=== PATIENT | female | born 1935 | race Caucasian/White ===

== ENCOUNTER 2020-08-29 15:18 | Inpatient (IN) ==
[2020-08-29] MEDS ORDERED: SODIUM CHLORIDE 0.9% 500 ML IV ONE (16:09)
--- NOTE | 2020-08-29 16:31 | XRay Report ---
XR chest 1V portable HISTORY: SEPSIS COMPARISON: None. FINDINGS: Progressive displacement of the right humeral head/neck fracture. This now demonstrates up to 3 mm of medial displacement. No dislocation. The heart is mildly enlarged. No pneumothorax. No ple ural effusions. Mild diffuse interstitial thickening with patchy airspace opacities in the mid to low er lung zones. IMPRESSION: 1. Mild diffuse interstitial thickening with patchy hazy airspace opacity within the mid to lower jacoby g zones. This could represent developing pulmonary edema or a pneumonia. 2. The heart is mildly enlarged. 3. Progressive displacement of the right humeral neck fracture. ACT 112: Negative or not required by law. Electronically signed by: John Iqbal M.D. 08/29/2020 4:30 PM
[2020-08-29 17:09] LABS: Basophils # (auto) 0.02 K/uL (0-0.2); Basophils % (auto) 0.2 %; Eosinophils # (auto) 0.21 K/uL (0-0.5); Eosinophils % (auto) 2.2 %; Hematocrit (blood only) 32.4 % (37-47); Hemoglobin 10.1 g/dL (12.0-16.0); Immature Granulocytes # (auto) 0.02 K/uL (0.00-0.02); Immature Granulocytes % (auto) 0.2 %; Lymphocytes # (auto) 3.01 K/uL (1.2-3.4); Mean Corpuscular Hemoglobin 27.4 pg (25-34); Mean Corpuscular Hgb Conc 31.2 g/dL (32-36); Mean Platelet Volume 9.9 fL (7.4-10.4); Monocytes # (auto) 0.86 K/uL (0.11-0.59); Monocytes % (auto) 9.1 %; Neutrophils # (auto) 5.29 K/uL (1.4-6.5); Neutrophils % (auto) 56.3 %; Platelet Count 332 K/uL (130-400); RDW Coefficient of Variation 18.8 % (11.5-14.5); Red Blood Count 3.68 M/uL (4.2-5.4); White Blood Count 9.41 K/uL (4.8-10.8)
[2020-08-29 17:29] LABS: Alanine Aminotransferase 45 U/L (12-78); Albumin Level 2.6 gm/dl (3.4-5.0); Aspartate Aminotransferase 72 U/L (15-37); BUN Creatinine Ratio 27.4 (10-20); Bilirubin Direct 0.3 mg/dl (0-0.2); Blood Urea Nitrogen 31 mg/dl (7-18); Calcium 9.7 mg/dl (8.5-10.1); Carbon Dioxide 27 mmol/L (21-32); Chloride 105 mmol/L (98-107); Creatinine Clr Calc Pharmacy 41.2 ml/min; Est GFR (African American) 51.7; Est GFR (Non-African American) 44.6; Glucose 81 mg/dl (70-99); Lipase 79 U/L (73-393); Potassium 4.3 mmol/L (3.5-5.1); Sodium 138 mmol/L (136-145)
[2020-08-29 17:30] LABS: Albumin Globulin Ratio 0.8 (0.9-2); Alkaline Phosphatase 191 U/L (45-117); Bilirubin,Total 0.8 mg/dl (0.2-1); Creatine Kinase 48 U/L (26-192); Globulin 3.4 gm/dl (2.5-4.0); Phosphorus 2.9 mg/dl (2.5-4.9); Troponin I < 0.015 ng/ml (0-0.045)
[2020-08-29 17:31] LABS: INR 1.2 (0.9-1.1); Partial Thromboplastin Ratio 1.3; Partial Thromboplastin Time 34.3 Seconds (21.0-31.0)
--- NOTE | 2020-08-29 17:36 | Emergency Department Note ---
Impression & Plan Generalized weakness, Closed fracture of right proximal humerus, Recurrent falls, Confusion ED Provider Note NAME: HUONG EVERETT AGE: 85 SEX: F ARRIVES VIA: Ambulance INFORMANT: Patient, Niece ED PROVIDER(S): Richy Kinsey MD CHIEF COMPLAINT: Confusion, weakness PLAN: Disposition: Admit MEDICAL DECISION MAKING: The patient is a pleasant 85-year-old woman with a past medical history of TIA, A. fib on Eliquis, hypertension, hyperlipidemia, recent ED visit on 08/04 for mechanical fall where she suffered a right proximal humerus fracture where she preferred to not have surgery discharged to rehab subsequently now residing at intermediate facility who presents to the emergency department from her assisted living facility accompanied by her niece for worsening generalized weakness, increased confusion with repeat fall couple of days ago where she declined ED evaluation. She denies any head strike when she fell 2 days ago but the fall was unwitnessed. No report of fevers but there is concern there may be a UTI as she did have this recently. On arrival the patient is fatigued appearing but no acute distress, afebrile with stable vital signs. She appears clinically dry. Abdomen is benign. She does have mild lumbar tenderness without midline tenderness or step-offs. Pelvis is stable. Hips full range of motion bilaterally. She does have resolving ecchymosis on the right side of her head in setting of her fall several weeks ago. There is no acute traumatic findings of the head. She has no focal neurologic deficits. EKG without overt acute ischemia. CXR demonstrates interstitial thickening with patchy hazy airspace opacity within the mid to lower lung zones. WBC and platelets wnl. H/H similar to prior. Chemistry without acidosis. BUN/Cr > 30 c/w patient's clinically dry appearance. Electrolytes unremarkable. LFTs without significant abnormality. Troponin negative/undetectable. BNP wnl. Procalcitonin is not elevated. CT head negative for acute process. CT abd pelvis with subacute L1 compression fracture without retropulsion and otherwise no acute abdominal findings. UA without convincing evidence of infection. Covid-19, influenza, and RSV PCR negative. Upon re-evaluation the patient reported feeling improved with IVF hydration. We discussed her imaging at they did not feel that she has had a cough/symptoms to suggest PNA and so we agreed to defer treatment at this time. However, the patient's niece did feel as though she had not improved enough to return to her assisted living facility given she reported that he patient periodically would be "seeing things". Unfortunately, she did not think she would be able to participate sufficiently to go to [facility]. Thus the patient and her niece, agreed with plan for admission, PT/OT and likely SNF placement. Case was discussed with Dr. Dorman, [facility] hospitalist, who will evaluate the patient for admission. Triage Nursing notes reviewed and agree them. Prior medical records reviewed Vital Signs: reviewed and remarkable for no significant abnormalities Differential diagnosis: Infection, dehydration, metabolic abnormality, hypo/hyperglycemia, electrolyte disturbance, anemia, hypoxia, cardiac sources, intracerebral event, toxicologic, neurologic, as well as other pathologies. ER treatment provided: See below. Diagnostics interpreted by me: ECG: NSR, 61 bpm, no ectopy, no overt ST elevation or depression. Cardiac Monitoring: An order for continuous cardiac monitoring was placed and demonstrated NSR, 61 bpm, no ectopy. Laboratory studies: See below Imaging studies: XR chest 1V portable HISTORY: SEPSIS COMPARISON: None. FINDINGS: Progressive displacement of the right humeral head/neck fracture. This now demonstrates up to 3 mm of medial displacement. No dislocation. The heart is mildly enlarged. No pneumothorax. No pleural effusions. Mild diffuse interstitial thickening with patchy airspace opacities in the mid to lower lung zones. IMPRESSION: 1. Mild diffuse interstitial thickening with patchy hazy airspace opacity within the mid to lower lung zones. This could represent developing pulmonary edema or a pneumonia. 2. The heart is mildly enlarged. 3. Progressive displacement of the right humeral neck fracture. ACT 112: Negative or not required by law. -- HEAD CT NONCONTRAST CT DOSE: 994.86 mGycm HISTORY: confusion, fall TECHNIQUE: Multiaxial CT images of the head were performed without the use of intravenous contrast. Automated exposure control was utilized for this study. A dose lowering technique was utilized adhering to the principles of ALARA. Comparison: 08/04/2020 Findings: The paranasal sinuses and mastoid air cells are clear. The calvarium and skull base are intact. The ventricles and sulci are within normal limits. There is no mass, hematoma, midline shift, or acute infarct. Impression: No acute intracranial abnormality. ACT 112: Negative or not required by law. -- ABDOMEN AND PELVIS CT WITHOUT CONTRAST CT DOSE: 1218.46 mGycm HISTORY: lumbar pain fall, weakness/?UTI TECHNIQUE: Multiaxial CT images of the abdomen and pelvis were performed without contrast. A dose lowering technique was utilized adhering to the principles of ALARA. COMPARISON STUDY: None. FINDINGS: The lobular septal thickening and trace bilateral pleural effusions. This likely represents mild pulmonary edema. No pneumoperitoneum. No pneumatosis. There is mild anterior wedge-shaped compression fracture at L1. This appears to be acute to subacute. No associated retropulsion. Small hiatus hernia. Tiny fat and fluid filled umbilical ventral hernia. Cholecystectomy. The unenhanced liver, spleen, adrenal glands, and pancreas are unremarkable. No hydronephrosis. A 3.5 cm hypodense lesion within the left kidney. This is technically indeterminate on this noncontrast study but statistically represents a cyst. Normal bladder. Hysterectomy. No pelvic free fluid. No bowel wall thickening or obstruction. No retroperitoneal hematoma. Calcified plaque within the normal caliber abdominal aorta. IMPRESSION: 1. Mild anterior wedge-shaped compression fracture at L1. This appears to be acute to subacute. No associated retropulsion. 2. Mild interstitial pulmonary edema and trace bilateral pleural effusions. 3. Additional findings as described above. ACT 112: Negative or not required by law. Electronically signed by: John Iqbal M.D. 08/29/2020 5:56 PM Consultation(s): Case was discussed with Dr. Dorman, [facility] hospitalist, who will evaluate the patient for admission. HPI: The patient is a pleasant 85-year-old woman with a past medical history of TIA, A. fib on Eliquis, hypertension, hyperlipidemia, recent ED visit on 08/04 for mechanical fall where she suffered a right proximal humerus fracture where she preferred to not have surgery discharged to rehab subsequently now residing at intermediate facility who presents to the emergency department from her assisted living facility accompanied by her niece for worsening generalized weakness, increased confusion with repeat fall couple of days ago where she declined ED evaluation. She denies any head strike when she fell 2 days ago but the fall was unwitnessed. No report of fevers but there is concern there may be a UTI as she did have this recently. ROS: See above HPI for pertinent positives & negatives. A total of 10 systems reviewed and were otherwise negative. PAST MEDICAL HISTORY:See Below PAST SURGICAL HISTORY:See Below FAMILY HISTORY:See Below SOCIAL HISTORY:See Below HOME MEDICATIONS:See Below ALLERGIES:See Below VITALS:See Below PHYSICAL EXAMINATION: GENERAL: Awake, alert, fatigued-appearing, in no distress HENT: Normocephalic, resolving right sided ecchymosis. Oropharynx with dry mucous membranes and otherwise unremarkable. EYES: Normal conjunctiva. Sclera non-icteric. NECK: Supple. No nuchal rigidity. FROM. No JVD. RESPIRATORY: Clear to auscultation. CARDIAC: Regular rate, normal rhythm. Extremities warm and well perfused. Pulses equal. ABDOMEN: Soft, non-distended. No tenderness to palpation. No rebound or guarding. No masses. RECTAL: Deferred. MUSCULOSKELETAL: Chest examination reveals no tenderness. The back is symmetrical on inspection without obvious abnormality. There is no CVA tenderness to palpation. Mild lumbar tenderness without midline tenderness or step-offs. EXTREMITIES: Right arm in sling with upper arm deformity and resolving ecchymosis. Distal PMS intact. Calves are equal size bilaterally and non-tender. No edema. No discoloration. NEURO: Normal sensorium. No focal sensory or motor deficits noted. SKIN: No rash or jaundice noted. Richy Kinsey MD Past Med/Surg History Medical History (Updated 09/01/20 @ 06:26 by Richy Kinsey MD) Anemia Atrial fibrillation on eliquis daily and follows with Dr. Trenton Escalante esophagus Basal cell carcinoma of skin of left breast removed in office Chronic kidney disease, stage 3 Depression GERD (gastroesophageal reflux disease) Gout Hiatal hernia Hyperlipidemia Hypertension Kidney stones On anticoagulant therapy eliquis daily Sleep apnea cpap Stroke 10/2017--no deficits, follows with Dr. Lozano in [place] Surgical History History of bilateral cataract extraction History of cardiac cath x5--last was 2016 History of cardioversion 08/2018 @ [facility] History of cholecystectomy History of colonoscopy with polypectomy History of dilatation and curettage x4 History of esophagogastroduodenoscopy (EGD) History of heart artery stent 2004? 1 stent at [facility] History of left breast biopsy benign History of open reduction and internal fixation (ORIF) procedure left ankle--hardware in place History of right breast biopsy benign History of surgery benign tumor removal of left leg History of tonsillectomy History of tooth extraction some upper/lower teeth History of total hysterectomy with bilateral salpingo-oophorectomy (BSO) Family History Father Family history of diabetes mellitus Other No family history of adverse response to anesthesia Social History Smoking Status: Never smoker Second Hand Exposure: Yes (father smoked); Hx Alcohol Use: No Hx Substance Use: No Preferred Language: Palestinian Communication Ability: Effective Workshop Manager Required: No Beliefs That Will Affect Care: None Current Living Situation: Personal Care Facility Feels Safe at Home: Yes Assistive Devices: None Allergies Allergies Allergy/AdvReac Type Severity Reaction Status Date / Time albuterol Allergy Severe severe Verified 08/29/20 17:18 tachycardia "heart rate was 252" levofloxacin [From Levaquin] Allergy Intermediate Tachycardia Verified 08/29/20 17:18 tetracycline Allergy Intermediate Hives Verified 08/29/20 17:18 Blvhzwg-Xyw-Dik Reductase Allergy Mild "leg Verified 08/29/20 17:18 Inhibitor cramps" with Lipitor sulfamethoxazole AdvReac Mild nausea/vomi Verified 08/29/20 17:18 [From Bactrim] ting trimethoprim [From Bactrim] AdvReac Mild nausea/vomi Verified 08/29/20 17:18 ting Home Meds Home Medications Medication Instructions Recorded Confirmed Eliquis 2.5 mg PO BID 04/05/19 08/29/20 amiodarone 200 mg PO BID 04/05/19 08/29/20 aspirin 81 mg PO HS 04/05/19 08/29/20 esomeprazole magnesium 40 mg PO QAM 04/05/19 08/29/20 ezetimibe 10 mg PO HS 04/05/19 08/29/20 folic acid 1 mg PO QAM 04/05/19 08/29/20 hydroxyzine HCl 10 mg PO Q6 PRN 04/05/19 08/29/20 metoprolol succinate 25 mg PO QAM 04/05/19 08/29/20 nitroglycerin 1 patch TRANSDERMAL QAM 04/05/19 08/29/20 olmesartan 40 mg PO QAM 04/05/19 08/29/20 rosuvastatin [Crestor] 5 mg PO HS 04/05/19 08/29/20 sertraline 75 mg PO QAM 04/05/19 08/29/20 nitroglycerin [Nitrostat] 0.4 mg SUBLINGUAL UD PRN 07/12/19 08/29/20 amlodipine 5 mg PO QAM 08/04/20 08/29/20 Previous Rx's Medication Instructions Recorded tramadol 50 mg tablet 50 mg PO Q8H PRN #30 tab 08/08/20 Results & Data (ED) Vital Signs Vital Signs - 24 hr 08/29/20 15:25 08/29/20 16:00 08/29/20 16:32 Temperature 36.5 C Temperature Source Oral Pulse Rate 59 L 63 62 Pulse Rate [Right Finger] 59 L Pulse Rate from SpO2 Sensor 62 Pulse Rhythm [Right Finger] Pulse Strength [Right Finger] Respiratory Rate 20 19 20 Respiratory Effort / Characteristics Non-Labored Spontaneous Respiratory Depth Normal Respiratory Pattern Regular Blood Pressure 161/61 H 125/66 Blood Pressure [Left Arm] 161/61 H Blood Pressure Mean 94 85 Blood Pressure Mean [Left Arm] 94 Blood Pressure Position [Left Arm] Pulse Oximetry 59 L 96 95 Oxygen Delivery Method Room Air Room Air Sepsis Recent Fever Within 48 Hours No Sepsis New/Unexplained Change in Mental Status No Sepsis Action Taken by Nursing No Action Required 08/29/20 16:33 08/29/20 16:45 08/29/20 17:00 Temperature Temperature Source Pulse Rate 62 60 Pulse Rate [Right Finger] 61 Pulse Rate from SpO2 Sensor 62 60 Pulse Rhythm [Right Finger] Regular Pulse Strength [Right Finger] Normal Respiratory Rate 18 17 16 Respiratory Effort / Characteristics Non-Labored Spontaneous Respiratory Depth Normal Respiratory Pattern Regular Blood Pressure Blood Pressure [Left Arm] 156/52 H Blood Pressure Mean Blood Pressure Mean [Left Arm] 86 Blood Pressure Position [Left Arm] Lying Pulse Oximetry 96 96 95 Oxygen Delivery Method Room Air Sepsis Recent Fever Within 48 Hours Sepsis New/Unexplained Change in Mental Status Sepsis Action Taken by Nursing 08/29/20 17:01 08/29/20 17:02 08/29/20 17:32 Temperature Temperature Source Pulse Rate 60 61 62 Pulse Rate [Right Finger] Pulse Rate from SpO2 Sensor 60 61 60 Pulse Rhythm [Right Finger] Pulse Strength [Right Finger] Respiratory Rate 14 20 11 L Respiratory Effort / Characteristics Respiratory Depth Respiratory Pattern Blood Pressure 156/52 H Blood Pressure [Left Arm] Blood Pressure Mean 86 Blood Pressure Mean [Left Arm] Blood Pressure Position [Left Arm] Pulse Oximetry 95 95 94 Oxygen Delivery Method Sepsis Recent Fever Within 48 Hours Sepsis New/Unexplained Change in Mental Status Sepsis Action Taken by Nursing Laboratory Data Result diagrams: 08/31/20 07:23 08/31/20 07:23 Lab Results 08/29/20 08/29/20 08/29/20 Range/Units 16:47 16:47 16:47 WBC 9.41 (4.8-10.8) K/uL RBC 3.68 L (4.2-5.4) M/uL Hgb 10.1 L (12.0-16.0) g/dL Hct 32.4 L (37-47) % MCV 88.0 (80-100) fL MCH 27.4 (25-34) pg MCHC 31.2 L (32-36) g/dL RDW Std Deviation 60.0 H (36.4-46.3) fL RDW Coeff of Mary Kate 18.8 H (11.5-14.5) % Plt Count 332 (130-400) K/uL MPV 9.9 (7.4-10.4) fL Immature Gran % (Auto) 0.2 % Neut % (Auto) 56.3 % Lymph % (Auto) 32.0 % [place] % (Auto) 9.1 % Eos % (Auto) 2.2 % Baso % (Auto) 0.2 % Neut # (Auto) 5.29 (1.4-6.5) K/uL Lymph # (Auto) 3.01 (1.2-3.4) K/uL [place] # (Auto) 0.86 H (0.11-0.59) K/uL Eos # (Auto) 0.21 (0-0.5) K/uL Baso # (Auto) 0.02 (0-0.2) K/uL Immature Gran # (Auto) 0.02 (0.00-0.02) K/uL PT 12.0 (9.0-12.0) Seconds INR 1.2 H (0.9-1.1) APTT 34.3 H (21.0-31.0) Seconds PTT Ratio 1.3 Sodium 138 (136-145) mmol/L Potassium 4.3 (3.5-5.1) mmol/L Chloride 105 (98-107) mmol/L Carbon Dioxide 27 (21-32) mmol/L Anion Gap 6.0 (3-11) BUN 31 H (7-18) mg/dl Creatinine 1.13 (0.6-1.2) mg/dl Est Cr Clr Drug Dosing 41.2 ml/min Est GFR ( Amer) 51.7 Est GFR (Non-Af Amer) 44.6 BUN/Creatinine Ratio 27.4 H (10-20) Glucose 81 (70-99) mg/dl Lactate (0.4-2.0) mmol/L Calcium 9.7 (8.5-10.1) mg/dl Phosphorus 2.9 (2.5-4.9) mg/dl Magnesium 2.0 (1.8-2.4) mg/dl Total Bilirubin 0.8 (0.2-1) mg/dl Direct Bilirubin 0.3 H (0-0.2) mg/dl AST 72 H (15-37) U/L ALT 45 (12-78) U/L Alkaline Phosphatase 191 H (45-117) U/L Total Creatine Kinase 48 (26-192) U/L Troponin I < 0.015 (0-0.045) ng/ml NT-Pro-B Natriuret Pep (0-1800) pg/ml Total Protein 6.0 L (6.4-8.2) gm/dl Albumin 2.6 L (3.4-5.0) gm/dl Globulin 3.4 (2.5-4.0) gm/dl Albumin/Globulin Ratio 0.8 L (0.9-2) Lipase 79 (73-393) U/L Procalcitonin (0-0.5) ng/ml TSH (0.300-4.500) uIu/ml Urine Color Urine Appearance (Clear) Urine pH (4.5-7.5) Ur Specific Allison (1.000-1.030) Urine Protein (Negative) Urine Glucose (UA) (Negative) Urine Ketones (Negative) Urine Blood (Negative) Urine Nitrite (Negative) Urine Bilirubin (Negative) Urine Urobilinogen (Negative) Ur Leukocyte Esterase (Negative) Urine WBC (Auto) (0-5) /hpf Urine RBC (Auto) (0-4) /hpf U Hyaline Cast (Auto) (0-5) /lpf U Epithel Cells (Auto) (0-5) /lpf Urine Bacteria (Auto) (Negative) 08/29/20 08/29/20 08/29/20 Range/Units 16:47 16:47 16:47 WBC (4.8-10.8) K/uL RBC (4.2-5.4) M/uL Hgb (12.0-16.0) g/dL Hct (37-47) % MCV (80-100) fL MCH (25-34) pg MCHC (32-36) g/dL RDW Std Deviation (36.4-46.3) fL RDW Coeff of Mary Kate (11.5-14.5) % Plt Count (130-400) K/uL MPV (7.4-10.4) fL Immature Gran % (Auto) % Neut % (Auto) % Lymph % (Auto) % [place] % (Auto) % Eos % (Auto) % Baso % (Auto) % Neut # (Auto) (1.4-6.5) K/uL Lymph # (Auto) (1.2-3.4) K/uL [place] # (Auto) (0.11-0.59) K/uL Eos # (Auto) (0-0.5) K/uL Baso # (Auto) (0-0.2) K/uL Immature Gran # (Auto) (0.00-0.02) K/uL PT (9.0-12.0) Seconds INR (0.9-1.1) APTT (21.0-31.0) Seconds PTT Ratio Sodium (136-145) mmol/L Potassium (3.5-5.1) mmol/L Chloride (98-107) mmol/L Carbon Dioxide (21-32) mmol/L Anion Gap (3-11) BUN (7-18) mg/dl Creatinine (0.6-1.2) mg/dl Est Cr Clr Drug Dosing ml/min Est GFR ( Amer) Est GFR (Non-Af Amer) BUN/Creatinine Ratio (10-20) Glucose (70-99) mg/dl Lactate 1.0 (0.4-2.0) mmol/L Calcium (8.5-10.1) mg/dl Phosphorus (2.5-4.9) mg/dl Magnesium (1.8-2.4) mg/dl Total Bilirubin (0.2-1) mg/dl Direct Bilirubin (0-0.2) mg/dl AST (15-37) U/L ALT (12-78) U/L Alkaline Phosphatase (45-117) U/L Total Creatine Kinase (26-192) U/L Troponin I (0-0.045) ng/ml NT-Pro-B Natriuret Pep 1583 (0-1800) pg/ml Total Protein (6.4-8.2) gm/dl Albumin (3.4-5.0) gm/dl Globulin (2.5-4.0) gm/dl Albumin/Globulin Ratio (0.9-2) Lipase (73-393) U/L Procalcitonin 0.06 (0-0.5) ng/ml TSH 3.810 (0.300-4.500) uIu/ml Urine Color Urine Appearance (Clear) Urine pH (4.5-7.5) Ur Specific Allison (1.000-1.030) Urine Protein (Negative) Urine Glucose (UA) (Negative) Urine Ketones (Negative) Urine Blood (Negative) Urine Nitrite (Negative) Urine Bilirubin (Negative) Urine Urobilinogen (Negative) Ur Leukocyte Esterase (Negative) Urine WBC (Auto) (0-5) /hpf Urine RBC (Auto) (0-4) /hpf U Hyaline Cast (Auto) (0-5) /lpf U Epithel Cells (Auto) (0-5) /lpf Urine Bacteria (Auto) (Negative) 08/29/20 Range/Units 17:45 WBC (4.8-10.8) K/uL RBC (4.2-5.4) M/uL Hgb (12.0-16.0) g/dL Hct (37-47) % MCV (80-100) fL MCH (25-34) pg MCHC (32-36) g/dL RDW Std Deviation (36.4-46.3) fL RDW Coeff of Mary Kate (11.5-14.5) % Plt Count (130-400) K/uL MPV (7.4-10.4) fL Immature Gran % (Auto) % Neut % (Auto) % Lymph % (Auto) % [place] % (Auto) % Eos % (Auto) % Baso % (Auto) % Neut # (Auto) (1.4-6.5) K/uL Lymph # (Auto) (1.2-3.4) K/uL [place] # (Auto) (0.11-0.59) K/uL Eos # (Auto) (0-0.5) K/uL Baso # (Auto) (0-0.2) K/uL Immature Gran # (Auto) (0.00-0.02) K/uL PT (9.0-12.0) Seconds INR (0.9-1.1) APTT (21.0-31.0) Seconds PTT Ratio Sodium (136-145) mmol/L Potassium (3.5-5.1) mmol/L Chloride (98-107) mmol/L Carbon Dioxide (21-32) mmol/L Anion Gap (3-11) BUN (7-18) mg/dl Creatinine (0.6-1.2) mg/dl Est Cr Clr Drug Dosing ml/min Est GFR ( Amer) Est GFR (Non-Af Amer) BUN/Creatinine Ratio (10-20) Glucose (70-99) mg/dl Lactate (0.4-2.0) mmol/L Calcium (8.5-10.1) mg/dl Phosphorus (2.5-4.9) mg/dl Magnesium (1.8-2.4) mg/dl Total Bilirubin (0.2-1) mg/dl Direct Bilirubin (0-0.2) mg/dl AST (15-37) U/L ALT (12-78) U/L Alkaline Phosphatase (45-117) U/L Total Creatine Kinase (26-192) U/L Troponin I (0-0.045) ng/ml NT-Pro-B Natriuret Pep (0-1800) pg/ml Total Protein (6.4-8.2) gm/dl Albumin (3.4-5.0) gm/dl Globulin (2.5-4.0) gm/dl Albumin/Globulin Ratio (0.9-2) Lipase (73-393) U/L Procalcitonin (0-0.5) ng/ml TSH (0.300-4.500) uIu/ml Urine Color Dark Yellow Urine Appearance Clear (Clear) Urine pH 5.0 (4.5-7.5) Ur Specific Allison 1.021 (1.000-1.030) Urine Protein Negative (Negative) Urine Glucose (UA) Negative (Negative) Urine Ketones 1+ H (Negative) Urine Blood Negative (Negative) Urine Nitrite Negative (Negative) Urine Bilirubin Negative (Negative) Urine Urobilinogen Negative (Negative) Ur Leukocyte Esterase Trace H (Negative) Urine WBC (Auto) 1-5 (0-5) /hpf Urine RBC (Auto) 0-4 (0-4) /hpf U Hyaline Cast (Auto) 1-5 (0-5) /lpf U Epithel Cells (Auto) 10-20 H (0-5) /lpf Urine Bacteria (Auto) Negative (Negative) Administered Medications Amiodarone HCl (Amiodarone 200 Mg Tab) 200 mg PO BID [facility] Stop: 09/28/20 21:57 Last Admin: 08/31/20 21:43 Dose: Not Given Documented by: [id number] Admin: 08/31/20 11:38 Dose: Not Given Documented by: [id number] Admin: 08/30/20 20:21 Dose: 200 mg Documented by: [id number] Admin: 08/30/20 08:40 Dose: 200 mg Documented by: [id number] Admin: 08/29/20 22:57 Dose: 200 mg Documented by: [id number] Apixaban (Apixaban 2.5 Mg Tab) 2.5 mg PO BID [facility] Stop: 09/28/20 21:57 Last Admin: 08/31/20 21:43 Dose: Not Given Documented by: [id number] Admin: 08/31/20 11:40 Dose: Not Given Documented by: [id number] Admin: 08/30/20 20:20 Dose: 2.5 mg Documented by: [id number] Admin: 08/30/20 08:40 Dose: 2.5 mg Documented by: [id number] Admin: 08/29/20 22:57 Dose: 2.5 mg Documented by: [id number] Aspirin (Aspirin 81 Mg Ectab) 81 mg PO HS [facility]ERMA[facility] Stop: 09/28/20 21:57 Last Admin: 08/31/20 21:43 Dose: Not Given Documented by: [id number] Admin: 08/30/20 20:21 Dose: 81 mg Documented by: [id number] Admin: 08/29/20 22:58 Dose: 81 mg Documented by: [id number] Diltiazem HCl (Diltiazem Hcl 30 Mg Tab) 30 mg PO TID [facility] Stop: 09/30/20 09:59 Last Admin: 08/31/20 21:43 Dose: Not Given Documented by: [id number] Admin: 08/31/20 15:41 Dose: Not Given Documented by: [id number] Admin: 08/31/20 11:40 Dose: Not Given Documented by: [id number] Ezetimibe (Ezetimibe 10 Mg Tablet) 10 mg PO HS [facility] Stop: 09/28/20 21:57 Last Admin: 08/31/20 21:44 Dose: Not Given Documented by: [id number] Admin: 08/30/20 20:21 Dose: 10 mg Documented by: [id number] Admin: 08/29/20 22:58 Dose: 10 mg Documented by: [id number] Folic Acid (Folic Acid 1 Mg Tab) 1 mg PO QAM [facility] Stop: 09/29/20 08:59 Last Admin: 08/31/20 11:40 Dose: Not Given Documented by: [id number] Admin: 08/30/20 08:39 Dose: 1 mg Documented by: [id number] Hydralazine HCl (Hydralazine Hcl 25 Mg Tab) 25 mg PO Q6H [facility] Stop: 09/30/20 13:14 Last Admin: 09/01/20 01:54 Dose: Not Given Documented by: [id number] Admin: 08/31/20 21:43 Dose: Not Given Documented by: [id number] Admin: 08/31/20 15:41 Dose: Not Given Documented by: [id number] Lorazepam (Ativan) 1 mg in 2 mls @ 0.5 mls/min IV UD PRN PRN Reason: Sedation Stop: 09/29/20 16:27 Last Admin: 08/31/20 00:10 Dose: 0.5 mls/min Documented by: [id number] Cefepime HCl 1,000 mg/ Syringe 11.3 mls @ 5.5 mls/min IV Q12H [facility]; Protocol Stop: 09/03/20 04:59 Last Admin: 09/01/20 05:52 Dose: 5.5 mls/min Documented by: [id number] Sodium Chloride (Nss 1000ml) 1,000 mls @ 80 mls/hr IV .[id number] [facility] Stop: 09/30/20 16:29 Last Admin: 09/01/20 05:52 Dose: 80 mls/hr Documented by: [id number] Infusion: 09/01/20 05:52 Dose: 80 mls/hr Documented by: [id number] Admin: 08/31/20 17:29 Dose: 80 mls/hr Documented by: [id number] Metoprolol Succinate (Metoprolol Succ 25mg Ext Rel Tab) 25 mg PO BID [facility] Stop: 09/30/20 09:59 Last Admin: 08/31/20 21:43 Dose: Not Given Documented by: [id number] Admin: 08/31/20 11:41 Dose: Not Given Documented by: [id number] Olmesartan (Olmesartan Medoxomil 40 Mg Tab) 40 mg PO QAM [facility] Stop: 09/29/20 04:59 Last Admin: 08/31/20 11:38 Dose: Not Given Documented by: [id number] Admin: 08/30/20 05:19 Dose: 40 mg Documented by: [id number] Pantoprazole Sodium ([facility]antoprazole 40 Mg Tab) [facility] [place]: 09/29/20 08:59 Last Admin: 08/31/20 11:40 Dose: Not Given Documented by: [id number] Admin: 08/30/20 08:39 Dose: 40 mg Documented by: [id number] Rosuvastatin Calcium (Rosuvastatin Calcium 5 Mg Tab) 5 mg PO HS [facility] Stop: 09/28/20 21:57 Last Admin: 08/31/20 21:43 Dose: Not Given Documented by: [id number] Admin: 08/30/20 20:20 Dose: 5 mg Documented by: [id number] Admin: 08/29/20 22:57 Dose: 5 mg Documented by: [id number] Sertraline HCl (Sertraline Hcl 50 Mg Tablet) [facility] [place] Stop: 09/29/20 08:59 Last Admin: 08/31/20 11:40 Dose: Not Given Documented by: [id number] Admin: 08/30/20 08:39 Dose: 75 mg Documented by: [id number] Tramadol HCl (Tramadol Hcl 50 Mg Tablet) 25 - 50 mg PO Q4H PRN PRN Reason: Pain Stop: 09/28/20 21:57 Last Admin: 08/31/20 00:49 Dose: 50 mg Documented by: [id number] Admin: 08/30/20 19:30 Dose: 50 mg Documented by: [id number] Discontinued Medications Amlodipine Besylate (Amlodipine Besylate 5 Mg Tab) [facility] [place] Stop: 09/29/20 04:34 Last Admin: 08/30/20 05:18 Dose: 5 mg Documented by: [id number] Diphenhydramine HCl (Diphenhydramine 50 Mg/Ml Vial) 25 mg IV ONCE PRN PRN 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 CLAUSTROPHOBIC Stop: 08/30/20 23:59 Last Admin: 08/30/20 23:13 Dose: 25 mg Documented by: [id number] Hydralazine HCl (Hydralazine Hcl 20 Mg/Ml Vial) 5 mg IV NOW ONE Stop: 08/31/20 21:39 Last Admin: 08/31/20 21:53 Dose: 5 mg Documented by: [id number] Sodium Chloride (Nss) 500 mls @ 999 mls/hr IV .Q31M ONE Stop: 08/29/20 16:39 Last Infusion: 08/29/20 17:42 Dose: 0 mls/hr Documented by: [id number] Admin: 08/29/20 17:01 Dose: 999 mls/hr Documented by: [id number] Vancomycin HCl 2,250 mg/ (Sodium Chloride) 545 mls @ 200 mls/hr IV 1700 [facility] Stop: 08/31/20 19:44 Last Infusion: 08/31/20 21:45 Dose: 0 mls/hr Documented by: [id number] Admin: 08/31/20 17:30 Dose: 200 mls/hr Documented by: [id number] Cefepime HCl 2,000 mg/ Syringe 20 mls @ 5 mls/min IV 1700 ONE Stop: 08/31/20 17:03 Last Admin: 08/31/20 17:30 Dose: 5 mls/min Documented by: [id number] Metoprolol Succinate (Metoprolol Succ 25mg Ext Rel Tab) [facility] [place] Stop: 09/29/20 08:59 Last Admin: 08/30/20 08:39 Dose: 25 mg Documented by: [id number] Discharge Plan Visit Data Chief Complaint: Urinary Symptoms ED Provider: Richy Kinsey Discharge Problem: Generalized weakness, Closed fracture of right proximal humerus, Recurrent falls, Confusion Patient Disposition: Admitted As Inpatient Discharge Instructions Interventions: ED Discharge Assessment Last Done: 08/29/20 21:28 Discharge Problem: Closed fracture of right proximal humerus Qualifiers: Encounter type: sequela
--- NOTE | 2020-08-29 17:51 | CT Scan Report ---
HEAD CT NONCONTRAST CT DOSE: 994.86 mGycm HISTORY: confusion, fall TECHNIQUE: Multiaxial CT images of the head were performed without the use of intravenous contrast. A utomated exposure control was utilized for this study. A dose lowering technique was utilized adheri ng to the principles of ALARA. Comparison: 08/04/2020 Findings: The paranasal sinuses and mastoid air cells are clear. The calvarium and skull base are int act. The ventricles and sulci are within normal limits. There is no mass, hematoma, midline shift, or acute infarct. Impression: No acute intracranial abnormality. ACT 112: Negative or not required by law. Electronically signed by: John Iqbal M.D. 08/29/2020 5:50 PM
--- NOTE | 2020-08-29 17:57 | CT Scan Report ---
ABDOMEN AND PELVIS CT WITHOUT CONTRAST CT DOSE: 1218.46 mGycm HISTORY: lumbar pain fall, weakness/?UTI TECHNIQUE: Multiaxial CT images of the abdomen and pelvis were performed without contrast. A dose lo wering technique was utilized adhering to the principles of ALARA. COMPARISON STUDY: None. FINDINGS: The lobular septal thickening and trace bilateral pleural effusions. This likely represents mild pulmonary edema. No pneumoperitoneum. No pneumatosis. There is mild anterior wedge-shaped compr ession fracture at L1. This appears to be acute to subacute. No associated retropulsion. Small hiatus hernia. Tiny fat and fluid filled umbilical ventral hernia. Cholecystectomy. The unenhanced liver, s pleen, adrenal glands, and pancreas are unremarkable. No hydronephrosis. A 3.5 cm hypodense lesion wi thin the left kidney. This is technically indeterminate on this noncontrast study but statistically r epresents a cyst. Normal bladder. Hysterectomy. No pelvic free fluid. No bowel wall thickening or obs truction. No retroperitoneal hematoma. Calcified plaque within the normal caliber abdominal aorta. IMPRESSION: 1. Mild anterior wedge-shaped compression fracture at L1. This appears to be acute to subacute. No as sociated retropulsion. 2. Mild interstitial pulmonary edema and trace bilateral pleural effusions. 3. Additional findings as described above. ACT 112: Negative or not required by law. Electronically signed by: John Iqbal M.D. 08/29/2020 5:56 PM
[2020-08-29 18:16] LABS: Appearance Urine Clear (Clear); Bacteria Urine Automated Negative (Negative); Bilirubin Urine Negative (Negative); Blood Urine Negative (Negative); Color Urine Dark Yellow; Glucose Urine UA Negative (Negative); Ketones Urine 1+ (Negative); Leukocyte Esterase Urine Trace (Negative); Nitrite Urine Negative (Negative); Protein Urine Negative (Negative); RBC Urine Automated 0-4 /hpf (0-4); Specific Gravity Urine 1.021 (1.000-1.030); Urobilinogen Urine Negative (Negative)
[2020-08-29 20:21] LABS: Influenza A virus by PCR Negative (Neg); Influenza B virus by PCR Negative (Neg); RSV by PCR Negative (Neg); SARS CoV2 RNA(COVID-19) InHosp NEGATIVE (Negative)
[2020-08-29 20:31] LABS: Thyroid Stimulating Hormone 3.81 uIu/ml (0.300-4.500)
--- NOTE | 2020-08-29 20:47 | History & Physical Report ---
Date of Service August 29, 2020 Assessment & Plan (1) Recurrent falls: safety concerns at patient's current assisted living facility residence given ambulatory dysfunction. Recent traumatic right shoulder fracture, conservative management recommended by Orthopedics as per patient hx CAD as per records TIA as per records A. fib on Eliquis, patient NSR hypertension, slightly elevated hyperlipidemia on statin Rx chronic anemia, hemoglobin at baseline mood disorder, at baseline past tobacco abuse GMF PT OT eval Social service RE discharge planning/placement Facilitate home BP meds, may need dose titration DVT prophylaxis with Eliquis DNR Patient niece requesting updates providers. Ms. Jaquelin Armendariz, contact #[phone]. Text document was generated using [employer] voice recognition software. It may contain grammatical or spelling errors. Kindly contact undersigned for clarification of any documentation item in question. History of Present Illness Chief Complaint: Worsening weakness, confusion, fall at assisted living facility Primary Care Provider: Vibha Quiñones MD History obtained from patient, family, and records. Patient is a reliable historian. Medical history significant for CAD as per records, TIA as per records, A. fib on Eliquis, hypertension, hyperlipidemia, chronic anemia (baseline hemoglobin of 10), MGUS as per records, mood disorder, ambulatory dysfunction, past tobacco abuse. Recent ER visit 3 weeks ago for for a mechanical fall after tripping over a vacuum machine rug cleaner hitting her head. Patient noted to have traumatic scalp hematoma, periorbital contusion and subconjunctival hemorrhage right eye. Right humeral fracture noted on x-ray. Orthopedics recommended conservative management with sling and outpatient evaluation.\\\\ Patient discharged to [facility] facility from the ER where patient stayed from August 05 to August 17, 2020. Patient returned home to assisted living facility almost 2 weeks ago. At home, patient having visual hallucinations as per niece. Episode of confusion and generalized weakness. No chest pain, no S OB, no cough symptoms. No abdominal pain, no diarrhea, no dysuria symptoms. Patient had another fall 2 days ago but refused ED evaluation as per niece. Patient brought to the ER for evaluation this afternoon due to safety concerns. Patient much more clear after IV fluid administration at the ER. Medical History as above Surgical History : Ankle surgery, appendectomy, cholecystectomy, pilonidal cyst removal, hysterectomy, throat surgery Family History : Heart disease, dementia, ovarian cancer, prediabetes Personal/Social history : Last tobacco abuse, occasional EtOH intake, retired from office work Allergies Allergy/AdvReac Type Severity Reaction Status Date / Time albuterol Allergy Severe severe Verified 08/29/20 17:18 tachycardia "heart rate was 252" levofloxacin [From Levaquin] Allergy Intermediate Tachycardia Verified 08/29/20 17:18 tetracycline Allergy Intermediate Hives Verified 08/29/20 17:18 [id number] Reductase Allergy Mild "leg Verified 08/29/20 17:18 Inhibitor cramps" with Lipitor sulfamethoxazole AdvReac Mild nausea/vomi Verified 08/29/20 17:18 [From Bactrim] ting trimethoprim [From Bactrim] AdvReac Mild nausea/vomi Verified 08/29/20 17:18 ting Home Medications Medication Instructions Recorded Confirmed Type Eliquis 2.5 mg PO BID 04/05/19 08/29/20 History amiodarone 200 mg PO BID 04/05/19 08/29/20 History aspirin 81 mg PO HS 04/05/19 08/29/20 History esomeprazole magnesium 40 mg PO QAM 04/05/19 08/29/20 History ezetimibe 10 mg PO HS 04/05/19 08/29/20 History folic acid 1 mg PO QAM 04/05/19 08/29/20 History hydroxyzine HCl 10 mg PO Q6 PRN 04/05/19 08/29/20 History metoprolol succinate 25 mg PO QAM 04/05/19 08/29/20 History nitroglycerin 1 patch TRANSDERMAL QAM 04/05/19 08/29/20 History olmesartan 40 mg PO QAM 04/05/19 08/29/20 History rosuvastatin [Crestor] 5 mg PO HS 04/05/19 08/29/20 History sertraline 75 mg PO QAM 04/05/19 08/29/20 History nitroglycerin [Nitrostat] 0.4 mg SUBLINGUAL UD PRN 07/12/19 08/29/20 History amlodipine 5 mg PO QAM 08/04/20 08/29/20 History tramadol 50 mg tablet 50 mg PO Q8H PRN #30 tab 08/08/20 08/29/20 Rx Past Med/Surg History Medical History (Updated 03/31/21 @ 06:51 by Michael Dorman MD) Anemia Atrial fibrillation on eliquis daily and follows with Dr. Chowdhury Barretteran esophagus Basal cell carcinoma of skin of left breast removed in office Chronic kidney disease, stage 3 Depression GERD (gastroesophageal reflux disease) Gout Hiatal hernia Hyperlipidemia Hypertension Kidney stones On anticoagulant therapy eliquis daily Sleep apnea cpap Stroke 10/2017--no deficits, follows with Dr. Lozano in [place] Surgical History History of bilateral cataract extraction History of cardiac cath x5--last was 2015 History of cardioversion 08/2018 @ [facility] History of cholecystectomy History of colonoscopy with polypectomy History of dilatation and curettage x4 History of esophagogastroduodenoscopy (EGD) History of heart artery stent 2004? 1 stent at [facility] History of left breast biopsy benign History of open reduction and internal fixation (ORIF) procedure left ankle--hardware in place History of right breast biopsy benign History of surgery benign tumor removal of left leg History of tonsillectomy History of tooth extraction some upper/lower teeth History of total hysterectomy with bilateral salpingo-oophorectomy (BSO) Family History Father Family history of diabetes mellitus Other No family history of adverse response to anesthesia Social History Smoking Status: Never smoker Second Hand Exposure: Yes (father smoked); Hx Alcohol Use: No Hx Substance Use: No Preferred Language: Belarusian Communication Ability: Effective 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 Beliefs That Will Affect Care: None Current Living Situation: Personal Care Facility Feels Safe at Home: Yes Assistive Devices: None Review of Systems Review of Systems: As per HPI, all 10 systems reviewed, all other ROS negative Physical Exam Physical Exam: GENERAL: Comfortable, morbidly obese, pleasant, no respiratory distress SKIN: Pallor, healing ecchymoses on the face and neck, warm HEENT: Pale palpebral conjunctivae, no ptosis, dry buccal mucosa NECK : Supple, short neck, no tenderness CHEST : Decreased breath sounds, no tenderness HEART : RRR, no obvious murmurs ABDOMEN: Some distention, nontender EXTREMITIES : Minimal LE swelling, no LE tenderness, sling over right shoulder NEUROLOGIC : Coherent, no facial asymmetry, gait and stance not assessed Results & Data Results & Data ([facility]) Vital Signs (Past 12 Hours) Vital Signs Temp Pulse Pulse Resp BP BP Pulse Ox 08/29/20 19:31 63 17 147/58 H 08/29/20 19:30 62 14 97 08/29/20 19:00 60 20 08/29/20 18:33 59 L 14 08/29/20 18:32 60 15 159/66 H 08/29/20 18:30 60 16 08/29/20 18:01 59 L 15 158/61 H 08/29/20 18:00 59 L 19 08/29/20 17:52 61 14 178/68 H 95 08/29/20 17:32 62 11 L 94 08/29/20 17:02 61 20 95 08/29/20 17:01 60 14 156/52 H 95 08/29/20 17:00 60 16 95 08/29/20 16:45 61 17 156/52 H 96 08/29/20 16:33 62 18 96 08/29/20 16:32 62 20 95 08/29/20 16:00 63 19 125/66 96 08/29/20 15:25 36.5 C 59 L 59 L 20 161/61 H 161/61 H 59 L Laboratory Results Laboratory Results WBC 9.41 K/uL (4.8-10.8) 08/29/20 16:47 RBC 3.68 M/uL (4.2-5.4) L 08/29/20 16:47 Hgb 10.1 g/dL (12.0-16.0) L 08/29/20 16:47 Hct 32.4 % (37-47) L 08/29/20 16:47 MCV 88.0 fL (80-100) 08/29/20 16:47 MCH 27.4 pg (25-34) 08/29/20 16:47 MCHC 31.2 g/dL (32-36) L 08/29/20 16:47 RDW Std Deviation 60.0 fL (36.4-46.3) H 08/29/20 16:47 RDW Coeff of Mary Kate 18.8 % (11.5-14.5) H 08/29/20 16:47 Plt Count 332 K/uL (130-400) 08/29/20 16:47 MPV 9.9 fL (7.4-10.4) 08/29/20 16:47 Immature Gran % (Auto) 0.2 % 08/29/20 16:47 Neut % (Auto) 56.3 % 08/29/20 16:47 Lymph % (Auto) 32.0 % 08/29/20 16:47 [place] % (Auto) 9.1 % 08/29/20 16:47 Eos % (Auto) 2.2 % 08/29/20 16:47 Baso % (Auto) 0.2 % 08/29/20 16:47 Neut # (Auto) 5.29 K/uL (1.4-6.5) 08/29/20 16:47 Lymph # (Auto) 3.01 K/uL (1.2-3.4) 08/29/20 16:47 [place] # (Auto) 0.86 K/uL (0.11-0.59) H 08/29/20 16:47 Eos # (Auto) 0.21 K/uL (0-0.5) 08/29/20 16:47 Baso # (Auto) 0.02 K/uL (0-0.2) 08/29/20 16:47 Immature Gran # (Auto) 0.02 K/uL (0.00-0.02) 08/29/20 16:47 PT 12.0 Seconds (9.0-12.0) 08/29/20 16:47 INR 1.2 (0.9-1.1) H 08/29/20 16:47 APTT 34.3 Seconds (21.0-31.0) H 08/29/20 16:47 PTT Ratio 1.3 08/29/20 16:47 Sodium 138 mmol/L (136-145) 08/29/20 16:47 Potassium 4.3 mmol/L (3.5-5.1) 08/29/20 16:47 Chloride 105 mmol/L (98-107) 08/29/20 16:47 Carbon Dioxide 27 mmol/L (21-32) 08/29/20 16:47 Anion Gap 6.0 (3-11) 08/29/20 16:47 BUN 31 mg/dl (7-18) H 08/29/20 16:47 Creatinine 1.13 mg/dl (0.6-1.2) 08/29/20 16:47 Est Cr Clr Drug Dosing 41.2 ml/min 08/29/20 16:47 Est GFR ( Amer) 51.7 08/29/20 16:47 Est GFR (Non-Af Amer) 44.6 08/29/20 16:47 BUN/Creatinine Ratio 27.4 (10-20) H 08/29/20 16:47 Glucose 81 mg/dl (70-99) 08/29/20 16:47 Lactate 1.0 mmol/L (0.4-2.0) 08/29/20 16:47 Calcium 9.7 mg/dl (8.5-10.1) 08/29/20 16:47 Phosphorus 2.9 mg/dl (2.5-4.9) 08/29/20 16:47 Magnesium 2.0 mg/dl (1.8-2.4) 08/29/20 16:47 Total Bilirubin 0.8 mg/dl (0.2-1) 08/29/20 16:47 Direct Bilirubin 0.3 mg/dl (0-0.2) H 08/29/20 16:47 AST 72 U/L (15-37) H 08/29/20 16:47 ALT 45 U/L (12-78) 08/29/20 16:47 Alkaline Phosphatase 191 U/L (45-117) H 08/29/20 16:47 Total Creatine Kinase 48 U/L (26-192) 08/29/20 16:47 Troponin I < 0.015 ng/ml (0-0.045) 08/29/20 16:47 NT-Pro-B Natriuret Pep 1583 pg/ml (0-1800) 08/29/20 16:47 Total Protein 6.0 gm/dl (6.4-8.2) L 08/29/20 16:47 Albumin 2.6 gm/dl (3.4-5.0) L 08/29/20 16:47 Globulin 3.4 gm/dl (2.5-4.0) 08/29/20 16:47 Albumin/Globulin Ratio 0.8 (0.9-2) L 08/29/20 16:47 Lipase 79 U/L (73-393) 08/29/20 16:47 Procalcitonin 0.06 ng/ml (0-0.5) 08/29/20 16:47 TSH 3.810 uIu/ml (0.300-4.500) 08/29/20 16:47 Urine Color Dark Yellow 08/29/20 17:45 Urine Appearance Clear (Clear) 08/29/20 17:45 Urine pH 5.0 (4.5-7.5) 08/29/20 17:45 Ur Specific [place] 1.021 (1.000-1.030) 08/29/20 17:45 Urine Protein Negative (Negative) 08/29/20 17:45 Urine Glucose (UA) Negative (Negative) 08/29/20 17:45 Urine Ketones 1+ (Negative) H 08/29/20 17:45 Urine Blood Negative (Negative) 08/29/20 17:45 Urine Nitrite Negative (Negative) 08/29/20 17:45 Urine Bilirubin Negative (Negative) 08/29/20 17:45 Urine Urobilinogen Negative (Negative) 08/29/20 17:45 Ur Leukocyte Esterase Trace (Negative) H 08/29/20 17:45 Urine WBC (Auto) 1-5 /hpf (0-5) 08/29/20 17:45 Urine RBC (Auto) 0-4 /hpf (0-4) 08/29/20 17:45 U Hyaline Cast (Auto) 1-5 /lpf (0-5) 08/29/20 17:45 U Epithel Cells (Auto) 10-20 /lpf (0-5) H 08/29/20 17:45 Urine Bacteria (Auto) Negative (Negative) 08/29/20 17:45 COVID-19 Eval Order CovFluRsv at [facility] 08/29/20 Unknown SARS-CoV-2 (PCR) NEGATIVE (Negative) 08/29/20 Unknown Influenza Type A (PCR) Negative (Neg) 08/29/20 Unknown Influenza Type B (PCR) Negative (Neg) 08/29/20 Unknown RSV (RT-PCR) Negative (Neg) 08/29/20 Unknown Impressions Abdomen/Pelvis CT 08/29/20 16:[address] WITHOUT CONTRAST CT DOSE: 1218.46 mGycm HISTORY: lumbar pain fall, weakness/?UTI TECHNIQUE: Multiaxial CT images of the abdomen and pelvis were performed without contrast. A dose lowering technique was utilized adhering to the principles of ALARA. COMPARISON STUDY: None. FINDINGS: The lobular septal thickening and trace bilateral pleural effusions. This likely represents mild pulmonary edema. No pneumoperitoneum. No pneumatosis. There is mild anterior wedge-shaped compression fracture at L1. This appears to be acute to subacute. No associated retropulsion. Small hiatus hernia. Tiny fat and fluid filled umbilical ventral hernia. Cholecystectomy. The unenhanced liver, spleen, adrenal glands, and pancreas are unremarkable. No hydronephrosis. A 3.5 cm hypodense lesion within the left kidney. This is technically indeterminate on this noncontrast study but statistically represents a cyst. Normal bladder. Hysterectomy. No pelvic free fluid. No bowel wall thickening or obstruction. No retroperitoneal hematoma. Calcified plaque within the normal caliber abdominal aorta. IMPRESSION: 1. Mild anterior wedge-shaped compression fracture at L1. This appears to be acute to subacute. No associated retropulsion. 2. Mild interstitial pulmonary edema and trace bilateral pleural effusions. 3. Additional findings as described above. ACT 112: Negative or not required by law. Electronically signed by: John Iqbal M.D. 08/29/2020 5:56 PM Chest X-Ray 08/29/20 16:04 XR chest 1V portable HISTORY: SEPSIS COMPARISON: None. FINDINGS: Progressive displacement of the right humeral head/neck fracture. This now demonstrates up to 3 mm of medial displacement. No dislocation. The heart is mildly enlarged. No pneumothorax. No pleural effusions. Mild diffuse interstitial thickening with patchy airspace opacities in the mid to lower lung zones. IMPRESSION: 1. Mild diffuse interstitial thickening with patchy hazy airspace opacity within the mid to lower lung zones. This could represent developing pulmonary edema or a pneumonia. 2. The heart is mildly enlarged. 3. Progressive displacement of the right humeral neck fracture. ACT 112: Negative or not required by law. Electronically signed by: John Iqbal M.D. 08/29/2020 4:[address] 08/29/20 16:[address] DOSE: 994.86 mGycm HISTORY: confusion, fall TECHNIQUE: Multiaxial CT images of the head were performed without the use of intravenous contrast. Automated exposure control was utilized for this study. A dose lowering technique was utilized adhering to the principles of ALARA. Comparison: 08/04/2020 Findings: The paranasal sinuses and mastoid air cells are clear. The calvarium and skull base are intact. The ventricles and sulci are within normal limits. There is no mass, hematoma, midline shift, or acute infarct. Impression: No acute intracranial abnormality. ACT 112: Negative or not required by law. Electronically signed by: John Iqbal M.D. 08/29/2020 5:50 PM Diagnostic Findings EKG as per my interpretation rate 60, NSR, normal axis, no ischemia
[2020-08-29] MEDS ORDERED: ACETAMINOPHEN 325 MG TAB PO PRN (21:58)
[2020-08-29] MEDS: APIXABAN 2.5 MG TAB PO SCH (22:57)
[2020-08-29] MEDS: AMIODARONE 200 MG TAB PO SCH (22:57)
[2020-08-29] MEDS: ROSUVASTATIN CALCIUM 5 MG TAB PO SCH (22:57)
[2020-08-29] MEDS: EZETIMIBE 10 MG TABLET PO SCH (22:58)
[2020-08-29] MEDS: ASPIRIN 81 MG ECTAB PO SCH (22:58)
[2020-08-30] MEDS ORDERED: amLODIPine BESYLATE 5 MG TAB PO SCH ×2 (04:35→09:00)
[2020-08-30] MEDS: OLMESARTAN MEDOXOMIL 40 MG TAB PO SCH (05:19)
[2020-08-30 06:50] LABS: Basophils # (auto) 0.02 K/uL (0-0.2); Basophils % (auto) 0.2 %; Eosinophils # (auto) 0.16 K/uL (0-0.5); Eosinophils % (auto) 1.6 %; Hematocrit (blood only) 34.5 % (37-47); Hemoglobin 10.8 g/dL (12.0-16.0); Immature Granulocytes # (auto) 0.03 K/uL (0.00-0.02); Immature Granulocytes % (auto) 0.3 %; Lymphocytes # (auto) 2.54 K/uL (1.2-3.4); Lymphocytes % (auto) 24.8 %; Mean Corpuscular Hemoglobin 27.7 pg (25-34); Mean Corpuscular Hgb Conc 31.3 g/dL (32-36); Mean Corpuscular Volume 88.5 fL (80-100); Mean Platelet Volume 9.8 fL (7.4-10.4); Monocytes % (auto) 10.7 %; Neutrophils # (auto) 6.41 K/uL (1.4-6.5); Neutrophils % (auto) 62.4 %; Platelet Count 353 K/uL (130-400); RDW Standard Deviation 60.7 fL (36.4-46.3); White Blood Count 10.26 K/uL (4.8-10.8)
[2020-08-30 07:19] LABS: Calcium 9.6 mg/dl (8.5-10.1); Creatinine Clr Calc Pharmacy 42.8 ml/min; Est GFR (Non-African American) 46.6; Potassium 4.5 mmol/L (3.5-5.1)
[2020-08-30] MEDS: SERTRALINE HCL 50 MG TABLET PO SCH (08:39)
[2020-08-30] MEDS: PANTOprazole 40 MG TAB PO SCH (08:39)
[2020-08-30] MEDS: FOLIC ACID 1 MG TAB PO SCH (08:39)
[2020-08-30] MEDS: APIXABAN 2.5 MG TAB PO SCH ×2 (08:40→20:20)
[2020-08-30] MEDS: AMIODARONE 200 MG TAB PO SCH ×2 (08:40→20:21)
[2020-08-30] MEDS ORDERED: METOPROLOL SUCC 25MG EXT REL TAB PO SCH (09:00)
[2020-08-30] MEDS ORDERED: OLMESARTAN MEDOXOMIL 40 MG TAB PO SCH (09:00)
--- NOTE | 2020-08-30 10:04 | Hospitalist Progress Note ---
Date of Service August 30, 2020 Assessment & Plan (1) Recurrent falls: Safety concerns at patient's current assisted living facility residence given ambulatory dysfunction. Recent traumatic right shoulder fracture, conservative management recommended by Orthopedics as per patient hx CAD as per records TIA as per records A. fib on Eliquis, patient NSR hypertension, slightly elevated hyperlipidemia on statin Rx chronic anemia, hemoglobin at baseline mood disorder, at baseline past tobacco abuse GMF PT OT eval Social service RE discharge planning/placement Facilitate home BP meds, may need dose titration DVT prophylaxis with Eliquis DNR Julito Ms. Jaquelin Xiao, #[phone]. Labs checked ROS-No Headache, No Visual Changes, No Nausea, No Vomiting, No Fever, No Chills, No Neck Pain or Stiffness, No Chest Pain, No Palpitations, No SOB, No PLAZA, No Cough, No Sputum, No Wheezing, No Abdominal Pain, No Diarrhea, No Hematemesis, No Hemoptysis, No Unexpected Weight Loss, No Flank pain, No Melena, No Hematochezia, No Frequency, No Urgency, No Burning, No Hematuria, No Rashes, No Diaphoresis. Appetite is Normal Physical Exam Gen-AAO x 3, NAD, Afebrile Head-Facial Bruising from falls, EOMI, PERRLA, Anicteric Sclera, No Posterior Pharyngeal Erythema Neck-Supple, No JVD, No Thyromegaly, No Masses, No LAD, No Bruits Lungs-Clear to Auscultation Bilaterally, No Rales, No Rhonchi, No Wheezing, No Crepitus Chest-No S4, +S1, +S2, No S3, No Murmurs, No Rubs, No Gallops, No Ectopy Abdomen-Soft, Bowel Sounds Present, Non Tender, Non Distended, No Hepatomegaly, No Splenomegaly, No Palpable Masses, No Rebound, No Rigidity, No Guarding Musculoskeletal-Full Range of Motion Bilaterally, No CVAT Extremities-No Cyanosis, No Clubbing, No Edema Nuero-Cranial Nerves II-XII grossly intact, Motor WNL, DTRs WNL, Strength WNL, Non Focal Psych-Normal Mood Admission and Anticipated Discharge Date Admission Date: August 29, 2020 Results & Data Results & Data ([facility]) Vital Signs (Past 12 Hours) Vital Signs Temp Pulse Resp BP Pulse Ox 08/30/20 07:35 36.7 C 69 20 167/67 H 92 08/30/20 04:40 201/73 H 08/29/20 22:29 36.4 C L 65 16 184/72 H 95
--- NOTE | 2020-08-30 14:32 | Electrocardiogram Report ---
Test Reason : Blood Pressure : / mmHG Vent. Rate : 061 BPM Atrial Rate : 061 BPM P-R Int : 162 ms QRS Dur : 102 ms QT Int : 452 ms P-R-T Axes : 068 059 027 degrees QTc Int : 455 ms Normal sinus rhythm Normal ECG When compared with ECG of 04-AUG-2020 10:22, No significant change was found Confirmed by Marino Green ([id number]) on 08/30/2020 2:31:52 PM Referred By: REFERRED SELF Confirmed By:Marino Green
[2020-08-30] MEDS ORDERED: LORazepam 1 MG/2 ML VIAL IV PRN (16:28)
[2020-08-30] MEDS ORDERED: diphenhydrAMINE 50 MG/ML VIAL IV PRN (16:48)
[2020-08-30] MEDS: traMADol HCL 50 MG TABLET PO PRN (19:30)
[2020-08-30] MEDS: ROSUVASTATIN CALCIUM 5 MG TAB PO SCH (20:20)
[2020-08-30] MEDS: ASPIRIN 81 MG ECTAB PO SCH (20:21)
[2020-08-30] MEDS: EZETIMIBE 10 MG TABLET PO SCH (20:21)
[2020-08-31] MEDS: traMADol HCL 50 MG TABLET PO PRN (00:49)
[2020-08-31 08:23] LABS: Hematocrit (blood only) 33.4 % (37-47); Hemoglobin 10.8 g/dL (12.0-16.0); Mean Corpuscular Hemoglobin 28.4 pg (25-34); Mean Corpuscular Hgb Conc 32.3 g/dL (32-36); Mean Corpuscular Volume 87.9 fL (80-100); Platelet Count 390 K/uL (130-400); RDW Coefficient of Variation 19.2 % (11.5-14.5); RDW Standard Deviation 60.6 fL (36.4-46.3); White Blood Count 12.87 K/uL (4.8-10.8)
--- NOTE | 2020-08-31 08:29 | Magnetic Resonance Report ---
MR brain wo con HISTORY: 85 years-old Female Altered acutely altered mental status with recent fall COMPARISON: Head CT 08/29/2020 TECHNIQUE: Planar multisequence MRI of the brain was obtained without the use of IV contrast. FINDINGS: Veterinary Medicine Doctor localizer images demonstrate no gross extracranial abnormality. No restricted diffusion to sugg est acute or subacute infarct. Motion degraded exam. No acute intracranial hemorrhage, midline shift, abnormal extra-axial collection, hydrocephalus or intracranial mass identified. No pathologic bloomi ng artifact. Age-related involutional changes. Mild to moderate white matter T2/FLAIR intensities are suggestive of chronic microvascular ischemic disease. Cerebral venous sinuses and major arterial radha w voids appear patent. Mastoid air cells and paranasal sinuses are clear. Prior bilateral lens replac ement. The skull and soft tissues are within normal limits. IMPRESSION: 1. Motion degraded exam without acute intracranial abnormality identified. 2. Age-related involutional changes with chronic microvascular ischemic disease. ACT 112: Negative or not required by law. The above report was generated using voice recognition software. It may contain grammatical, syntax o r spelling errors. Electronically signed by: Deon Pryor M.D. 08/31/2020 8:27 AM
--- NOTE | 2020-08-31 08:44 | Hospitalist Progress Note ---
Date of Service August 31, 2020 Assessment & Plan (1) Recurrent falls: safety concerns at patient's current assisted living facility residence given ambulatory dysfunction. Recent traumatic right shoulder fracture, conservative management recommended by Orthopedics as per patient hx CAD as per records TIA as per records A. fib on Eliquis, patient NSR hypertension, slightly elevated hyperlipidemia on statin Rx chronic anemia, hemoglobin at baseline mood disorder, at baseline past tobacco abuse PT/OT Social service RE discharge planning/placement Facilitate home BP meds, may need dose titration DVT prophylaxis with Eliquis DNR Ms. Jaquelin Armendariz, contact #[phone]. DC norvasc, Increase BBlocker to BID, Cardizem 30 TID and Monitor ROS-No Headache, No Visual Changes, No Nausea, No Vomiting, No Fever, No Chills, No Neck Pain or Stiffness, No Chest Pain, No Palpitations, No SOB, No PLAZA, No Cough, No Sputum, No Wheezing, No Abdominal Pain, No Diarrhea, No Hematemesis, No Hemoptysis, No Unexpected Weight Loss, No Flank pain, No Melena, No Hematochezia, No Frequency, No Urgency, No Burning, No Hematuria, No Rashes, No Diaphoresis. Appetite is Normal Physical Exam Gen-AAO x 3, NAD, Afebrile Head-Facial Bruising from falls, EOMI, PERRLA, Anicteric Sclera, No Posterior Pharyngeal Erythema Neck-Supple, No JVD, No Thyromegaly, No Masses, No LAD, No Bruits Lungs-Clear to Auscultation Bilaterally, No Rales, No Rhonchi, No Wheezing, No Crepitus Chest-No S4, +S1, +S2, No S3, No Murmurs, No Rubs, No Gallops, No Ectopy Abdomen-Soft, Bowel Sounds Present, Non Tender, Non Distended, No Hepatomegaly, No Splenomegaly, No Palpable Masses, No Rebound, No Rigidity, No Guarding Musculoskeletal-Full Range of Motion Bilaterally, No CVAT Extremities-No Cyanosis, No Clubbing, No Edema Nuero-Cranial Nerves II-XII grossly intact, Motor WNL, DTRs WNL, Strength WNL, Non Focal Psych-Normal Mood Admission and Anticipated Discharge Date Admission Date: August 29, 2020 Results & Data Results & Data ([facility]) Vital Signs (Past 12 Hours) Vital Signs Temp Pulse Resp BP Pulse Ox 08/31/20 07:47 36.8 C 68 16 188/71 H 95
[2020-08-31 08:56] LABS: BUN Creatinine Ratio 22.6 (10-20); Calcium 9.8 mg/dl (8.5-10.1); Creatinine Clr Calc Pharmacy 40.9 ml/min; Est GFR (African American) 51.1; Est GFR (Non-African American) 44.1; Potassium 4.2 mmol/L (3.5-5.1)
[2020-08-31] MEDS: OLMESARTAN MEDOXOMIL 40 MG TAB PO SCH (11:38)
[2020-08-31] MEDS: AMIODARONE 200 MG TAB PO SCH ×2 (11:38→21:43)
[2020-08-31] MEDS: SERTRALINE HCL 50 MG TABLET PO SCH (11:40)
[2020-08-31] MEDS: FOLIC ACID 1 MG TAB PO SCH (11:40)
[2020-08-31] MEDS: dilTIAZem HCL 30 MG TAB PO SCH ×3 (11:40→21:43)
[2020-08-31] MEDS: PANTOprazole 40 MG TAB PO SCH (11:40)
[2020-08-31] MEDS: APIXABAN 2.5 MG TAB PO SCH ×2 (11:40→21:43)
[2020-08-31] MEDS: METOPROLOL SUCC 25MG EXT REL TAB PO SCH ×2 (11:41→21:43)
[2020-08-31 15:17] LABS: Allen Test Pos (Pos); Base Excess ABG 1.9 mEq/L (-9-1.8); HCO3 ABG 26 mmol/L (19-24); Oxygen Saturation ABG 93.8 % (90-95); PCO2 ABG 39 mmHg (35-46); PO2 ABG 68 mmHg (80-95); pH ABG 7.45 (7.35-7.45)
[2020-08-31] MEDS: hydrALAZINE HCL 25 MG TAB PO SCH ×2 (15:41→21:43)
[2020-08-31] MEDS ORDERED: VANCOMYCIN CONSULT ACTIVE PRN (16:14)
[2020-08-31] MEDS ORDERED: VANCOMYCIN HCL 2,250 MG in SODIUM CHLORIDE 0.9% 500 ML IV SCH (17:00)
[2020-08-31] MEDS ORDERED: CEFEPIME 2,000 MG in SYRINGE 0 ML IV ONE (17:00)
[2020-08-31] MEDS: SODIUM CHLORIDE 0.9% 1000ML 1,000 ML IV SCH (17:29)
[2020-08-31] MEDS ORDERED: hydrALAZINE HCL 20 MG/ML VIAL IV ONE (21:38)
[2020-08-31] MEDS: ROSUVASTATIN CALCIUM 5 MG TAB PO SCH (21:43)
[2020-08-31] MEDS: ASPIRIN 81 MG ECTAB PO SCH (21:43)
[2020-08-31] MEDS: EZETIMIBE 10 MG TABLET PO SCH (21:44)
[2020-08-31] MEDS ORDERED: MICONAZOLE NITRATE POWDER 43 GM EXT PRN (22:51)
[2020-09-01] MEDS: hydrALAZINE HCL 25 MG TAB PO SCH ×4 (01:54→19:27)
[2020-09-01] MEDS ORDERED: CEFEPIME 1,000 MG in SYRINGE 0 ML IV SCH (05:00)
[2020-09-01] MEDS: SODIUM CHLORIDE 0.9% 1000ML 1,000 ML IV SCH ×2 (05:52→19:22)
[2020-09-01 07:43] LABS: Hematocrit (blood only) 32.2 % (37-47); Hemoglobin 10.3 g/dL (12.0-16.0); Mean Corpuscular Hemoglobin 28.1 pg (25-34); Mean Platelet Volume 9.6 fL (7.4-10.4); Platelet Count 351 K/uL (130-400); RDW Coefficient of Variation 19.6 % (11.5-14.5); RDW Standard Deviation 62.9 fL (36.4-46.3); Red Blood Count 3.66 M/uL (4.2-5.4); White Blood Count 11.87 K/uL (4.8-10.8)
[2020-09-01 08:14] LABS: BUN Creatinine Ratio 23.1 (10-20); Calcium 9.3 mg/dl (8.5-10.1); Creatinine Clr Calc Pharmacy 41.6 ml/min; Est GFR (African American) 52.2; Est GFR (Non-African American) 45.1
[2020-09-01] MEDS ORDERED: CEFEPIME 1,000 MG in SYRINGE 0 ML IV ONE (09:00)
--- NOTE | 2020-09-01 09:05 | Pharmacy Report ---
Pharmacy Abx Initial Consult - Date of Service September 01, 2020 - Pharmacy Dosing Scope Date of Consult: 08/31/20 Consultation requested by: Dr. Ojeda Pharmacy is consulted to initiate vancomycin IV dosing therapy, order appropriate labs and adjust drug dose/frequency. - Subjective The patient is a 85 year old F admitted on 08/29/20 20:56. - Objective Height: 5 ft 2 in Weight: 101.1 kg Vital Signs (Past 12hrs): Vital Signs Temp Pulse Pulse Resp BP Pulse Ox 09/01/20 08:17 36.9 C 76 14 170/62 H 95 09/01/20 01:50 66 156/55 H 08/31/20 23:05 37.1 C 67 16 151/70 H 93 Lab Results (24hrs): Laboratory Tests (24 Hours) 09/01/20 09/01/20 08/31/20 07:24 07:24 07:23 WBC 11.87 H Creatinine 1.12 1.14 Est Cr Clr Drug Dosing 41.6 40.9 Micro Results: 08/31/20 15:00 Aerobic Blood Culture - Pending Blood Anaerobic Blood Culture - Pending 08/31/20 15:00 Aerobic Blood Culture - Pending Blood Anaerobic Blood Culture - Pending - Assessment & Plan Assessment 85 year old F ordered empiric vancomycin and cefepime due to increasing WBC (12.87 K) and low-grade fever (Tmax: 37.7 C). Patient has history of recurrent falls with recent right humeral fracture in July of this year. Recent SNF stay from 08/05-08/17 of this year, then discharged back to assisted living facility. Blood cultures x 2 (08/29): no growth at 48 hours Blood cultures x 2 (08/31): pending Plan Vancomycin IV * Loading dose: 2250 mg (22 mg/kg) * Maintenance dose: 1250 mg IV (12 mg/kg) every 24 hours * Goal trough level empirically : 15 to 20 mcg/mL * Antibiotics ordered for 48 hours - will order trough level if extended beyond this Cefepime IV * Originally ordered as 1 g IV q12h -> this dose was increased to 2 g IV q12h empirically due to unknown source of infection * q12h dosing schedule is appropriate based on eCrCl of 42 mL/min Pharmacy will continue to follow and will adjust dose/frequency as necessary. Thank you.
[2020-09-01] MEDS: METOPROLOL SUCC 25MG EXT REL TAB PO SCH ×2 (09:52→20:50)
[2020-09-01] MEDS: dilTIAZem HCL 30 MG TAB PO SCH (09:52)
[2020-09-01] MEDS: OLMESARTAN MEDOXOMIL 40 MG TAB PO SCH (09:52)
[2020-09-01] MEDS: PANTOprazole 40 MG TAB PO SCH (09:53)
[2020-09-01] MEDS: SERTRALINE HCL 50 MG TABLET PO SCH (09:53)
[2020-09-01] MEDS: FOLIC ACID 1 MG TAB PO SCH (09:53)
[2020-09-01] MEDS: AMIODARONE 200 MG TAB PO SCH ×2 (09:54→20:50)
[2020-09-01] MEDS: APIXABAN 2.5 MG TAB PO SCH ×2 (09:54→20:50)
--- NOTE | 2020-09-01 10:12 | Hospitalist Progress Note ---
Date of Service September 01, 2020 Assessment & Plan (1) Generalized weakness: (2) Confusion: (3) Recurrent falls: (4) Closed fracture of right proximal humerus: (5) Colon polyp: (6) Hematochezia: (7) Barretts esophagus: (1) Recurrent falls: safety concerns at patient's current assisted living facility residence given ambulatory dysfunction. Recent traumatic right shoulder fracture-conservative management recommended by Orthopedics as per patient CAD as per records TIA as per records A. fib on Eliquis, patient NSR hypertension, slightly elevated hyperlipidemia on statin Rx chronic anemia, hemoglobin at baseline mood disorder, at baseline past tobacco abuse Leukocytosis and Fever-Abx started, Cefepime and Vanco, WBCs down today PT/OT Social service RE discharge planning/placement Facilitate home BP meds, may need dose titration DVT prophylaxis with Eliquis DNR Ms. Jaquelin Armendariz, contact #[phone]. DCd norvasc, Increased BBlocker to BID, Increse Cardizem to 60 TID and Monitor ROS-No Headache, No Visual Changes, No Nausea, No Vomiting, No Fever, No Chills, No Neck Pain or Stiffness, No Chest Pain, No Palpitations, No SOB, No PLAZA, No Cough, No Sputum, No Wheezing, No Abdominal Pain, No Diarrhea, No Hematemesis, No Hemoptysis, No Unexpected Weight Loss, No Flank pain, No Melena, No Hematochezia, No Frequency, No Urgency, No Burning, No Hematuria, No Rashes, No Diaphoresis. Appetite is Normal Physical Exam Gen-AAO x 3, NAD, Afebrile Head-Facial Bruising from falls, EOMI, PERRLA, Anicteric Sclera, No Posterior Pharyngeal Erythema Neck-Supple, No JVD, No Thyromegaly, No Masses, No LAD, No Bruits Lungs-Clear to Auscultation Bilaterally, No Rales, No Rhonchi, No Wheezing, No Crepitus Chest-No S4, +S1, +S2, No S3, No Murmurs, No Rubs, No Gallops, No Ectopy Abdomen-Soft, Bowel Sounds Present, Non Tender, Non Distended, No Hepatomegaly, No Splenomegaly, No Palpable Masses, No Rebound, No Rigidity, No Guarding Musculoskeletal-Full Range of Motion Bilaterally, No CVAT Extremities-No Cyanosis, No Clubbing, No Edema Nuero-Cranial Nerves II-XII grossly intact, Motor WNL, DTRs WNL, Strength WNL, Non Focal Psych-Normal Mood Admission and Anticipated Discharge Date Admission Date: August 29, 2020 Results & Data Results & Data ([facility]) Vital Signs (Past 12 Hours) Vital Signs Temp Pulse Pulse Resp BP Pulse Ox 09/01/20 08:17 36.9 C 76 14 170/62 H 95 09/01/20 01:50 66 156/55 H 08/31/20 23:05 37.1 C 67 16 151/70 H 93 (1) Closed fracture of right proximal humerus Encounter type: sequela
[2020-09-01] MEDS ORDERED: VANCOMYCIN HCL 1,250 MG in SODIUM CHLORIDE 0.9% 250 ML IV SCH ×2 (12:00→18:00)
[2020-09-01] MEDS: dilTIAZem HCl 60 MG TAB PO SCH ×3 (12:20→20:50)
[2020-09-01] MEDS ORDERED: Heparin IV Adult Wt-Based Standard *NO* Bolus Protocol ONE (14:11)
[2020-09-01] MEDS ORDERED: HEPARIN SODIUM/DEXTROSE 25,000 UNITS/500 ML BAG IV SCH (14:15)
[2020-09-01] MEDS ORDERED: Heparin IV Adult Wt-Based Standard *NO* Bolus Protocol IV SCH (16:00)
[2020-09-01] MEDS: CEFEPIME 2,000 MG in SYRINGE 0 ML IV SCH (20:49)
[2020-09-01] MEDS: ASPIRIN 81 MG ECTAB PO SCH (20:50)
[2020-09-01] MEDS: ROSUVASTATIN CALCIUM 5 MG TAB PO SCH (20:50)
[2020-09-01] MEDS: EZETIMIBE 10 MG TABLET PO SCH (20:51)
[2020-09-02] MEDS: hydrALAZINE HCL 25 MG TAB PO SCH ×2 (00:49→06:21)
[2020-09-02] MEDS: traMADol HCL 50 MG TABLET PO PRN ×2 (02:33→12:01)
[2020-09-02 06:13] LABS: Basophils # (auto) 0.02 K/uL (0-0.2); Basophils % (auto) 0.2 %; Eosinophils # (auto) 0.24 K/uL (0-0.5); Eosinophils % (auto) 2.5 %; Hematocrit (blood only) 28.8 % (37-47); Hemoglobin 9.2 g/dL (12.0-16.0); Immature Granulocytes # (auto) 0.01 K/uL (0.00-0.02); Immature Granulocytes % (auto) 0.1 %; Lymphocytes # (auto) 2.23 K/uL (1.2-3.4); Lymphocytes % (auto) 23.3 %; Mean Corpuscular Hgb Conc 31.9 g/dL (32-36); Mean Corpuscular Volume 87.5 fL (80-100); Mean Platelet Volume 9.6 fL (7.4-10.4); Monocytes # (auto) 1.15 K/uL (0.11-0.59); Neutrophils # (auto) 5.94 K/uL (1.4-6.5); Neutrophils % (auto) 61.9 %; Platelet Count 312 K/uL (130-400); RDW Coefficient of Variation 19.8 % (11.5-14.5); RDW Standard Deviation 62.9 fL (36.4-46.3); Red Blood Count 3.29 M/uL (4.2-5.4); White Blood Count 9.59 K/uL (4.8-10.8)
[2020-09-02] MEDS: SODIUM CHLORIDE 0.9% 1000ML 1,000 ML IV SCH (06:21)
[2020-09-02 06:51] LABS: Albumin Level 2.1 gm/dl (3.4-5.0); BUN Creatinine Ratio 24.4 (10-20); Calcium 8.4 mg/dl (8.5-10.1); Creatinine Clr Calc Pharmacy 36.1 ml/min; Potassium 3.8 mmol/L (3.5-5.1)
[2020-09-02 06:54] LABS: Albumin Globulin Ratio 0.6 (0.9-2); Bilirubin,Total 0.9 mg/dl (0.2-1); Globulin 3.3 gm/dl (2.5-4.0); Total Protein 5.4 gm/dl (6.4-8.2)
[2020-09-02] MEDS: AMIODARONE 200 MG TAB PO SCH (08:36)
--- NOTE | 2020-09-02 08:36 | Discharge Summary ---
Date of Service September 02, 2020 Admission HPI Per Admitting Provider History obtained from patient, family, and records. Patient is a reliable historian. Medical history significant for CAD as per records, TIA as per records, A. fib on Eliquis, hypertension, hyperlipidemia, chronic anemia (baseline hemoglobin of 10), MGUS as per records, mood disorder, ambulatory dysfunction, past tobacco abuse. Recent ER visit 3 weeks ago for for a mechanical fall after tripping over a vacuum gut cleaner hitting her head. Patient noted to have traumatic scalp hematoma, periorbital contusion and subconjunctival hemorrhage right eye. Right humeral fracture noted on x-ray. Orthopedics recommended conservative management with sling and outpatient evaluation.\\\\ Patient discharged to [facility] facility from the ER where patient stayed from August 05 to August 17, 2020. Patient returned home to assisted living facility almost 2 weeks ago. At home, patient having visual hallucinations as per niece. Episode of confusion and generalized weakness. No chest pain, no S OB, no cough symptoms. No abdominal pain, no diarrhea, no dysuria symptoms. Patient had another fall 2 days ago but refused ED evaluation as per niece. Patient brought to the ER for evaluation this afternoon due to safety concerns. Patient much more clear after IV fluid administration at the ER. Medical History as above Surgical History : Ankle surgery, appendectomy, cholecystectomy, pilonidal cyst removal, hysterectomy, throat surgery Family History : Heart disease, dementia, ovarian cancer, prediabetes Personal/Social history : Last tobacco abuse, occasional EtOH intake, retired from office work Admission Exam Per Admitting Provider GENERAL: Comfortable, morbidly obese, pleasant, no respiratory distress SKIN: Pallor, healing ecchymoses on the face and neck, warm HEENT: Pale palpebral conjunctivae, no ptosis, dry buccal mucosa NECK : Supple, short neck, no tenderness CHEST : Decreased breath sounds, no tenderness HEART : RRR, no obvious murmurs ABDOMEN: Some distention, nontender EXTREMITIES : Minimal LE swelling, no LE tenderness, sling over right shoulder NEUROLOGIC : Coherent, no facial asymmetry, gait and stance not assessed Principal Diagnosis (1) Generalized weakness: (2) Confusion: (3) Recurrent falls: (4) Closed fracture of right proximal humerus: (5) Colon polyp: (6) Hematochezia: (7) Barretts esophagus: Discharge Exam See Below Discharge Data Allergies Allergy/AdvReac Type Severity Reaction Status Date / Time albuterol Allergy Severe severe Verified 08/29/20 17:18 tachycardia "heart rate was 252" levofloxacin [From Levaquin] Allergy Intermediate Tachycardia Verified 08/29/20 17:18 tetracycline Allergy Intermediate Hives Verified 08/29/20 17:18 Lsbljfe-Ixc-Brp Reductase Allergy Mild "leg Verified 08/29/20 17:18 Inhibitor cramps" with Lipitor sulfamethoxazole AdvReac Mild nausea/vomi Verified 08/29/20 17:18 [From Bactrim] ting trimethoprim [From Bactrim] AdvReac Mild nausea/vomi Verified 08/29/20 17:18 ting Consultations 08/29/20 19:32 ED Decision to Admit Stat Ordered Studies 08/29/20 16:04 CT abd pelvis wo con Stat CT head/brain wo con Stat 08/30/20 16:27 MR brain wo con Routine Current Diagnoses Higginbotham's esophagus without dysplasia (08/29/20) Polyp of colon (08/29/20) Melena (08/29/20) Repeated falls (08/29/20) Disorientation, unspecified (08/29/20) Weakness (08/29/20) Unspecified fracture of upper end of right humerus, initial encounter for closed fracture (08/29/20) Allergies albuterol Allergy (Severe, Verified 08/29/20 17:18) severe tachycardia "heart rate was 252" levofloxacin [From Levaquin] Allergy (Intermediate, Verified 08/29/20 17:18) Tachycardia tetracycline Allergy (Intermediate, Verified 08/29/20 17:18) Hives Mujkseg-Zuk-Xqn Reductase Inhibitor Allergy (Mild, Verified 08/29/20 17:18) "leg cramps" with Lipitor sulfamethoxazole [From Bactrim] Adverse Reaction (Mild, Verified 08/29/20 17:18) nausea/vomiting trimethoprim [From Bactrim] Adverse Reaction (Mild, Verified 08/29/20 17:18) nausea/vomiting Height/Weight/Isolation Height 5 ft 2 in Weight 101.1 kg Chemistry 08/31/20 09/01/20 09/02/20 07:23 07:24 05:56 Sodium 138 139 138 Potassium 4.2 4.0 3.8 Chloride 104 108 H 109 H Carbon Dioxide 28 26 24 Anion Gap 6.0 5.0 5.0 BUN 26 H 26 H 32 H Creatinine 1.14 1.12 1.29 H Glucose 90 77 87 Microbiology 08/31/20 15:00 Blood Aerobic Blood Culture - Preliminary No growth in Aerobic bottle after 24 hours. 08/31/20 15:00 Blood Anaerobic Blood Culture - Preliminary No growth in Anaerobic bottle after 24 hours. 08/31/20 15:00 Blood Aerobic Blood Culture - Preliminary No growth in Aerobic bottle after 24 hours. 08/31/20 15:00 Blood Anaerobic Blood Culture - Preliminary No growth in Anaerobic bottle after 24 hours. 08/29/20 16:47 Blood Aerobic Blood Culture - Preliminary No growth in Aerobic bottle after 48 hours. 08/29/20 16:47 Blood Anaerobic Blood Culture - Preliminary No growth in Anaerobic bottle after 48 hours. 08/29/20 16:47 Blood Aerobic Blood Culture - Preliminary No growth in Aerobic bottle after 48 hours. 08/29/20 16:47 Blood Anaerobic Blood Culture - Preliminary No growth in Anaerobic bottle after 48 hours. Hospital Course (1) Generalized weakness: (2) Confusion: (3) Recurrent falls: safety concerns at patient's current assisted living facility residence given ambulatory dysfunction. Recent traumatic right shoulder fracture, conservative management recommended by Orthopedics as per patient hx CAD as per records TIA as per records A. fib on Eliquis, patient NSR hypertension, slightly elevated hyperlipidemia on statin Rx chronic anemia, hemoglobin at baseline mood disorder, at baseline past tobacco abuse PT/OT Social service RE discharge planning/placement Facilitate home BP meds, may need dose titration DVT prophylaxis with Eliquis DNR Ms. Jaquelin Armendariz, contact #[phone]. Cardizem 180 mg CD, DC to SNF today, Doxy and Cefdinir ROS-No Headache, No Visual Changes, No Nausea, No Vomiting, No Fever, No Chills, No Neck Pain or Stiffness, No Chest Pain, No Palpitations, No SOB, No PLAZA, No Cough, No Sputum, No Wheezing, No Abdominal Pain, No Diarrhea, No Hematemesis, No Hemoptysis, No Unexpected Weight Loss, No Flank pain, No Melena, No Hematochezia, No Frequency, No Urgency, No Burning, No Hematuria, No Rashes, No Diaphoresis. Appetite is Normal Physical Exam Gen-AAO x 3, NAD, Afebrile Head-Facial Bruising from falls, EOMI, PERRLA, Anicteric Sclera, No Posterior Pharyngeal Erythema Neck-Supple, No JVD, No Thyromegaly, No Masses, No LAD, No Bruits Lungs-Clear to Auscultation Bilaterally, No Rales, No Rhonchi, No Wheezing, No Crepitus Chest-No S4, +S1, +S2, No S3, No Murmurs, No Rubs, No Gallops, No Ectopy Abdomen-Soft, Bowel Sounds Present, Non Tender, Non Distended, No Hepatomegaly, No Splenomegaly, No Palpable Masses, No Rebound, No Rigidity, No Guarding Musculoskeletal-Full Range of Motion Bilaterally, No CVAT Extremities-No Cyanosis, No Clubbing, No Edema Nuero-Cranial Nerves II-XII grossly intact, Motor WNL, DTRs WNL, Strength WNL, Non Focal Psych-Normal Mood (4) Closed fracture of right proximal humerus: (5) Colon polyp: (6) Hematochezia: (7) Barretts esophagus: (1) Recurrent falls: safety concerns at patient's current assisted living facility residence given ambulatory dysfunction. Recent traumatic right shoulder fracture-conservative management recommended by Orthopedics as per patient CAD as per records TIA as per records A. fib on Eliquis, patient NSR hypertension, slightly elevated hyperlipidemia on statin Rx chronic anemia, hemoglobin at baseline mood disorder, at baseline past tobacco abuse Leukocytosis and Fever-Abx started, Cefepime and Vanco, WBCs down today PT/OT Social service RE discharge planning/placement Facilitate home BP meds, may need dose titration DVT prophylaxis with Eliquis DNR Ms. Jaquelin Armendariz, contact #[phone]. DCd norvasc, Increased BBlocker to BID, Increse Cardizem to 60 TID and Monitor ROS-No Headache, No Visual Changes, No Nausea, No Vomiting, No Fever, No Chills, No Neck Pain or Stiffness, No Chest Pain, No Palpitations, No SOB, No PLAZA, No Cough, No Sputum, No Wheezing, No Abdominal Pain, No Diarrhea, No Hematemesis, No Hemoptysis, No Unexpected Weight Loss, No Flank pain, No Melena, No Hematochezia, No Frequency, No Urgency, No Burning, No Hematuria, No Rashes, No Diaphoresis. Appetite is Normal Physical Exam Gen-AAO x 3, NAD, Afebrile Head-Facial Bruising from falls, EOMI, PERRLA, Anicteric Sclera, No Posterior Pharyngeal Erythema Neck-Supple, No JVD, No Thyromegaly, No Masses, No LAD, No Bruits Lungs-Clear to Auscultation Bilaterally, No Rales, No Rhonchi, No Wheezing, No Crepitus Chest-No S4, +S1, +S2, No S3, No Murmurs, No Rubs, No Gallops, No Ectopy Abdomen-Soft, Bowel Sounds Present, Non Tender, Non Distended, No Hepatomegaly, No Splenomegaly, No Palpable Masses, No Rebound, No Rigidity, No Guarding Musculoskeletal-Full Range of Motion Bilaterally, No CVAT Extremities-No Cyanosis, No Clubbing, No Edema Nuero-Cranial Nerves II-XII grossly intact, Motor WNL, DTRs WNL, Strength WNL, Non Focal Psych-Normal Mood Total Time Total Time Spent Total Time Spent (In Minutes): 45 mins Total Time Includes: Examination of the Patient, Discharge Planning, Medication Reconciliation and Communication With Other Providers Discharge Plan Discharge Items Patient Disposition: Transfer [facility] Reason For Visit: TRANSIENT CONFUSION, RECURRENT FALLS Discharge Diagnosis: (1) Generalized weakness: (2) Confusion: (3) Recurrent falls: (4) Closed fracture of right proximal humerus: (5) Colon polyp: (6) Hematochezia: (7) Barretts esophagus: Condition on Discharge: Good Activity: Resume your previous activity Lifting: Gradually increase as tolerated Bathing: No limitations Exercise/Sports: Gradually increase as tolerated Driving/Machine Use: None Weightbearing: Full weightbearing Weightbearing Comment: RUE in Sling Non-emergency contact: Primary Care Provider and Specialist Call non-emergency contact if: you have any medication questions Follow-up/Referrals: Vibha Quiñones MD [Primary Care Provider] - Walker Burris DO [Physician] - (2-3 weeks) Diet: Heart Healthy Addtl Attending Provider Instructions: Follow Ortho instructions Pending Studies at Discharge: No Stand-Alone Forms: My [employer] Skilled Items Patient informed of condition?: Yes DNR: Yes Discharge Level of Care: Skilled Communicable Disease: No Discharge Prognosis: Improving Lines: None Urinary Catheter: No Medications and DC Order Prescriptions: New acetaminophen 325 mg Tablet 325 mg PO Q6H PRN (Reason: fever or pain) Qty: 30 RF: 0 tramadol 50 mg Tablet 25 - 50 mg PO Q4H PRN (Reason: pain) Qty: 30 RF: 0 cefdinir 300 mg capsule 300 mg PO Q12H 5 Days Qty: 10 RF: 0 doxycycline monohydrate 100 mg capsule 100 mg PO BID 7 Days Qty: 14 RF: 0 diltiazem HCl [Cardizem CD] 180 mg capsule,extended release 24hr 180 mg PO DAILY Qty: 30 RF: 0 Continued nitroglycerin [Nitrostat] 0.4 mg Tablet, Sublingual 0.4 mg sublingual UD PRN (Reason: Chest Pain) RF: 0 amiodarone 200 mg Tablet 200 mg PO BID RF: 0 metoprolol succinate 50 mg Tablet Extended Release 24 Hr 25 mg PO QAM RF: 0 nitroglycerin 0.2 mg/hr Patch 24 Hour 1 patch TRANSDERMAL QAM RF: 0 aspirin 81 mg Tablet,Delayed Release (Dr/Ec) 81 mg PO HS RF: 0 esomeprazole magnesium 40 mg Capsule,Delayed Release(Dr/Ec) 40 mg PO QAM RF: 0 folic acid 1 mg Tablet 1 mg PO QAM RF: 0 sertraline 50 mg Tablet 75 mg PO QAM RF: 0 olmesartan 40 mg Tablet 40 mg PO QAM RF: 0 ezetimibe 10 mg Tablet 10 mg PO HS RF: 0 rosuvastatin [Crestor] 5 mg Tablet 5 mg PO HS RF: 0 Eliquis 5 mg Tablet 2.5 mg PO BID RF: 0 Discontinued tramadol 50 mg tablet 50 mg PO Q8H PRN (Reason: pain) Qty: 30 RF: 0 hydroxyzine HCl 10 mg Tablet 10 mg PO Q6 PRN (Reason: Anxiety) RF: 0 amlodipine 5 mg tablet 5 mg PO QAM RF: 0 Discharge Orders: Discharge Order (Routine); Ordered 09/02/20 Ordered By: Kevin Ojeda Admission Data Admit Date/Time: 08/29/20 20:56 Attending Provider: Kevin Ojeda Admit Provider: Michael Dorman Primary Care Provider: Vibha Quiñones Other Providers: Michael Dorman
[2020-09-02] MEDS: OLMESARTAN MEDOXOMIL 40 MG TAB PO SCH (08:37)
[2020-09-02] MEDS: CEFEPIME 2,000 MG in SYRINGE 0 ML IV SCH (08:38)
[2020-09-02] MEDS: METOPROLOL SUCC 25MG EXT REL TAB PO SCH (08:38)
[2020-09-02] MEDS: PANTOprazole 40 MG TAB PO SCH (08:39)
[2020-09-02] MEDS: dilTIAZem HCl 60 MG TAB PO SCH (08:40)
[2020-09-02] MEDS: FOLIC ACID 1 MG TAB PO SCH (08:41)
[2020-09-02] MEDS: SERTRALINE HCL 50 MG TABLET PO SCH (08:42)
[2020-09-02] MEDS: APIXABAN 2.5 MG TAB PO SCH (08:43)
== END 2020-09-02 12:27 | DRG 92 ==
LOC: ED 15:18 → SUATTDRO 20:56 → 2N 20:56 → 3N 08-31 00:43

== ENCOUNTER 2020-10-10 20:31 | Inpatient (IN) ==
[2020-10-10] MEDS ORDERED: ONDANSETRON INJ 2 MG/ML 2 ML VIAL IV STA (20:48)
--- NOTE | 2020-10-10 20:53 | Emergency Department Note ---
History of Present Illness General Chief complaint: Shortness of Breath/Dyspnea Stated complaint: HYPOXIA Time Seen by Provider: 10/10/20 20:42 Source: patient Mode of arrival: EMS Limitations: no limitations History of Present Illness Provider complaint: Low pulse ox This is an 85-year-old female who presents to the ED with a chief complaint, per the notes from home where she resides of a low pulse oximeter. The patient's pulse oximeter was reading in the mid 80s according to the nursing staff who received the patient from paramedics. EMS found the patient to have normal pulse oximetry. The patient denies any specific complaints. She states that her breathing feels fine. She has recently recovered from pneumonia and is finished her course of antibiotics. The patient has had recent vaccinations for Covid as well. The patient denies any chest pains or shortness of breath at this time. She does report generalized weakness. Home Medications Medication Instructions Recorded Confirmed Type Eliquis 2.5 mg PO BID 04/05/19 08/29/20 History amiodarone 200 mg PO BID 04/05/19 08/29/20 History aspirin 81 mg PO HS 04/05/19 08/29/20 History esomeprazole magnesium 40 mg PO QAM 04/05/19 08/29/20 History ezetimibe 10 mg PO HS 04/05/19 08/29/20 History folic acid 1 mg PO QAM 04/05/19 08/29/20 History metoprolol succinate 25 mg PO QAM 04/05/19 08/29/20 History nitroglycerin 1 patch TRANSDERMAL QAM 04/05/19 08/29/20 History olmesartan 40 mg PO QAM 04/05/19 08/29/20 History rosuvastatin [Crestor] 5 mg PO HS 04/05/19 08/29/20 History sertraline 75 mg PO QAM 04/05/19 08/29/20 History nitroglycerin [Nitrostat] 0.4 mg SUBLINGUAL UD PRN 07/12/19 08/29/20 History acetaminophen 325 mg PO Q6H PRN #30 tab 09/02/20 Rx diltiazem HCl [Cardizem CD] 180 mg PO DAILY #30 cap 09/02/20 Rx tramadol 25 - 50 mg PO Q4H PRN #30 tab 09/02/20 Rx Allergies Allergy/AdvReac Type Severity Reaction Status Date / Time albuterol Allergy Severe severe Verified 08/29/20 17:18 tachycardia "heart rate was 252" levofloxacin [From Levaquin] Allergy Intermediate Tachycardia Verified 08/29/20 17:18 tetracycline Allergy Intermediate Hives Verified 08/29/20 17:18 Sisytek-Irx-Hxc Reductase Allergy Mild "leg Verified 08/29/20 17:18 Inhibitor cramps" with Lipitor sulfamethoxazole AdvReac Mild nausea/vomi Verified 08/29/20 17:18 [From Bactrim] ting trimethoprim [From Bactrim] AdvReac Mild nausea/vomi Verified 08/29/20 17:18 ting Past Med/Surg History Medical History (Updated 10/10/20 @ 21:44 by Tam Cooper DO) Anemia Atrial fibrillation on eliquis daily and follows with Dr. Trenton Escalante esophagus Basal cell carcinoma of skin of left breast removed in office Chronic kidney disease, stage 3 Depression GERD (gastroesophageal reflux disease) Gout Hiatal hernia Hyperlipidemia Hypertension Kidney stones On anticoagulant therapy eliquis daily Sleep apnea cpap Stroke 10/2017--no deficits, follows with Dr. Lozano in [place] Surgical History History of bilateral cataract extraction History of cardiac cath x5--last was 2015 History of cardioversion 08/2018 @ [facility] History of cholecystectomy History of colonoscopy with polypectomy History of dilatation and curettage x4 History of esophagogastroduodenoscopy (EGD) History of heart artery stent 2004? 1 stent at [facility] History of left breast biopsy benign History of open reduction and internal fixation (ORIF) procedure left ankle--hardware in place History of right breast biopsy benign History of surgery benign tumor removal of left leg History of tonsillectomy History of tooth extraction some upper/lower teeth History of total hysterectomy with bilateral salpingo-oophorectomy (BSO) Family History Father Family history of diabetes mellitus Other No family history of adverse response to anesthesia Social History Smoking Status: Former smoker Second Hand Exposure: Yes (father smoked); Hx Alcohol Use: No Hx Substance Use: No Preferred Language: Comoran Communication Ability: Effective 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 Beliefs That Will Affect Care: None Current Living Situation: Personal Care Facility Feels Safe at Home: Yes Assistive Devices: Denture - Upper Review of Systems A total of 10 systems reviewed and were otherwise negative Physical Exam Vital Signs Vital Signs - 24 hr 10/10/20 20:35 10/10/20 20:54 Temperature 36.6 C Temperature Source Oral Pulse Rate 59 L Respiratory Rate 18 Respiratory Effort / Characteristics Non-Labored Respiratory Depth Normal Blood Pressure 138/60 Blood Pressure Mean 86 Blood Pressure Position Lying Pulse Oximetry 100 Oxygen Delivery Method Room Air Room Air Sepsis Recent Fever Within 48 Hours No Sepsis New/Unexplained Change in Mental Status No Sepsis Action Taken by Nursing No Action Required CONSTITUTIONAL/VITAL SIGNS: Reviewed / noted above. GENERAL: Non-toxic in appearance. INTEGUMENTARY: Warm, dry, and [place]. HEAD: Normocephalic. EYES: without scleral icterus or trauma. ENT/OROPHARYNX: clear and moist. LYMPHADENOPATHY/NECK: Is supple without lymphadenopathy or meningismus. RESPIRATORY: Lungs clear and equal. CARDIOVASCULAR: Regular rate and rhythm. GI/ABDOMEN: Soft and nontender. No organomegaly or pulsatile mass. No rebound or guarding. Normal bowel sounds. EXTREMITIES: Warm and well perfused. BACK: No CVA tenderness. NEUROLOGICAL: Intact without focal deficits. PSYCHIATRIC: normal affect. MUSCULOSKELETAL: Normally developed with good muscle tone. TRIAGE NURSING DOCUMENTATION REVIEWED. Course Administered Medications Sodium Chloride (Nss 1000ml) 1,000 mls @ 999 mls/hr IV .Q1H1M ONE Stop: 10/10/20 22:34 Last Admin: 10/10/20 21:37 Dose: 999 mls/hr Documented by: [id number] Discontinued Medications Ondansetron HCl (Ondansetron Inj 2 Mg/Ml 2 Ml Vial) 4 mg IV NOW STA Stop: 10/10/20 20:49 Last Admin: 10/10/20 20:59 Dose: 4 mg Documented by: [id number] Medical Decision Making Differential Diagnosis Differential includes acute coronary syndrome, myocardial infarction, CVA, TIA, anemia, infection, pneumonia, UTI, pyelonephritis, poor nutrition, dehydration, electrolyte disturbance,hypoglycemia. Medical Records Attestation: I reviewed the patient's medical records. Home Medications Current Medication List: was personally reviewed by me Laboratory Data Attestation: I reviewed the patient's lab results. Result diagrams: 10/10/20 20:48 10/10/20 20:48 Lab Results 10/10/20 10/10/20 Range/Units 20:48 20:48 WBC 16.03 H (4.8-10.8) K/uL RBC 3.76 L (4.2-5.4) M/uL Hgb 10.7 L (12.0-16.0) g/dL Hct 33.7 L (37-47) % MCV 89.6 (80-100) fL MCH 28.5 (25-34) pg MCHC 31.8 L (32-36) g/dL RDW Std Deviation 61.8 H (36.4-46.3) fL RDW Coeff of Mary Kate 19.0 H (11.5-14.5) % Plt Count 350 (130-400) K/uL MPV 10.6 H (7.4-10.4) fL Immature Gran % (Auto) 0.2 % Neut % (Auto) 63.7 % Lymph % (Auto) 29.0 % [place] % (Auto) 5.5 % Eos % (Auto) 1.4 % Baso % (Auto) 0.2 % Neut # (Auto) 10.20 H (1.4-6.5) K/uL Lymph # (Auto) 4.65 H (1.2-3.4) K/uL [place] # (Auto) 0.88 H (0.11-0.59) K/uL Eos # (Auto) 0.23 (0-0.5) K/uL Baso # (Auto) 0.04 (0-0.2) K/uL Immature Gran # (Auto) 0.03 H (0.00-0.02) K/uL Sodium 139 (136-145) mmol/L Potassium 5.1 (3.5-5.1) mmol/L Chloride 106 (98-107) mmol/L Carbon Dioxide 24 (21-32) mmol/L Anion Gap 10.0 (3-11) BUN 63 H (7-18) mg/dl Creatinine 3.51 H (0.6-1.2) mg/dl Est Cr Clr Drug Dosing 14.2 ml/min Est GFR ( Amer) 13.1 Est GFR (Non-Af Amer) 11.3 BUN/Creatinine Ratio 17.9 (10-20) Glucose 96 (70-99) mg/dl Calcium 9.5 (8.5-10.1) mg/dl MDM Narrative Patient presents and was sent from a local intermediate because they found her pulse ox to be in the mid 80s. Here they are in the mid 90s to 100% on room air. She is in no respiratory distress. Only complains of some weakness. The patient's white blood cell count is 16. Chemistry panel reveals a BUN of 63 and a creatinine of 3.51. This is higher than her baseline of 1.3. Chest x-ray reveals a questionable right lower lobe infiltrate although clinically the patient does not have any cough or complaint with regards to pneumonia. This could explain the white blood cell count. Urinary tract infection would be a possibility as well. Will await urinalysis. The patient was given IV fluids and IV Zofran during her ED stay. She will be seen by the hospitalist for further inpatient evaluation and care. Impression & Plan Acute renal failure, Generalized weakness, Acute dehydration Discharge Plan Visit Data Chief Complaint: Shortness of Breath/Dyspnea Stated Complaint: HYPOXIA ED Provider: Tam Cooper Discharge Problem: Acute renal failure, Generalized weakness, Acute dehydration Patient Disposition: Being Evaluated by Hospitalist Forms Stand Alone Forms: [facility] Prescriptions Prescriptions: No Action nitroglycerin [Nitrostat] 0.4 mg Tablet, Sublingual 0.4 mg sublingual UD PRN (Reason: Chest Pain) RF: 0 amiodarone 200 mg Tablet 200 mg PO BID RF: 0 metoprolol succinate 50 mg Tablet Extended Release 24 Hr 25 mg PO QAM RF: 0 nitroglycerin 0.2 mg/hr Patch 24 Hour 1 patch TRANSDERMAL QAM RF: 0 aspirin 81 mg Tablet,Delayed Release (Dr/Ec) 81 mg PO HS RF: 0 esomeprazole magnesium 40 mg Capsule,Delayed Release(Dr/Ec) 40 mg PO QAM RF: 0 folic acid 1 mg Tablet 1 mg PO QAM RF: 0 sertraline 50 mg Tablet 75 mg PO QAM RF: 0 olmesartan 40 mg Tablet 40 mg PO QAM RF: 0 ezetimibe 10 mg Tablet 10 mg PO HS RF: 0 rosuvastatin [Crestor] 5 mg Tablet 5 mg PO HS RF: 0 Eliquis 5 mg Tablet 2.5 mg PO BID RF: 0 acetaminophen 325 mg Tablet 325 mg PO Q6H PRN (Reason: fever or pain) Qty: 30 RF: 0 tramadol 50 mg Tablet 25 - 50 mg PO Q4H PRN (Reason: pain) Qty: 30 RF: 0 diltiazem HCl [Cardizem CD] 180 mg capsule,extended release 24hr 180 mg PO DAILY Qty: 30 RF: 0 Referrals Referrals: Vibha Quiñones MD [Primary Care Provider] - Discharge Problem: Acute renal failure Qualifiers: Acute renal failure type: unspecified Qualified Code(s): N17.9 - Acute kidney failure, unspecified
[2020-10-10 21:11] LABS: Basophils # (auto) 0.04 K/uL (0-0.2); Basophils % (auto) 0.2 %; Eosinophils # (auto) 0.23 K/uL (0-0.5); Eosinophils % (auto) 1.4 %; Hematocrit (blood only) 33.7 % (37-47); Hemoglobin 10.7 g/dL (12.0-16.0); Immature Granulocytes # (auto) 0.03 K/uL (0.00-0.02); Immature Granulocytes % (auto) 0.2 %; Lymphocytes # (auto) 4.65 K/uL (1.2-3.4); Mean Corpuscular Hemoglobin 28.5 pg (25-34); Mean Corpuscular Hgb Conc 31.8 g/dL (32-36); Mean Corpuscular Volume 89.6 fL (80-100); Mean Platelet Volume 10.6 fL (7.4-10.4); Monocytes # (auto) 0.88 K/uL (0.11-0.59); Monocytes % (auto) 5.5 %; Neutrophils % (auto) 63.7 %; Platelet Count 350 K/uL (130-400); RDW Standard Deviation 61.8 fL (36.4-46.3); Red Blood Count 3.76 M/uL (4.2-5.4); White Blood Count 16.03 K/uL (4.8-10.8)
[2020-10-10 21:29] LABS: BUN Creatinine Ratio 17.9 (10-20); Calcium 9.5 mg/dl (8.5-10.1); Creatinine Clr Calc Pharmacy 14.2 ml/min; Est GFR (African American) 13.1; Est GFR (Non-African American) 11.3; Potassium 5.1 mmol/L (3.5-5.1)
[2020-10-10] MEDS ORDERED: SODIUM CHLORIDE 0.9% 1000ML 1,000 ML IV ONE (21:34)
[2020-10-10] MEDS ORDERED: CEFEPIME 2,000 MG/20 ML VIAL IV STA (21:57)
[2020-10-10 23:01] LABS: Influenza A virus by PCR Negative (Neg); Influenza B virus by PCR Negative (Neg); RSV by PCR Negative (Neg); SARS CoV2 RNA(COVID-19) InHosp NEGATIVE (Negative)
[2020-10-11] MEDS ORDERED: LINEZOLID CONSULT ACTIVE PRN (02:03)
[2020-10-11] MEDS ORDERED: PIPERACILLIN/TAZOBACTAM 3.375 GM in DEXTROSE 5% 100 ML IV SCH (02:03)
[2020-10-11] MEDS ORDERED: ONDANSETRON INJ 2 MG/ML 2 ML VIAL IV PRN (02:03)
[2020-10-11] MEDS ORDERED: ACETAMINOPHEN 325 MG TAB PO PRN (02:03)
[2020-10-11] MEDS ORDERED: PIPERACILL/TAZOBAC CONSULT ACTIVE PRN (02:03)
[2020-10-11] MEDS ORDERED: LINEZOLID 600 MG/300 ML D5W IV SCH (02:03)
[2020-10-11] MEDS ORDERED: PIPERACILLIN/TAZOBACTAM 4.5 GM in DEXTROSE 5% 100 ML IV ONE (02:15)
[2020-10-11] MEDS: SODIUM CHLORIDE 0.9% 1000ML 1,000 ML IV SCH ×2 (02:39→18:21)
--- NOTE | 2020-10-11 03:43 | History and Physical Report ---
DATE OF ADMISSION: 10/10/2020 CHIEF COMPLAINT: Weakness and cough. 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 The patient was in the hospital in August with pneumonia, treated with antibiotics, discharged on cefdinir and doxycycline. In September, as per the case management report in [facility], from 10/04/2020 to 10/08/2020, she was in [facility], treated for cellulitis of bilateral lower extremities, chronic renal insufficiency and she was discharged currently to [facility]. The patient says she is requiring two people to assist with ambulation and since last 2 days she has poor appetite, not eating or drinking much and she has dry cough. Denies any fever, chills. As per the halfway, she was saturating mid 85% today but when EMS arrived, she was saturating fine. In the ER, she is saturating 100% on room air. Currently resting comfortably. She also complains of chronic abdominal pain. She is having diarrhea. Denies any blood in stools or black stools. Sometimes she sees blood in the stool from her hemorrhoids. Currently she says she is urinating okay. Denies any hematuria. Denies any burning micturition. Her lower extremity cellulitis is much improved as per the patient. Denies any headache, no blurred visions, no earache. She has chronic runny nose. She has some sore tongue. She says she swallows okay. Denies any chest pain. Currently no shortness of breath. She has dry heaves. She has chronic abdominal pain from hiatal hernia. No flank pains. Currently resting comfortably and hemodynamically stable. ALLERGIES: ALBUTEROL, LEVAQUIN, TETRACYCLINE, STATINS, BACTRIM. PAST MEDICAL HISTORY: As mentioned above. PAST SURGICAL HISTORY: Ankle arthroscopy, appendectomy, colonoscopy, EGDs, laparoscopic cholecystectomy, removal of pilonidal cyst, throat surgery, total hysterectomy. MEDICATIONS: The patient is on Tylenol 650 mg p.o. q. 6 hours p.r.n., amiodarone 200 mg p.o. a.m., Eliquis 2.5 mg p.o. b.i.d., Cardizem CD 180 mg p.o. a.m., esomeprazole 40 mg p.o. daily, ezetimibe 10 mg p.o. at bedtime, Lasix 40 mg p.o. a.m., levothyroxine 50 mcg p.o. daily, Zyvox 600 mg p.o. b.i.d., metoprolol succinate 25 mg p.o. a.m., nystatin 1 topical b.i.d., MiraLax 17 grams p.o. a.m., Crestor 5 mg p.o. at bedtime, sertraline 75 mg p.o. a.m., tramadol 50 mg p.o. q. 4 hours p.r.n. FAMILY HISTORY: Significant for mother has dementia, hypertension, recurrent uterine fibroids; father has prediabetes, heart attack; sister has heart disorder, hypertension, thyroid disorder. SOCIAL HISTORY: , currently living at [facility]. Former smoker, quit in June 1971, smoked half pack a day for 5 years. Alcohol occasional. No drug use. REVIEW OF SYSTEMS: As per HPI. Rest of review of systems negative. PHYSICAL EXAMINATION: GENERAL: The patient is morbidly obese, not in acute distress. VITAL SIGNS: Temperature 36.6, pulse 57, respiratory rate 17, blood pressure 138/60, oxygen 100% on room air. HEENT: Pupils equal, round, and reactive to light. Oral mucosa, reddish tongue. NECK: No JVD, no neck masses seen. CARDIOVASCULAR: S1, S2 heard, regular rate and rhythm, no murmur, no gallop. RESPIRATORY SYSTEM: Normal AP diameter. No accessory muscle use. No wheezing, no crackles. ABDOMEN: Soft, bowel sounds present. No distention. CENTRAL NERVOUS SYSTEM: Cranial nerves II-XII grossly intact, nonfocal. EXTREMITIES: Bilateral lower extremity edema present with mild erythematous changes seen. LABORATORY DATA: WBC 16, hemoglobin 10.7, hematocrit 33.7, platelets 350. Sodium 139, potassium 5.1, chloride 106, bicarb 24, BUN 63, creatinine 3.5, serum glucose 96. Lactate 4.5, calcium 9.4. SARS-CoV-2 PCR negative. Influenza A and B PCR negative, RSV PCR negative. IMAGING DATA: Chest x-ray, possible right lower lobe pneumonia. EKG: Sinus bradycardia,at a rate of 59, nonspecific T-wave abnormalities. No acute ST changes seen. ASSESSMENT AND PLAN: This is an 85-year-old female who presents with ongoing illness. 1. Sepsis: Source could be pneumonia, cellulitis, with elevated lactate of 4.5, white count of 16, otherwise blood pressure is okay, afebrile currently, saturating okay. Because of allergies, empirically started on Zosyn and Zyvox. Follow the cultures. IV fluids, normal saline at 100 mL per hour. Follow the repeat lactic acid. Closely monitor in tele floor. Follow the repeat labs. 2. Acute kidney injury on chronic kidney disease stage IV: Baseline creatinine around 1.2, presently with creatinine of 3.5. Last month, she had vancomycin. The patient says she is micturating fine. We will follow the urinalysis. Starting on fluids, holding Lasix. We will monitor the response. Will consult nephrology in a.m. 3. History of Higginbotham's esophagus: Continue Nexium. 4. History of chronic atrial fibrillation: Continue amiodarone, Toprol-XL, diltiazem, and Eliquis. May need to adjust Eliquis per renal dosing. 5. Hypothyroidism: Continue Synthroid. 6. Hypertension: Continue Toprol-XL. Holding diuretics. Continue Cardizem. We will monitor the blood pressure. 7. History of depression/ YOBANY: Hold the sertraline while she is on Zyvox. 8. History of hyperlipidemia: Continue Crestor. 9. History of coronary artery disease: Continue Crestor, metoprolol, and Zetia. 10. Morbid obesity: Needs counseling. 11. Recent lower extremity cellulitis: Mild erythema of lower extremities. Getting antibiotics as above. 12. History of monoclonal gammopathy. 13.. Deep venous thrombosis prophylaxis: On Eliquis. DISPOSITION: Closely monitor in the tele floor. Expect to discharge home and follow with family doctor. Level 1 full code only if there is a chance of recovery. PT and OT prior to discharge. Social service to help with discharge planning. MAT
[2020-10-11] MEDS: LINEZOLID 600 MG/300 ML BAG IV SCH ×2 (04:04→17:00)
[2020-10-11] MEDS: LEVOTHYROXINE SODIUM 50 MCG TABLET PO SCH (06:09)
[2020-10-11 06:18] LABS: Basophils # (auto) 0.03 K/uL (0-0.2); Basophils % (auto) 0.2 %; Eosinophils # (auto) 0.33 K/uL (0-0.5); Eosinophils % (auto) 2.3 %; Hematocrit (blood only) 28.4 % (37-47); Hemoglobin 9.1 g/dL (12.0-16.0); Immature Granulocytes # (auto) 0.02 K/uL (0.00-0.02); Immature Granulocytes % (auto) 0.1 %; Lymphocytes # (auto) 4.71 K/uL (1.2-3.4); Lymphocytes % (auto) 32.8 %; Mean Corpuscular Hemoglobin 28.6 pg (25-34); Mean Corpuscular Volume 89.3 fL (80-100); Mean Platelet Volume 10.3 fL (7.4-10.4); Monocytes # (auto) 0.99 K/uL (0.11-0.59); Monocytes % (auto) 6.9 %; Neutrophils % (auto) 57.7 %; Platelet Count 281 K/uL (130-400); RDW Coefficient of Variation 18.9 % (11.5-14.5); RDW Standard Deviation 61.7 fL (36.4-46.3); Red Blood Count 3.18 M/uL (4.2-5.4); White Blood Count 14.38 K/uL (4.8-10.8)
--- NOTE | 2020-10-11 06:22 | Hospitalist Progress Note ---
Date of Service October 11, 2020 Assessment & Plan Admission and Anticipated Discharge Date Admission Date: October 10, 2020 Subjective Diarrhea. Will follow stool cultures and stool for c diff. Anemia chronic. Will follow labs. Results & Data Results & Data ([facility] [place]) Vital Signs (Past 12 Hours) Vital Signs Temp Pulse Pulse Resp BP BP Pulse Ox 10/11/20 04:00 36.6 C 57 L 18 109/65 98 10/11/20 02:21 36.4 C L 62 16 133/73 99 10/11/20 01:01 58 L 16 123/44 L 98 10/11/20 00:40 59 L 15 98 10/11/20 00:10 60 18 100 10/10/20 23:20 59 L 15 100 10/10/20 23:11 59 L 18 99 10/10/20 23:10 58 L 22 96/45 L 100 10/10/20 21:50 57 L 17 100 10/10/20 21:40 54 L 14 97 10/10/20 21:30 55 L 14 99 10/10/20 21:20 55 L 17 99 10/10/20 21:10 56 L 14 99 10/10/20 21:00 57 L 13 100 10/10/20 20:50 58 L 15 100 10/10/20 20:42 58 L 17 100 10/10/20 20:41 63 16 138/60 10/10/20 20:35 36.6 C 59 L 18 138/60 100
[2020-10-11] MEDS ORDERED: PANTOprazole 40 MG TAB PO SCH (06:30)
[2020-10-11 06:54] LABS: BUN Creatinine Ratio 18.9 (10-20); Calcium 8.1 mg/dl (8.5-10.1); Creatinine Clr Calc Pharmacy 13.5 ml/min; Est GFR (African American) 13.3; Est GFR (Non-African American) 11.5; Magnesium 2.2 mg/dl (1.8-2.4); Potassium 4.5 mmol/L (3.5-5.1)
[2020-10-11] MEDS ORDERED: SODIUM CHLORIDE 0.9% 1000ML 500 ML IV ONE ×2 (07:47→14:10)
[2020-10-11] MEDS: ALBUMIN 25% 12.5 GM/50 ML VIAL IV SCH ×2 (08:13→08:43)
--- NOTE | 2020-10-11 08:45 | XRay Report ---
XR chest 1V portable CLINICAL HISTORY: weakness COMPARISON STUDY: Chest radiograph August 29, 2020. FINDINGS: A displaced proximal right humeral fracture with callus formation is again noted. No pneumo thorax or pleural effusion is present. There may be mild right basilar opacity. Cardiomediastinal phill houette is stable. There is no evidence for pulmonary edema. IMPRESSION: Right basilar opacity which may reflect reflect an infectious process or atelectasis. ACT 112: Negative or not required by law. Electronically signed by: Nikita Doss M.D. 10/11/2020 8:43 AM
[2020-10-11] MEDS ORDERED: dilTIAZem HCL 180 MG CAPCR PO SCH (09:00)
[2020-10-11] MEDS ORDERED: APIXABAN 2.5 MG TAB PO SCH (09:00)
[2020-10-11] MEDS ORDERED: AMIODARONE 200 MG TAB PO SCH (09:00)
[2020-10-11] MEDS ORDERED: METOPROLOL SUCC 25MG EXT REL TAB PO SCH (09:00)
[2020-10-11] MEDS ORDERED: SODIUM CHLORIDE 0.9% 500 ML IV ONE (09:28)
--- NOTE | 2020-10-11 09:30 | Critical Care Consultation ---
Date of Consultation October 11, 2020 Assessment & Plan (1) Sepsis: Chest x-ray 10/10/2020 personally reviewed: Portable film, increased cardiac silhouette, hazy alveolar infiltrate appreciated on the right lower side near the hilum, bilateral costophrenic angles are clean. EKG 10/10/2020:Junctional rhythm, heart rate of 64, T wave flattening on the lateral leads as well as the limb leads. No ST changes. No significant change compared to EKG done 10/10/2020 at 8:30 PM. --Shock likely septic Right lower cellulitis could be one of the possibilities Continue with antibiotics Follow-up septic work-up Follow-up procalcitonin, ESR, CRP --Retrosternal chest pain EKG does not show any ST changes Follow-up troponin Follow-up 2D echo -- HONEY on CKD Follow-up urine lites Monitor BUN/creatinine Avoid nephrotoxic medications Strict ins and outs --History of A. fib On amiodarone, metoprolol as well as diltiazem Hold all medications right now --Hypothyroidism Continue with levothyroxine --KIT Continue with CPAP --DNI --Prophylaxis VTE: Apixaban GI: Protonix Lines: Peripheral Diet: N.p.o. Plan: Patient got 1.5 L, she got 1 more liter while coming to the ICU from the floor. Repeat lactic acid. Patient's blood pressure currently is systolic in the 115. She responded to fluid appropriately. Patient has been on antibiotics for cellulitis. Also complaining of diarrhea for the last 3 days I will get C. difficile toxin Follow-up random cortisol level. Follow-up UA and urine lites. EKG shows junctional rhythm. She had junctional rhythm even on presentation yesterday. I will stop amiodarone, metoprolol as well as diltiazem 5 mg of glucagon as well as 3 g of calcium gluconate to reverse the action of metoprolol and diltiazem respectively Troponin for the chest pain. Cardiology consulted I will get 2D echo as well. Follow-up CT chest abdomen pelvis I have personally spent 63 minutes of critical care time in the direct management of this patient. This is a life/limb threatening event. This includes time spent evaluating patient, direct bedside care, chart review, placing orders, interpretation of diagnostic studies, discussion with consultants, patient, and family members, as well as other required patient management activities. This time is exclusive of all separately billable procedures, and teaching time and separate from and in addition to any other critical care service time. Please note the above document was generated using voice recognition software. It may contain grammatical, syntax or spelling errors. (2) Hypotension: (3) Acute renal failure: (4) Generalized weakness: (5) Chest pain: History of Present Illness Attending Physician: Brock Parnell MD History of Present Illness 85-year-old female past medical history of dyslipidemia, chronic A. fib on apixaban, KIT on CPAP, coronary artery disease, morbid obesity, CKD, monoclonal gammopathy, depression presented to the hospital because of saturation in the 85 and generalized lethargy from the skilled nursing. She was complaining of diarrhea more than 3 times per day watery. She has been on antibiotics for the right lower leg cellulitis. She was transferred to ICU because of hypotensive episode on the floor At the time of examination patient's blood pressure was systolic 150, heart rate was in the 60s, on the EKG showed junctional rhythm. Patient was awake alert oriented x3. She was lethargic. Denies any fever or chills. Denies any dysuria. Denies any shortness of breath. No headache, no blurry vision. No belly pain. Allergies Allergy/AdvReac Type Severity Reaction Status Date / Time albuterol Allergy Severe severe Verified 10/10/20 21:53 tachycardia "heart rate was 252" levofloxacin [From Levaquin] Allergy Intermediate Tachycardia Verified 10/10/20 21:53 tetracycline Allergy Intermediate Hives Verified 10/10/20 21:53 Zmmotgc-Oqd-Xeh Reductase Allergy Mild "leg Verified 10/10/20 21:53 Inhibitor cramps" with Lipitor sulfamethoxazole AdvReac Mild nausea/vomi Verified 10/10/20 21:53 [From Bactrim] ting trimethoprim [From Bactrim] AdvReac Mild nausea/vomi Verified 10/10/20 21:53 ting Home Medications Medication Instructions Recorded Confirmed Type amiodarone 200 mg PO QAM 04/05/19 10/10/20 History esomeprazole magnesium 40 mg PO DAILYBB 04/05/19 10/10/20 History ezetimibe 10 mg PO HS 04/05/19 10/10/20 History metoprolol succinate 25 mg PO QAM 04/05/19 10/10/20 History rosuvastatin [Crestor] 5 mg PO HS 04/05/19 10/10/20 History sertraline 75 mg PO QAM 04/05/19 10/10/20 History acetaminophen 650 mg PO Q6H PRN 10/10/20 10/10/20 History apixaban [Eliquis] 2.5 mg PO BID 10/10/20 10/10/20 History diltiazem HCl [Cardizem CD] 180 mg PO QAM 10/10/20 10/10/20 History furosemide [Lasix] 40 mg PO QAM 10/10/20 10/10/20 History levothyroxine 50 mcg PO DAILYBB 10/10/20 10/10/20 History linezolid 600 mg PO BID 10/10/20 10/10/20 History nystatin 1 applic TOPICAL BID 10/10/20 10/10/20 History polyethylene glycol 3350 [Miralax] 17 g PO QAM 10/10/20 10/10/20 History tramadol 50 mg PO Q4H PRN 10/10/20 10/10/20 History Patient History Medical History Anemia Atrial fibrillation on eliquis daily and follows with Dr. Malathi Escalante esophagus Basal cell carcinoma of skin of left breast removed in office Chronic kidney disease, stage 3 Depression GERD (gastroesophageal reflux disease) Gout Hiatal hernia Hyperlipidemia Hypertension Kidney stones On anticoagulant therapy eliquis daily Sleep apnea cpap Stroke 10/2017--no deficits, follows with Dr. Lozano in [place] Surgical History History of bilateral cataract extraction History of cardiac cath x5--last was 2016 History of cardioversion 08/2018 @ [facility] History of cholecystectomy History of colonoscopy with polypectomy History of dilatation and curettage x4 History of esophagogastroduodenoscopy (EGD) History of heart artery stent 2004? 1 stent at [facility] History of left breast biopsy benign History of open reduction and internal fixation (ORIF) procedure left ankle--hardware in place History of right breast biopsy benign History of surgery benign tumor removal of left leg History of tonsillectomy History of tooth extraction some upper/lower teeth History of total hysterectomy with bilateral salpingo-oophorectomy (BSO) Family History Father Family history of diabetes mellitus Other No family history of adverse response to anesthesia Social History Smoking Status: Never smoker Second Hand Exposure: No; Do You Dip or Chew Tobacco: No; Tobacco Cessation Education Requested by Patient: No Hx Alcohol Use: No Hx Substance Use: No Preferred Language: Faroese Communication Ability: Effective Poultry Hatchery Supervisor Required: No Beliefs That Will Affect Care: None Current Living Situation: Personal Care Facility Other Information That Helps Us Care for You: No Feels Safe at Home: Yes Safety Concerns: Feels Safe At This Time Assistive Devices: Wheelchair Review of Systems Review of Systems: All systems reviewed & are unremarkable except as noted in HPI & below Physical Exam Physical Exam: Constitutional: No acute distress HEENT: EOMI, PERRLA Respiratory system: Good air entry bilaterally, no wheeze, no rhonchi, mild crackles bilateral lower lobe CVS: S1-S2 positive, no murmurs or gallops, bradycardia, distant heart sounds Abdomen: Soft, positive bowel sounds x4, obese, tenderness on the left upper and left lower quadrant, no rebound Extremities: +2 pulses bilaterally radialis/ dorsalis pedis, no cyanosis, +3 p itting edema bilateral lower extremity, on the right Mc-medial esqueda, positive rubor, no calor, no dolor Neuro: Awake alert oriented x3 Psych: Normal mood and affect G/U: No Chinchilla Skin: no rashes, warm and dry Lymphatic: no cervical or axillary lymphadenopathy Results & Data Results & Data ([facility]) Vital Signs (Past 12 Hours) Vital Signs Temp Pulse Pulse Resp BP BP BP 10/11/20 08:58 86/52 L 10/11/20 07:28 36.6 C 56 L 18 88/41 L 10/11/20 04:00 36.6 C 57 L 18 109/65 10/11/20 02:21 36.4 C L 62 16 133/73 10/11/20 01:01 58 L 16 123/44 L 10/11/20 00:40 59 L 15 10/11/20 00:10 60 18 10/10/20 23:20 59 L 15 10/10/20 23:11 59 L 18 10/10/20 23:10 58 L 22 96/45 L 10/10/20 21:50 57 L 17 10/10/20 21:40 54 L 14 Pulse Ox 10/11/20 08:58 10/11/20 07:28 99 10/11/20 04:00 98 10/11/20 02:21 99 10/11/20 01:01 98 10/11/20 00:40 98 10/11/20 00:10 100 10/10/20 23:20 100 10/10/20 23:11 99 10/10/20 23:10 100 10/10/20 21:50 100 10/10/20 21:40 97 10/11/20 10:13 Coding Level of Care Code Critical Care 1st 30-74 mins Diagnoses Sepsis A41.9 Hypotension I95.9 Acute renal failure N17.9 Acute renal failure type: unspecified Generalized weakness R53.1 Chest pain R07.9 Time Spent (min) 63 (1) Acute renal failure Acute renal failure type: unspecified Qualified Code(s): N17.9 - Acute kidney failure, unspecified
--- NOTE | 2020-10-11 10:08 | Hospitalist Progress Note ---
Date of Service October 11, 2020 Assessment & Plan (1) Generalized weakness: (2) Sepsis: (3) Hypotension: (4) Elevated lactic acid level: This is an 85-year-old female who presents with ongoing illness. 1. Sepsis: Source could be pneumonia, cellulitis, with elevated lactate of 4.5 , WBC 16K - blood pressure was acceptable on admission however pt hypotensive now - received IV 500 NS bolus and albumin and persistently in 70-80s/50s - discussed code status with the pt and family (POA Jaquelin Armendariz), ok to pressor support if needed -contacted Dr. bueno, right of way buyer, pt will receive additional IV NS bolus and will be transferred to ICU for further management -afebrile, currently, saturating 90s% on RA. Because of allergies, empirically started on Zosyn and Zyvox. Follow the cultures. IV fluids, normal saline at 100 mL per hour since admission. Repeat lactic acid this AM 4.0 Diarrhea - pt reports having loose stools, concern for poss. C. diff given recent Abx treatments - will obtain stool studies - CT abdomen /pelvis ordered by admitting provider, no done yet Anemia - component of chronic disease in setting of CKD - per PAULETTE Hammer, there was concern of GI bleed at [place], Hgb was 8, Eliquis was held - current Hgb 9-10, will cont. to closely monitor 2. HONEY on CKD stage IV: Baseline creatinine around 1.2, presently with creatinine of 3.5. Cr above 3 last wek per Jaquelin -Last month, she had vancomycin. The patient says she is micturating fine. We will follow the urinalysis. Starting on fluids, holding Lasix. We will monitor the response. Per Jaquelin pt [facility] nephrology in a.m. 3. History of Higginbotham's esophagus: Continue Nexium. 4. History of chronic atrial fibrillation: Continue amiodarone, Toprol-XL, diltiazem, and Eliquis. BP meds not given this AM - further management per ICU May need to adjust Eliquis per renal dosing. Per Jaquelin at [place] concern for GI bleed, Hgb at 8 and eliquis was hold 5. Hypothyroidism: Continue Synthroid. 6. Hypertension: Continue Toprol-XL. Holding diuretics. Continue Cardizem. We will monitor the blood pressure. Due to hypotension - BP meds on hold, further care per ICU 7. History of depression/ YOBANY: Hold the sertraline while she is on Zyvox. 8. History of hyperlipidemia: Continue Crestor. 9. History of coronary artery disease: Continue Crestor, metoprolol, and Zetia. 10. Morbid obesity: Needs counseling. 11. Recent lower extremity cellulitis: Mild erythema of lower extremities. Getting antibiotics as above. 12. History of monoclonal gammopathy. 13.. Deep venous thrombosis prophylaxis: On Eliquis. Discussed CODE STATUS in detail with the patient, patient does not want to be intubated, she is okay with central line and pressor support in ICU. She is not sure about chest compressions and shocks. Talked to Jaquelin, the POA, she says that they did medical directive in March, and at that time patient did not wish for any aggressive measures. However she says that they are okay if patient needs pressor support or any other support, however she also understands that patient would not want to be intubated. Asked about dialysis, per Jaquelin patient did not wish for dialysis, and when asked at the bedside, with nurse present, patient says that she is not interested in dialysis. Admission and Anticipated Discharge Date Admission Date: October 10, 2020 Subjective Patient seen and evaluated in room 240, for sepsis Patient hypotensive in the 80s over 50s, sitting up in bed, does not appear in acute distress however she says that she feels "lousy" She is pale, but appears alert and oriented and answers most questions approp rosibelly Currently denies any dizziness or lightheadedness [facility] and at [facility] time leg cellulitis was treated, now she says that her legs are much better She tells me she was not able to eat for several days, but she does not know why Ordered 500 normal saline bolus, and albumin, and manual check of blood pressure, patient was not hypotensive on admission, however lactic acid was elevated at 4 even after IV fluids Called PAULETTE, Jaquelin Armendariz, who is her niece. She says [facility] were also concerned about possible GI bleed, as she had some dark stools, and th nelsy held Eliquis at that time, hemoglobin reportedly was about 8. She also says that she may or may not have had UTI while she was there. Jaquelin also mentions history of Higginbotham's esophagus, and says that her aunt has had troubles with eating Discussed CODE STATUS in detail with the patient, patient does not want to be intubated, she is okay with central line and pressor support in ICU. She is not sure about chest compressions and shocks. Talk to Jaquelin, the POA, she says that they did medical directive in March, and at that time patient did not wish for any aggressive measures. However she says that they are okay if patient needs pressor support or any other support, however she also understands that patient would not want to be intubated. Ask about dialysis, per Jaquelin patient did not wish for dialysis, and when asked at the bedside, with nurse present, patient says that she is not interested in dialysis. Patient's blood pressure repeated after IV bolus and was in 78 over 50s. Discus sed with Dr. Bueno in ICU, recommends another 1 L bolus and transfer to ICU for further management. Update: After patient lying flat, for another BP check, patient feels more uncomfortable, and has some chest discomfort, will obtain EKG. Also CT abdomen pelvis ordered by admitting physician, not done yet. Review of Systems Review of Systems: All systems reviewed & are unremarkable except as noted in HPI & below Constitutional: no fever and no chills Respiratory: no cough and no dyspnea Gastrointestinal: no abdominal pain Physical Exam Physical Exam: GENERAL: elderly obese F, not in acute distress. HEENT: NC/AT, Pupils equal, round, and reactive to light. Oral mucosa, reddish tongue. NECK: No JVD, no neck masses seen. CARDIOVASCULAR: S1, S2 heard, regular rate and rhythm, no murmur, no gallop. RESPIRATORY: Normal AP diameter. No accessory muscle use. No wheezing, no crackles. ABDOMEN: Soft, obese, bowel sounds present. No distention. NEURO: alert and oriented and answering questions appropriately. Speech fluent, no facial asymmetry, moves extremities. EXTREMITIES: +1 Bilateral lower extremity edema present with mild erythematous changes seen. Results & Data Results & Data ([facility]) Vital Signs (Past 12 Hours) Vital Signs Temp Pulse Pulse Resp BP BP BP 10/11/20 08:58 86/52 L 10/11/20 07:28 36.6 C 56 L 18 88/41 L 10/11/20 04:00 36.6 C 57 L 18 109/65 10/11/20 02:21 36.4 C L 62 16 133/73 10/11/20 01:01 58 L 16 123/44 L 10/11/20 00:40 59 L 15 10/11/20 00:10 60 18 10/10/20 23:20 59 L 15 10/10/20 23:11 59 L 18 10/10/20 23:10 58 L 22 96/45 L 10/10/20 21:50 57 L 17 Pulse Ox 10/11/20 08:58 10/11/20 07:28 99 10/11/20 04:00 98 10/11/20 02:21 99 10/11/20 01:01 98 10/11/20 00:40 98 10/11/20 00:10 100 10/10/20 23:20 100 10/10/20 23:11 99 10/10/20 23:10 100 10/10/20 21:50 100 Laboratory Results 10/11/20 10/11/20 10/11/20 Range/Units 06:03 05:49 05:49 WBC (4.8-10.8) K/uL RBC (4.2-5.4) M/uL Hgb (12.0-16.0) g/dL Hct (37-47) % MCV (80-100) fL MCH (25-34) pg MCHC (32-36) g/dL RDW Std Deviation (36.4-46.3) fL RDW Coeff of Mary Kate (11.5-14.5) % Plt Count (130-400) K/uL MPV (7.4-10.4) fL Immature Gran % (Auto) % Neut % (Auto) % Lymph % (Auto) % [place] % (Auto) % Eos % (Auto) % Baso % (Auto) % Neut # (Auto) (1.4-6.5) K/uL Lymph # (Auto) (1.2-3.4) K/uL [place] # (Auto) (0.11-0.59) K/uL Eos # (Auto) (0-0.5) K/uL Baso # (Auto) (0-0.2) K/uL Immature Gran # (Auto) (0.00-0.02) K/uL Sodium 142 (136-145) mmol/L Potassium 4.5 (3.5-5.1) mmol/L Chloride 109 H (98-107) mmol/L Carbon Dioxide 25 (21-32) mmol/L Anion Gap 8.0 (3-11) BUN 66 H (7-18) mg/dl Creatinine 3.47 H (0.6-1.2) mg/dl Est Cr Clr Drug Dosing 13.5 ml/min Est GFR ( Amer) 13.3 Est GFR (Non-Af Amer) 11.5 BUN/Creatinine Ratio 18.9 (10-20) Glucose 88 (70-99) mg/dl Lactate 4.0 H* (0.4-2.0) mmol/L Calcium 8.1 L (8.5-10.1) mg/dl Magnesium 2.2 (1.8-2.4) mg/dl Random Cortisol Pending Nasal Screen MRSA (PCR) (Negative) COVID-19 Eval Order SARS-CoV-2 (PCR) (Negative) Influenza Type A (PCR) (Neg) Influenza Type B (PCR) (Neg) RSV (RT-PCR) (Neg) 10/11/20 10/11/20 10/11/20 Range/Units 05:49 02:38 01:06 WBC 14.38 H (4.8-10.8) K/uL RBC 3.18 L (4.2-5.4) M/uL Hgb 9.1 L (12.0-16.0) g/dL Hct 28.4 L (37-47) % MCV 89.3 (80-100) fL MCH 28.6 (25-34) pg MCHC 32.0 (32-36) g/dL RDW Std Deviation 61.7 H (36.4-46.3) fL RDW Coeff of Mary Kate 18.9 H (11.5-14.5) % Plt Count 281 (130-400) K/uL MPV 10.3 (7.4-10.4) fL Immature Gran % (Auto) 0.1 % Neut % (Auto) 57.7 % Lymph % (Auto) 32.8 % [place] % (Auto) 6.9 % Eos % (Auto) 2.3 % Baso % (Auto) 0.2 % Neut # (Auto) 8.30 H (1.4-6.5) K/uL Lymph # (Auto) 4.71 H (1.2-3.4) K/uL [place] # (Auto) 0.99 H (0.11-0.59) K/uL Eos # (Auto) 0.33 (0-0.5) K/uL Baso # (Auto) 0.03 (0-0.2) K/uL Immature Gran # (Auto) 0.02 (0.00-0.02) K/uL Sodium (136-145) mmol/L Potassium (3.5-5.1) mmol/L Chloride (98-107) mmol/L Carbon Dioxide (21-32) mmol/L Anion Gap (3-11) BUN (7-18) mg/dl Creatinine (0.6-1.2) mg/dl Est Cr Clr Drug Dosing ml/min Est GFR ( Amer) Est GFR (Non-Af Amer) BUN/Creatinine Ratio (10-20) Glucose (70-99) mg/dl Lactate 3.4 H* (0.4-2.0) mmol/L Calcium (8.5-10.1) mg/dl Magnesium (1.8-2.4) mg/dl Random Cortisol Nasal Screen MRSA (PCR) Negative (Negative) COVID-19 Eval Order SARS-CoV-2 (PCR) (Negative) Influenza Type A (PCR) (Neg) Influenza Type B (PCR) (Neg) RSV (RT-PCR) (Neg) 10/10/20 10/10/20 10/10/20 Range/Units 22:32 22:14 22:14 WBC (4.8-10.8) K/uL RBC (4.2-5.4) M/uL Hgb (12.0-16.0) g/dL Hct (37-47) % MCV (80-100) fL MCH (25-34) pg MCHC (32-36) g/dL RDW Std Deviation (36.4-46.3) fL RDW Coeff of Mary Kate (11.5-14.5) % Plt Count (130-400) K/uL MPV (7.4-10.4) fL Immature Gran % (Auto) % Neut % (Auto) % Lymph % (Auto) % [place] % (Auto) % Eos % (Auto) % Baso % (Auto) % Neut # (Auto) (1.4-6.5) K/uL Lymph # (Auto) (1.2-3.4) K/uL [place] # (Auto) (0.11-0.59) K/uL Eos # (Auto) (0-0.5) K/uL Baso # (Auto) (0-0.2) K/uL Immature Gran # (Auto) (0.00-0.02) K/uL Sodium (136-145) mmol/L Potassium (3.5-5.1) mmol/L Chloride (98-107) mmol/L Carbon Dioxide (21-32) mmol/L Anion Gap (3-11) BUN (7-18) mg/dl Creatinine (0.6-1.2) mg/dl Est Cr Clr Drug Dosing ml/min Est GFR ( Amer) Est GFR (Non-Af Amer) BUN/Creatinine Ratio (10-20) Glucose (70-99) mg/dl Lactate 4.5 H* (0.4-2.0) mmol/L Calcium (8.5-10.1) mg/dl Magnesium (1.8-2.4) mg/dl Random Cortisol Nasal Screen MRSA (PCR) (Negative) COVID-19 Eval Order CovFluRsv at [facility] SARS-CoV-2 (PCR) NEGATIVE (Negative) Influenza Type A (PCR) Negative (Neg) Influenza Type B (PCR) Negative (Neg) RSV (RT-PCR) Negative (Neg) 10/10/20 10/10/20 Range/Units 20:48 20:48 WBC 16.03 H (4.8-10.8) K/uL RBC 3.76 L (4.2-5.4) M/uL Hgb 10.7 L (12.0-16.0) g/dL Hct 33.7 L (37-47) % MCV 89.6 (80-100) fL MCH 28.5 (25-34) pg MCHC 31.8 L (32-36) g/dL RDW Std Deviation 61.8 H (36.4-46.3) fL RDW Coeff of Mary Kate 19.0 H (11.5-14.5) % Plt Count 350 (130-400) K/uL MPV 10.6 H (7.4-10.4) fL Immature Gran % (Auto) 0.2 % Neut % (Auto) 63.7 % Lymph % (Auto) 29.0 % [place] % (Auto) 5.5 % Eos % (Auto) 1.4 % Baso % (Auto) 0.2 % Neut # (Auto) 10.20 H (1.4-6.5) K/uL Lymph # (Auto) 4.65 H (1.2-3.4) K/uL [place] # (Auto) 0.88 H (0.11-0.59) K/uL Eos # (Auto) 0.23 (0-0.5) K/uL Baso # (Auto) 0.04 (0-0.2) K/uL Immature Gran # (Auto) 0.03 H (0.00-0.02) K/uL Sodium 139 (136-145) mmol/L Potassium 5.1 (3.5-5.1) mmol/L Chloride 106 (98-107) mmol/L Carbon Dioxide 24 (21-32) mmol/L Anion Gap 10.0 (3-11) BUN 63 H (7-18) mg/dl Creatinine 3.51 H (0.6-1.2) mg/dl Est Cr Clr Drug Dosing 14.2 ml/min Est GFR ( Amer) 13.1 Est GFR (Non-Af Amer) 11.3 BUN/Creatinine Ratio 17.9 (10-20) Glucose 96 (70-99) mg/dl Lactate (0.4-2.0) mmol/L Calcium 9.5 (8.5-10.1) mg/dl Magnesium (1.8-2.4) mg/dl Random Cortisol Nasal Screen MRSA (PCR) (Negative) COVID-19 Eval Order SARS-CoV-2 (PCR) (Negative) Influenza Type A (PCR) (Neg) Influenza Type B (PCR) (Neg) RSV (RT-PCR) (Neg) Medications Administered Current Inpatient Medications Acetaminophen (Acetaminophen 325 Mg Tab) 650 mg PO Q4H PRN PRN Reason: Pain or Fever Stop: 11/10/20 02:02 Last Admin: 10/11/20 02:54 Dose: 650 mg Documented by: Amiodarone HCl (Amiodarone 200 Mg Tab) 200 mg PO QAM [facility] Stop: 11/10/20 08:59 Apixaban (Apixaban 2.5 Mg Tab) 2.5 mg PO BID [facility] Stop: 11/10/20 08:59 Diltiazem HCl (Diltiazem Hcl 180 Mg Capcr) 180 mg PO QAM [facility] Stop: 11/10/20 08:59 Ezetimibe (Ezetimibe 10 Mg Tablet) 10 mg PO HS [facility] Stop: 11/10/20 20:59 Sodium Chloride (Nss 1000ml) 1,000 mls @ 100 mls/hr IV .Q10H [facility] Stop: 11/10/20 02:02 Last Admin: 10/11/20 02:39 Dose: 100 mls/hr Documented by: Linezolid (Zyvox) 600 mg in 300 mls @ 200 mls/hr IV Q12H [facility] Stop: 10/18/20 03:59 Last Infusion: 10/11/20 05:39 Dose: Infused Documented by: Piperacillin Sod/Tazobactam (Sod 4.5 gm/ Dextrose) 120 mls @ 30 mls/hr IV Q12H [facility]; Protocol Stop: 10/18/20 09:59 Albumin Human (Albumin 25%) 12.5 gm in 50 mls @ 50 mls/hr IV Q1H [facility] Stop: 10/11/20 09:59 Last Infusion: 10/11/20 09:02 Dose: Infused Documented by: Sodium Chloride (Nss) 500 mls @ 999 mls/hr IV .Q31M [facility] Stop: 10/11/20 09:58 Levothyroxine Sodium (Levothyroxine Sodium 50 Mcg Tablet) 50 mcg PO DAILYBB [facility] Stop: 11/10/20 06:29 Last Admin: 10/11/20 06:09 Dose: 50 mcg Documented by: Metoprolol Succinate (Metoprolol Succ 25mg Ext Rel Tab) 25 mg PO QAM [facility] Stop: 11/10/20 08:59 Miscellaneous Information (Linezolid Consult Active) 1 ea N/A UD PRN PRN Reason: Consult Stop: 11/10/20 02:02 Miscellaneous Information (Piperacill/Tazobac Consult Active) 1 ea N/A UD PRN PRN Reason: Consult Stop: 11/10/20 02:02 Nystatin (Nystatin Powder 15gm Btl) 1 appln EXT BID [facility] Stop: 11/10/20 08:59 Ondansetron HCl (Ondansetron Inj 2 Mg/Ml 2 Ml Vial) 4 mg IV Q6H PRN PRN Reason: Nausea Stop: 11/10/20 02:02 Pantoprazole Sodium (Pantoprazole 40 Mg Tab) 40 mg PO DAILYBB [facility] Stop: 11/10/20 06:29 Last Admin: 10/11/20 06:09 Dose: 40 mg Documented by: Rosuvastatin Calcium (Rosuvastatin Calcium 5 Mg Tab) 5 mg PO HS [facility] Stop: 11/10/20 20:59
[2020-10-11 10:24] LABS: Basophils # (auto) 0.03 K/uL (0-0.2); Basophils % (auto) 0.2 %; Eosinophils # (auto) 0.33 K/uL (0-0.5); Eosinophils % (auto) 2.5 %; Hematocrit (blood only) 25.8 % (37-47); Hemoglobin 8.2 g/dL (12.0-16.0); Immature Granulocytes # (auto) 0.02 K/uL (0.00-0.02); Immature Granulocytes % (auto) 0.2 %; Lymphocytes # (auto) 4.53 K/uL (1.2-3.4); Lymphocytes % (auto) 34.1 %; Mean Corpuscular Hemoglobin 28.9 pg (25-34); Mean Corpuscular Hgb Conc 31.8 g/dL (32-36); Mean Corpuscular Volume 90.8 fL (80-100); Monocytes # (auto) 0.84 K/uL (0.11-0.59); Monocytes % (auto) 6.3 %; Neutrophils # (auto) 7.55 K/uL (1.4-6.5); Neutrophils % (auto) 56.7 %; Platelet Count 269 K/uL (130-400); RDW Coefficient of Variation 19.1 % (11.5-14.5); RDW Standard Deviation 63.7 fL (36.4-46.3); Red Blood Count 2.84 M/uL (4.2-5.4)
[2020-10-11] MEDS ORDERED: CALCIUM GLUCONATE 10% 3,000 MG in SODIUM CHLORIDE 0.9% 50 ML IV ONE (10:30)
[2020-10-11] MEDS: NYSTATIN POWDER 15GM BTL EXT SCH ×2 (10:30→20:42)
[2020-10-11] MEDS ORDERED: GLUCAGON 5 MG in SYRINGE 0 ML IV ONE (10:35)
[2020-10-11 10:42] LABS: Alanine Aminotransferase 43 U/L (12-78); Albumin Globulin Ratio 0.9 (0.9-2); Albumin Level 2.3 gm/dl (3.4-5.0); Alkaline Phosphatase 144 U/L (45-117); Aspartate Aminotransferase 108 U/L (15-37); BUN Creatinine Ratio 17.8 (10-20); Bilirubin,Total 0.6 mg/dl (0.2-1); Blood Urea Nitrogen 64 mg/dl (7-18); Calcium 8.3 mg/dl (8.5-10.1); Carbon Dioxide 25 mmol/L (21-32); Chloride 109 mmol/L (98-107); Est GFR (African American) 12.7; Globulin 2.7 gm/dl (2.5-4.0); Glucose 75 mg/dl (70-99); Potassium 4.4 mmol/L (3.5-5.1); Sodium 142 mmol/L (136-145)
[2020-10-11 10:43] LABS: Troponin I < 0.015 ng/ml (0-0.045)
[2020-10-11 11:12] LABS: C Reactive Protein 1.91 mg/dl (0-0.29)
--- NOTE | 2020-10-11 11:28 | CT Scan Report ---
CT chest diagnostic wo con CLINICAL HISTORY: Chest Pain, hypotension COMPARISON STUDY: Chest x-ray dated 10/10/2020 CT DOSE: 1837.20 mGycm TECHNIQUE: CT of the thorax was performed from the thoracic inlet to the lung bases. Images are revi ewed in the axial, sagittal, and coronal planes. IV contrast was not administered for this examinatio n. A dose lowering technique was utilized adhering to the principles of ALARA. FINDINGS: Thyroid: Imaged portions of the thyroid gland are normal in appearance. Thoracic aorta: The thoracic aorta is normal in course and caliber, noting standard 3 vessel arch wilbert derek. Heart: The heart is normal in size. There are coronary artery calcifications. There is no pericardial effusion. Lungs and pleural spaces: There are small bilateral pleural effusions right greater than left. There are dependent atelectatic changes. There is no lobar consolidation. There is minor septal edema. Mediastinum: Mediastinal lymph nodes are the upper limits of normal in size. Radha: There is no evidence of pathologic hilar adenopathy given the limitations of a noncontrast stud y. Axilla: There is no evidence of pathologic axillary lymphadenopathy. Upper abdomen: There is ascites. Gallbladder is surgically absent. There is artifact from the patien t's overlying arms. Skeletal structures: There is a healing displaced comminuted proximal right humeral fracture. There i s an old L1 superior endplate compression deformity. IMPRESSION: 1. Motion compromised study 2. Small bilateral pleural effusions right greater than left 3. Ascites 4. Mild septal edema 5. No evidence of lobar consolidation ACT 112: Negative or not required by law. Electronically signed by: Shane Hsieh M.D. 10/11/2020 11:27 AM
--- NOTE | 2020-10-11 11:33 | Consultation Report ---
DATE OF CONSULTATION: 10/11/2020 NEPHROLOGY CONSULTATION NOTE REASON FOR CONSULT: Acute renal failure. HISTORY OF PRESENT ILLNESS: The patient is an 85-year-old female with multiple medical problems, but fairly good kidney function with a baseline creatinine of 1.1 as of last month. She has had complicated course of events in the last few weeks to months. She was admitted in this hospital in August with pneumonia and was treated with antibiotics and discharged to home. Earlier this month, she was in [facility] getting treatment for cellulitis of bilateral lower extremities, renal insufficiency. After that admission, she was discharged to [facility]. She presented to the hospital yesterday because of poor appetite, weakness, cough, some diarrhea. It is hard to get accurate meaningful history from the patient given complicated course of events in the last few weeks. She was found to have acute renal failure with a creatinine in the 3 range, significantly higher than a month ago when she had 1.12 creatinine. Blood pressure was low and has been low all night and as a result, she just got transferred to intensive care unit. Currently, she is getting IV fluid. She does not have a Chinchilla catheter, but she is making urine based on the bladder scan and the voiding and incontinence. Her lactic acid is high. Her white count is high. All the cultures have been sent, but are pending and she is on broad spectrum antibiotics. She is not requiring any oxygen at this time and has not required any vasopressors as of now. PAST MEDICAL HISTORY: Hypertension, chronic atrial fibrillation, on amiodarone as well as other medication, coronary artery disease, morbid obesity, Higginbotham esophagus, chronic kidney disease stage III with most recent creatinine of 1.12 as of a month ago, history of monoclonal gammopathy, depression, generalized anxiety disorder. PAST SURGICAL HISTORY: Ankle arthroscopy, appendicectomy, colonoscopy, EGDs, laparoscopic cholecystectomy, removal of pilonidal cyst, throat surgery, total hysterectomy. MEDICATIONS AT HOME: Include Tylenol, amiodarone, Eliquis, Cardizem, esomeprazole, ezetimibe, Lasix 40 mg daily, levothyroxine, Zyvox recently started, metoprolol, nystatin, MiraLax, Crestor, Zoloft, tramadol. FAMILY HISTORY: Negative for renal disease or dialysis. SOCIAL HISTORY: She is a , currently living at the [facility]. Former smoker, quit in 1971. No alcohol, no drugs. Needs a lot of support at this time for ambulation and everything. REVIEW OF SYSTEMS: As per HPI, very hard to obtain accurate review of system from the patient. She is complaining of some chest pain at this point. PHYSICAL EXAMINATION: GENERAL: Elderly white female who is morbidly obese. She is complaining of chest pain at this time. VITAL SIGNS: Most recent blood pressure was 86/52, pulse rate 56, temperature 36.6, 99% on room air. HEENT: Mucous membrane is moist. NECK: Supple. No jugular venous distention. CHEST: Bilaterally decreased breath sounds, but very poor inspiratory effort limiting the quality of the exam. CARDIOVASCULAR: S1 and S2 regular. Soft systolic murmur heard. ABDOMEN: Soft, nontender, obese. EXTREMITIES: Show 2+ pitting edema with some skin changes. NEUROLOGIC: She is able to speak and answer basic questions. Normal speech. Moving all 4 extremities. LABORATORY TESTS: As of 5 weeks ago, she had a creatinine of 1.12, yesterday at the time of admission was 3.51, this morning is 3.47, BUN is 66. Sodium 142, potassium 4.5. Lactic acid is still elevated at 4.0, calcium 8.1, magnesium 2.2. WBC count was 16,000 yesterday, this morning is 14,000, hemoglobin is 9.1. Urinalysis showed ketone positive, 10-20 epithelial cells. CHEST X-RAY: Showed a right basilar opacity, which may reflect an infectious process or atelectasis. ASSESSMENT AND PLAN: An 85-year-old female who is admitted at this time with multitude of problems including possible sepsis with hypotension and associated acute renal failure on background chronic kidney disease III. Acute renal failure: As 5 weeks ago, she had a creatinine almost normal at 1.12. At this point, her creatinine is about 3.5, which is a significant rise. In this interim 5 weeks, she has had multiple events including admission for cellulitis as well as pneumonia. The most likely etiology of acute renal failure is acute tubular necrosis like picture in the setting of sepsis with hypotension. She is making urine and her electrolytes are acceptable. Also, the creatinine this morning is about the same as last night, which is a good prognostic sign. Her blood pressure also seems to be trending in the right direction. She is currently getting normal saline, but she does have significant bilateral lower extremity edema and she is at high risk of developing pulmonary edema, so I would be very cautious with aggressive IV hydration. Please have a low threshold of stopping IV fluid and using vasopressors to maintain her blood pressure. As long as we maintain good vital signs, I expect her renal function to be better in the coming days. Hopefully, we will not have to do dialysis. No further workup is needed. If her creatinine continues to rise, we can consider doing a renal ultrasound or a CT abdomen, but I do not think that is needed at this point as the chance of this being obstructive uropathy is extremely low. Continue dose titration for her glomerular filtration rate. As far as possible, avoid nephrotoxic agents including contrast agent, nephrotoxic antibiotic, non-steroidal anti-inflammatory drugs and also hold the diuretics for the time being.
[2020-10-11 11:38] LABS: T4 Free Thyroxine 1.44 ng/dl (0.8-1.6)
--- NOTE | 2020-10-11 11:45 | CT Scan Report ---
CT OF THE ABDOMEN AND PELVIS WITHOUT CONTRAST CLINICAL HISTORY: colitis? diarrhea COMPARISON STUDY: CT of the abdomen and pelvis August 29, 2020. TECHNIQUE: Axial images of the abdomen and pelvis were obtained without IV contrast. Images were revi ewed in the axial, sagittal, and coronal planes. Automated exposure control was utilized for the vonnie dy. A dose lowering technique was utilized adhering to the principles of ALARA. FINDINGS: Please note that the chest CT will be reported separately. Bilateral pleural effusions are better depicted on that exam. Interlobular septal thickening indicates pulmonary edema. Evaluation of the abdomen and pelvis is suboptimal on this unenhanced examination. Small to moderate abdominal and pelvic ascites is noted. Anasarca is present. Gallbladder is surgically absent. This exam is comprom ised by artifact. Unenhanced images of the spleen, adrenal glands and right kidney are unremarkable. A water attenuation left renal lesion favors a cyst although suboptimally assessed on this unenhanced exam. There is no evidence for a bowel obstruction. No lymphadenopathy is present. There is no hydro nephrosis. No retroperitoneal hematoma is identified. There is apparent mild wall thickening of the a scending colon. IMPRESSION: 1. Evidence for volume overload with small to moderate ascites, anasarca, bilateral pleural effusions and interstitial pulmonary edema. 2. No bowel obstruction. Apparent mild wall thickening of the ascending colon. This is likely due to underdistention. Nonspecific colitis could appear similar. ACT 112: Negative or not required by law. Electronically signed by: Nikita Doss M.D. 10/11/2020 11:44 AM
--- NOTE | 2020-10-11 11:52 | Ultrasound Report ---
EXAMINATION: RENAL ULTRASOUND CLINICAL HISTORY: Acute renal insufficiency COMPARISON STUDY: CT scan dated 10/11/2020 FINDINGS: The right kidney measures 11.8 cm. The left kidney measures 11.4 cm. There is no evidence of hydronephrosis. There is a 39 mm left renal cyst The bladder was nonvisualized. The patient has indwelling Chinchilla catheter. There is mild to moderate ascites. IMPRESSION : 1. Mild to moderate ascites 2. 39 mm left renal cyst 3. No evidence of hydronephrosis ACT 112: Negative or not required by law. Electronically signed by: Shane Hsieh M.D. 10/11/2020 11:51 AM
[2020-10-11] MEDS: PIPERACILLIN/TAZOBACTAM 4.5 GM in DEXTROSE 5% 100 ML IV SCH ×2 (12:01→20:43)
[2020-10-11] MEDS: PANTOprazole 40 MG in SYRINGE 0 ML IV SCH (12:01)
[2020-10-11 12:14] LABS: Appearance Urine Cloudy (Clear); Bacteria Urine Automated Negative (Negative); Blood Urine Negative (Negative); Color Urine Dark Yellow; Epithelial Cell Urine Auto >30 /lpf (0-5); Glucose Urine UA Negative (Negative); Ketones Urine Trace (Negative); Leukocyte Esterase Urine 1+ (Negative); Nitrite Urine Negative (Negative); Protein Urine Negative (Negative); Specific Gravity Urine 1.025 (1.000-1.030); Urobilinogen Urine Negative (Negative); WBC Urine Automated >30 /hpf (0-5)
[2020-10-11 12:19] LABS: Bilirubin Urine 1+ (Negative)
[2020-10-11 12:28] LABS: RBC Urine Automated 0-4 /hpf (0-4)
[2020-10-11 12:44] LABS: Chloride Random Urine < 10 mmol/L; Potassium Random Urine 44.8 mmol/L; Sodium Random Urine 7 mmol/L; Uric Acid Urine Random 32.3 mg/dl
--- NOTE | 2020-10-11 12:49 | Cardiology Consultation ---
Date of Consultation October 11, 2020 Assessment & Plan (1) Chest pain: -EKG performed this am on 934 on arrival to the ICU revealed SR at 65, with first degree AV block with [address] depression. Compared to [address] depression is new. -Troponin is negative x 1. -Stat CT of the chest and abdomen reveals bilateral small pleural effusions, greater than left, ascites -Lactate level was 3.5 -Agree with antibiotics for possible underlying sepsis. -Agree with holding diltiazem and metoprolol for now given low blood pressure, will likely need to reintroduce amiodarone when tolerating orals to avoid recurrent atrial fibrillation. -No ST elevation noted on EKG, no indication for emergent cardiac catheterization at present. -Continue with supportive care. -Proceed with echocardiogram. -Given acute renal insufficiency, will discontinue Eliquis, pending further assessment. -Start SQ heparin for DVT prophylaxis, pending further evaluation to determine the risk/benefits of systemic anticoagulation with unfractioned heparin at present. (2) Sepsis: -As noted above. (3) Acute renal failure: -Patient with baseline creatinine of 1.7-1.8 in 2019, with recent July, measurements of 1.4-2.3. -Creatinine this morning 3.61. -Perhaps related to progressive hypotension. -Nephrology input noted and appreciated. History of Present Illness Attending Physician: Brock Parnell MD History of Present Illness Sandi Lynn is an 85-year-old female seen in cardiology consultation per the request of Dr. Parnell for the evaluation of chest pain. Patient recently admitted to [facility] from 08/29/2020 until 09/02/2020 with chief complaint of generalized weakness, confusion, and noted to have recurrent falls. A right humerus fracture has been noted which has been managed nonoperatively by orthopedics. Discharge medication changes included a course of cefdinir, doxycycline, and prior to hospital treatment with amlodipine 5 mg daily was apparently discontinued and diltiazem CD 180 mg daily started. She was to remain on amiodarone and metoprolol succinate 25 mg daily. She was to remain on Eliquis 2.5 mg twice daily. She was subsequently admitted to [facility] from 10/04/2020 until 10/08/2020 and treated for cellulitis of the lower extremities, with ultimate transfer to [facility]. She has required a significant amount of assistance there and low oxygen saturations were noted as well as diarrhea prompting readmission overnight last night. Her initial blood pressure on presentation to the emergency department last evening at 2034 was 138/60, she ultimately developed low blood pressure in the gunner mate hours of this morning, with measurement of 70/52 and 930 prompting transfer to the intensive care unit. I saw her shortly after her arrival to the intensive care unit for complaints of chest discomfort. She was lethargic, and did not describe any other significant complaint. Past Cardiac History: 1.Chronic coronary heart disease, status post remote LAD PCI/stent 2.Most recent cardiac catheterization, [place], 04/18/14, widely patent previously placed stent, 30% proximal LAD stenosis, circumflex coronary artery with 30% ostial stenosis, 30% distal circumflex stenosis. The right coronary artery was a small non dominant vessel with 40% stenosis. 3.Lexiscan nuclear stress test 09/05/2017, normal perfusion, normal LVEF 4.Symptomatic paroxysmal atrial fibrillation, status post transesophageal e chocardiogram guided direct current cardioversion 09/09/2018 5.Hypertension 6.Dyslipidemia Allergies Allergy/AdvReac Type Severity Reaction Status Date / Time albuterol Allergy Severe severe Verified 10/10/20 21:53 tachycardia "heart rate was 252" levofloxacin [From Levaquin] Allergy Intermediate Tachycardia Verified 10/10/20 21:53 tetracycline Allergy Intermediate Hives Verified 10/10/20 21:53 [id number] Reductase Allergy Mild "leg Verified 10/10/20 21:53 Inhibitor cramps" with Lipitor sulfamethoxazole AdvReac Mild nausea/vomi Verified 10/10/20 21:53 [From Bactrim] ting trimethoprim [From Bactrim] AdvReac Mild nausea/vomi Verified 10/10/20 21:53 ting Home Medications Medication Instructions Recorded Confirmed Type amiodarone 200 mg PO QAM 04/05/19 10/10/20 History esomeprazole magnesium 40 mg PO DAILYBB 04/05/19 10/10/20 History ezetimibe 10 mg PO HS 04/05/19 10/10/20 History metoprolol succinate 25 mg PO QAM 04/05/19 10/10/20 History rosuvastatin [Crestor] 5 mg PO HS 04/05/19 10/10/20 History sertraline 75 mg PO QAM 04/05/19 10/10/20 History acetaminophen 650 mg PO Q6H PRN 10/10/20 10/10/20 History apixaban [Eliquis] 2.5 mg PO BID 10/10/20 10/10/20 History diltiazem HCl [Cardizem CD] 180 mg PO QAM 10/10/20 10/10/20 History furosemide [Lasix] 40 mg PO QAM 10/10/20 10/10/20 History levothyroxine 50 mcg PO DAILYBB 10/10/20 10/10/20 History linezolid 600 mg PO BID 10/10/20 10/10/20 History nystatin 1 applic TOPICAL BID 10/10/20 10/10/20 History polyethylene glycol 3350 [Miralax] 17 g PO QAM 10/10/20 10/10/20 History tramadol 50 mg PO Q4H PRN 10/10/20 10/10/20 History Patient History Medical History (Updated 10/11/20 @ 13:01 by Lance Servin DO) Anemia Atrial fibrillation on eliquis daily and follows with Dr. Servin Barretteran esophagus Basal cell carcinoma of skin of left breast removed in office Chronic kidney disease, stage 3 Depression GERD (gastroesophageal reflux disease) Gout Hiatal hernia Hyperlipidemia Hypertension Kidney stones On anticoagulant therapy eliquis daily Sleep apnea cpap Stroke 10/2017--no deficits, follows with Dr. Lozano in [place] Surgical History History of bilateral cataract extraction History of cardiac cath x5--last was 2015 History of cardioversion 08/2018 @ [facility] History of cholecystectomy History of colonoscopy with polypectomy History of dilatation and curettage x4 History of esophagogastroduodenoscopy (EGD) History of heart artery stent 2004? 1 stent at [facility] History of left breast biopsy benign History of open reduction and internal fixation (ORIF) procedure left ankle--hardware in place History of right breast biopsy benign History of surgery benign tumor removal of left leg History of tonsillectomy History of tooth extraction some upper/lower teeth History of total hysterectomy with bilateral salpingo-oophorectomy (BSO) Family History Father Family history of diabetes mellitus Other No family history of adverse response to anesthesia Social History Smoking Status: Never smoker Second Hand Exposure: No; Do You Dip or Chew Tobacco: No; Tobacco Cessation Education Requested by Patient: No Hx Alcohol Use: No Hx Substance Use: No Preferred Language: Welsh Communication Ability: Effective Chemical Etch Operator Required: No Beliefs That Will Affect Care: None Current Living Situation: Personal Care Facility Other Information That Helps Us Care for You: No Feels Safe at Home: Yes Safety Concerns: Feels Safe At This Time Assistive Devices: Wheelchair Review of Systems Review of Systems: All systems reviewed & are unremarkable except as noted in HPI & below Physical Exam Physical Exam: Temp Pulse Resp BP Pulse Ox 36.6 C 55 L 18 78/52 L 99 10/11/20 07:28 10/11/20 08:00 10/11/20 07:28 10/11/20 09:30 10/11/20 07:28 Constitutional: Lethargic Respiratory: normal respiratory effort, lungs clear to auscultation Cardiovascular: RRR, no murmur, no edema Gastrointestinal (Abdomen): normal bowel sounds, soft, nontender, no hepatosplenomegaly Neurologic: . Lethargic but moves all 4 extremities Results & Data ([facility]) Vital Signs (Past 12 Hours) Vital Signs Temp Pulse Pulse Resp BP BP BP 10/11/20 09:30 78/52 L 10/11/20 08:58 86/52 L 10/11/20 08:00 55 L 10/11/20 07:28 36.6 C 56 L 18 88/41 L 10/11/20 04:00 36.6 C 57 L 18 109/65 10/11/20 02:21 36.4 C L 62 16 133/73 10/11/20 01:01 58 L 16 123/44 L Pulse Ox 10/11/20 09:30 10/11/20 08:58 10/11/20 08:00 10/11/20 07:28 99 10/11/20 04:00 98 10/11/20 02:21 99 10/11/20 01:01 98 Laboratory Results Cardiac Enzymes 10/11/20 Range/Units 10:13 AST 108 H (15-37) U/L Troponin I < 0.015 (0-0.045) ng/ml CBC 10/10/20 10/11/20 10/11/20 Range/Units 20:48 05:49 10:13 WBC 16.03 H 14.38 H 13.30 H (4.8-10.8) K/uL RBC 3.76 L 3.18 L 2.84 L (4.2-5.4) M/uL Hgb 10.7 L 9.1 L 8.2 L (12.0-16.0) g/dL Hct 33.7 L 28.4 L 25.8 L (37-47) % Plt Count 350 281 269 (130-400) K/uL Neut # (Auto) 10.20 H 8.30 H 7.55 H (1.4-6.5) K/uL Lymph # (Auto) 4.65 H 4.71 H 4.53 H (1.2-3.4) K/uL Rusk # (Auto) 0.88 H 0.99 H 0.84 H (0.11-0.59) K/uL Eos # (Auto) 0.23 0.33 0.33 (0-0.5) K/uL Baso # (Auto) 0.04 0.03 0.03 (0-0.2) K/uL Comprehensive Metabolic Panel 10/10/20 10/11/20 10/11/20 Range/Units 20:48 05:49 10:13 Sodium 139 142 142 (136-145) mmol/L Potassium 5.1 4.5 4.4 (3.5-5.1) mmol/L Chloride 106 109 H 109 H (98-107) mmol/L Carbon Dioxide 24 25 25 (21-32) mmol/L BUN 63 H 66 H 64 H (7-18) mg/dl Creatinine 3.51 H 3.47 H 3.61 H (0.6-1.2) mg/dl Glucose 96 88 75 (70-99) mg/dl Calcium 9.5 8.1 L 8.3 L (8.5-10.1) mg/dl AST 108 H (15-37) U/L ALT 43 (12-78) U/L Alkaline Phosphatase 144 H (45-117) U/L Total Protein 5.0 L (6.4-8.2) gm/dl Albumin 2.3 L (3.4-5.0) gm/dl Intake and Output 10/10/20 10/11/20 10/11/20 22:59 06:59 14:59 Intake Total 1000 / 1520 520 / 1520 75 / 75 Balance 1000 / 1520 520 / 1520 75 / 75 Intake: IV 1000 / 1420 420 / 1420 75 / 75 Albumin 25% 12.5 gm In 50 ml @ 75 / 75 50 mls/hr IV Q1H JERMAINE Rx#: [id number] Linezolid 600 mg In 300 ml @ 300 / 300 200 mls/hr IV Q12H JERMAINE Rx#: [id number] Piperacillin/Tazobactam 4.5 gm 120 / 120 In Dextrose 5% 100 ml @ 200 mls /hr IV NOW ONE Rx#:[id number] Sodium Chloride 0.9% 1000ML 1, 1000 / 1000 000 ml @ 999 mls/hr IV .Q1H1M ONE Rx#:[id number] Oral 100 / 100 Other: # Unmeasured Voids 1 Weight 106.3 kg 95.2 kg Weight Measurement Method Built in [facility] Built in [facility] (1) Acute renal failure Acute renal failure type: unspecified Qualified Code(s): N17.9 - Acute kidney failure, unspecified
--- NOTE | 2020-10-11 15:16 | Palliative Care Consultation ---
Date of Consultation October 11, 2020 Assessment & Plan (1) Palliative care encounter: At that time of my visit, Sandi was not able to discuss goals of care, though earlier, as above, she had indicated that she would be agreeable to antibiotics and pressors. I met with her family including her twin sister and niece and POA, Jaquelin Armendariz. They have seen significant functional decline over the last several months. Sandi had been living independently at home with some occasional confusion prior to her decline. She has spoken with her family about her goals for care and they are all in agreement that she would want a comfort directed approach. Their hope would be for her to return to [facility] with hospice care. We discussed Sandi's discussion with Dr. Olmos earlier and the fact that her condition is somewhat unstable at this time. Sandi's sister was able to visit with her and family is in agreement to continue antibiotics until tomorrow and reassess. They would want pressor support overnight if indicated. We will reassess in am. Palliative care will follow. (2) Sepsis: (3) Acute renal failure: Acute renal failure type: unspecified Qualified Code(s): N17.9 - Acute kidney failure, unspecified (4) Closed fracture of right proximal humerus: Encounter type: sequela History of Present Illness Reason for Consultation: goals of care Requesting Physician: Dr. Parnell Attending Physician: Brock Parnell MD History of Present Illness 85 yo lady with history of afib, CAD, KIT and CKD IV. She has had three recent hospitalizations and [facility] being treated for bilateral lower extremity cellulitis. She had been transferred to [facility] where she was noted to have poor po intake and weakness. Her family notes that she has had consistent functional decline with several falls over the last two years including one where she fractured her humerus. On admission here, she had complaints of chest pain with no significant EKG changes or elevated troponin. She has small bilateral pleural effusions and ascites on CT. She has elevated lactic acid and leukocytosis with presumed sepsis as she has hypotension and HONEY. She is currently on antibiotic therapy and her mental status waxes and wanes. Earlier she had indicated that she would be agreeable to central line placement and pressor support if needed. Her niece, Jaquelin Armendariz, is her POA. She tells me that Sandi has an advanced directive which indicates no CPR or intubation, no dialysis, no transfusions. She has talked multiple times about not wanting extraordinary measures to prolong her life. Allergies Allergy/AdvReac Type Severity Reaction Status Date / Time albuterol Allergy Severe severe Verified 10/10/20 21:53 tachycardia "heart rate was 252" levofloxacin [From Levaquin] Allergy Intermediate Tachycardia Verified 10/10/20 21:53 tetracycline Allergy Intermediate Hives Verified 10/10/20 21:53 [id number]-[id number] Reductase Allergy Mild "leg Verified 10/10/20 21:53 Inhibitor cramps" with Lipitor sulfamethoxazole AdvReac Mild nausea/vomi Verified 10/10/20 21:53 [From Bactrim] ting trimethoprim [From Bactrim] AdvReac Mild nausea/vomi Verified 10/10/20 21:53 ting Home Medications Medication Instructions Recorded Confirmed Type amiodarone 200 mg PO QAM 04/05/19 10/10/20 History esomeprazole magnesium 40 mg PO DAILYBB 04/05/19 10/10/20 History ezetimibe 10 mg PO HS 04/05/19 10/10/20 History metoprolol succinate 25 mg PO QAM 04/05/19 10/10/20 History rosuvastatin [Crestor] 5 mg PO HS 04/05/19 10/10/20 History sertraline 75 mg PO QAM 04/05/19 10/10/20 History acetaminophen 650 mg PO Q6H PRN 10/10/20 10/10/20 History apixaban [Eliquis] 2.5 mg PO BID 10/10/20 10/10/20 History diltiazem HCl [Cardizem CD] 180 mg PO QAM 10/10/20 10/10/20 History furosemide [Lasix] 40 mg PO QAM 10/10/20 10/10/20 History levothyroxine 50 mcg PO DAILYBB 10/10/20 10/10/20 History linezolid 600 mg PO BID 10/10/20 10/10/20 History nystatin 1 applic TOPICAL BID 10/10/20 10/10/20 History polyethylene glycol 3350 [Miralax] 17 g PO QAM 10/10/20 10/10/20 History tramadol 50 mg PO Q4H PRN 10/10/20 10/10/20 History Patient History Medical History Anemia Atrial fibrillation on eliquis daily and follows with Dr. Malathi Escalante esophagus Basal cell carcinoma of skin of left breast removed in office Chronic kidney disease, stage 3 Depression GERD (gastroesophageal reflux disease) Gout Hiatal hernia Hyperlipidemia Hypertension Kidney stones On anticoagulant therapy eliquis daily Sleep apnea cpap Stroke 10/2017--no deficits, follows with Dr. Lozano in [place] Surgical History History of bilateral cataract extraction History of cardiac cath x5--last was 2015 [facility] of [facility] History of cholecystectomy History of colonoscopy with polypectomy History of dilatation and curettage x4 History of esophagogastroduodenoscopy (EGD) History of heart artery stent 2004? [facility] History of left breast biopsy benign History of open reduction and internal fixation (ORIF) procedure left ankle--hardware in place History of right breast biopsy benign History of surgery benign tumor removal of left leg History of tonsillectomy History of tooth extraction some upper/lower teeth History of total hysterectomy with bilateral salpingo-oophorectomy (BSO) Family History Father Family history of diabetes mellitus Other No family history of adverse response to anesthesia Social History Smoking Status: Never smoker Second Hand Exposure: No; Do You Dip or Chew Tobacco: No; Tobacco Cessation Education Requested by Patient: No Hx Alcohol Use: No Hx Substance Use: No Preferred Language: Georgian Communication Ability: Effective Youth Care Specialist Required: No Beliefs That Will Affect Care: None Current Living Situation: Personal Care Facility Other Information That Helps Us Care for You: No Feels Safe at Home: Yes Safety Concerns: Feels Safe At This Time Assistive Devices: Wheelchair Review of Systems Review of Systems: Unobtainable due to reduced consciousness Physical Exam Constitutional: + lethargic ENMT: Mouth: + dry oral mucous membranes Respiratory: brief apnea Cardiovascular: Rate/Rhythm: + irregularly irregular Gastrointestinal (Abdomen): Inspection/Auscultation: + significant pannus Musculoskeletal: Extremities: + muscle atrophy (lower extremities) Skin: no cellulitis noted lower extremities Results & Data ([facility]) Vital Signs (Past 12 Hours) Vital Signs Temp Pulse Pulse Resp BP BP BP 10/11/20 14:01 57 L 15 95/42 L 10/11/20 13:45 57 L 13 107/48 L 10/11/20 13:42 59 L 16 105/55 L 10/11/20 13:00 59 L 14 10/11/20 12:00 60 15 93/51 L 10/11/20 11:30 64 17 114/53 L 10/11/20 11:19 62 17 113/57 L 10/11/20 10:30 65 13 120/50 L 10/11/20 10:15 66 21 115/46 L 10/11/20 10:00 65 19 120/51 L 10/11/20 09:56 63 21 112/55 L 10/11/20 09:30 78/52 L 10/11/20 08:58 86/52 L 10/11/20 08:00 55 L 10/11/20 07:28 97.9 F 56 L 18 88/41 L 10/11/20 04:00 97.9 F 57 L 18 109/65 Pulse Ox 10/11/20 14:01 10/11/20 13:45 10/11/20 13:42 10/11/20 13:00 95 10/11/20 12:00 10/11/20 11:30 10/11/20 11:19 10/11/20 10:30 10/11/20 10:15 10/11/20 10:00 10/11/20 09:56 10/11/20 09:30 10/11/20 08:58 10/11/20 08:00 10/11/20 07:28 99 10/11/20 04:00 98 PG Care Time/CCT Total # of Minutes Spent Total Time Spent with Patient: Total time spent is greater than 50% in coordination of care (as documented) at patient's floor/unit and/or counseling patient: total time spent 75 minutes with more than 50% of time spent on family meeting, goals of care, prognosis. Coding Level of Care Code 82781 Inpt Consult Level 4 Diagnoses Palliative care encounter Z51.5 Sepsis A41.9 Acute renal failure N17.9 Acute renal failure type: unspecified Closed fracture of right proximal humerus S42.201A Encounter type: sequela Time Spent (min) 75
--- NOTE | 2020-10-11 16:25 | Communication Note ---
Date of Service: October 11, 2020 Bedside echocardiogram performed earlier today reveals normal biventricular systolic function, with no LV wall motion abnormalities LVEF 60 to 65%. Mild tricuspid regurgitation is present with severe pulmonary hypertension, estimated pulmonary artery systolic pressure in the range of 70 to 80 mmHg. On a previous echocardiogram performed in [place] in 2018, the estimated pulmonary artery systolic pressure was 39 at that time. Although pulmonary embolism is a consideration given new onset pulmonary hypertension, Patient has not had difficulties with oxygenation, and seemingly has been on uninterrupted anticoagulation up until today with Eliquis. I discussed the echo results with Dr. Olmos by phone. For now, clinical suspicion of pulmonary embolism remains low, and pulmonary artery systolic pressure elevation be reflective of total body volume overload, diastolic dysfunction. Unable to perform CT angiogram given acute renal insufficiency. Anemia noted. For the time being, we will hold off on resuming systemic anticoagulation, as we wait for Eliquis to wear off in the setting of acute renal insufficiency.
[2020-10-11] MEDS: D5W AND 1/2NSS 1,000 ML IV SCH (18:10)
[2020-10-11] MEDS: EZETIMIBE 10 MG TABLET PO SCH (20:42)
[2020-10-11] MEDS: ROSUVASTATIN CALCIUM 5 MG TAB PO SCH (20:42)
[2020-10-11] MEDS: HEPARIN SOD 5,000 UNIT/0.5 ML VIAL SQ SCH (20:43)
--- NOTE | 2020-10-11 22:18 | Electrocardiogram Report ---
Test Reason : Blood Pressure : / mmHG Vent. Rate : 059 BPM Atrial Rate : 059 BPM P-R Int : 178 ms QRS Dur : 102 ms QT Int : 436 ms P-R-T Axes : 043 054 088 degrees QTc Int : 431 ms Sinus bradycardia Nonspecific T wave abnormality Abnormal ECG When compared with ECG of 29-AUG-2020 16:30, T wave amplitude has decreased in Anterior leads Confirmed by Romario Low ([id number]) on 10/11/2020 10:18:32 PM Referred By: REFERRED SELF Confirmed By:Romario Low
[2020-10-12] MEDS: LINEZOLID 600 MG/300 ML BAG IV SCH ×2 (04:20→16:52)
[2020-10-12 05:15] LABS: Basophils # (auto) 0.03 K/uL (0-0.2); Basophils % (auto) 0.3 %; Eosinophils # (auto) 0.31 K/uL (0-0.5); Eosinophils % (auto) 2.6 %; Hematocrit (blood only) 24.9 % (37-47); Hemoglobin 8.1 g/dL (12.0-16.0); Immature Granulocytes # (auto) 0.02 K/uL (0.00-0.02); Immature Granulocytes % (auto) 0.2 %; Lymphocytes # (auto) 3.63 K/uL (1.2-3.4); Lymphocytes % (auto) 30.4 %; Mean Corpuscular Hemoglobin 28.8 pg (25-34); Mean Corpuscular Hgb Conc 32.5 g/dL (32-36); Mean Corpuscular Volume 88.6 fL (80-100); Mean Platelet Volume 9.8 fL (7.4-10.4); Monocytes # (auto) 0.57 K/uL (0.11-0.59); Monocytes % (auto) 4.8 %; Neutrophils # (auto) 7.38 K/uL (1.4-6.5); Neutrophils % (auto) 61.7 %; Platelet Count 236 K/uL (130-400); RDW Standard Deviation 61.2 fL (36.4-46.3); Red Blood Count 2.81 M/uL (4.2-5.4); White Blood Count 11.94 K/uL (4.8-10.8)
[2020-10-12 05:48] LABS: BUN Creatinine Ratio 17.2 (10-20); Bilirubin,Total 0.6 mg/dl (0.2-1); Calcium 8.2 mg/dl (8.5-10.1); Creatinine Clr Calc Pharmacy 12.2 ml/min; Est GFR (African American) 11.7 ml/min; Est GFR (Non-African American) 10.1 ml/min; Magnesium 2.1 mg/dl (1.8-2.4); Potassium 4.2 mmol/L (3.5-5.1)
[2020-10-12] MEDS: LEVOTHYROXINE SODIUM 50 MCG TABLET PO SCH (05:50)
[2020-10-12 05:53] LABS: Albumin Globulin Ratio 0.8 (0.9-2); Globulin 2.5 gm/dl (2.5-4.0); Phosphorus 4.2 mg/dl (2.5-4.9); Total Protein 4.5 gm/dl (6.4-8.2); Troponin I 0.044 ng/ml (0-0.045)
--- NOTE | 2020-10-12 06:09 | Electrocardiogram Report ---
Test Reason : Blood Pressure : / mmHG Vent. Rate : 064 BPM Atrial Rate : 064 BPM P-R Int : 200 ms QRS Dur : 104 ms QT Int : 496 ms P-R-T Axes : 000 069 257 degrees QTc Int : 522 ms Normal sinus rhythm Low voltage QRS Prolonged QT Abnormal ECG When compared with ECG of 10-OCT-2020 20:38, T wave inversion now evident in Anterolateral leads QT has lengthened Confirmed by Romario Low ([id number]) on 10/12/2020 6:09:22 AM Referred By: REFERRED SELF Confirmed By:Romario Low
[2020-10-12] MEDS: HEPARIN SOD 5,000 UNIT/0.5 ML VIAL SQ SCH (08:01)
[2020-10-12] MEDS: NYSTATIN POWDER 15GM BTL EXT SCH ×2 (08:02→21:05)
--- NOTE | 2020-10-12 09:08 | Palliative Care Progress Note ---
Date of Service October 12, 2020 Assessment & Plan (1) Palliative care encounter: I talked with Sandi about how she would like us to approach her care. We discussed the meeting that I had with her family yesterday and her conversation with Dr. Olmos yesterday. She confirms that she would not want CPR or intubation. She is agreeable to continuing antibiotics and using pressor support if needed, though her BP has improved with antibiotics and fluid bolus. Her family has been concerned about her functional decline and quality of life. Sandi agrees that longer term goal would be return to [facility] where she could have hospice care and have time with her family, however, she does want to continue current level of treatment at this time as long as there are signs of improvement. I spoke with her niece and POA, Jaquelin Armendariz, on the phone and updated her. Sandi is more interactive today but remains fragile with poor prognosis. Per discussion with Sandi, she would like to continue current care and we will monitor for another 48 hours. Jaquelin supports this decision. She has asked if her mother, Sandi's twin sister, and her niece who is very close to Sandi, be able to visit today. I discussed this with Dr. Olmos and both will be allowed separately for short visits today. assignment desk assistant was notified. Plan will be to arrange hospice for her return to [facility] and reassess tomorrow, but continue current care until then. (2) Chest pain: (3) Sepsis: (4) Acute renal failure: (5) Closed fracture of right proximal humerus: Admission and Anticipated Discharge Date Admission Date: October 10, 2020 Subjective More alert today. BP and WBC improved. Off O2. Remains very weak with some lethargy. She does recall her conversation with Dr. Olmos yesterday about antibiotics and pressors and confirms that she agreed to those. Review of Systems Review of Systems: [place] Symptom Assessment Scale Pain 0/3 Dyspnea 0/3 Nausea 0/3 Anxiety 0/3 Fatigue 3/3 Anorexia 2/3 Drowsiness 2/3 Palliative Performance Score 20% Physical Exam Constitutional: + obese and + lethargic; no acute distress ENMT: Mouth: + dry oral mucous membranes Respiratory: normal respiratory effort; no labored breathing Cardiovascular: Rate/Rhythm: regular rhythm and + bradycardic Gastrointestinal (Abdomen): Inspection/Auscultation: + significant pannus Neurologic: moves all extremities; not confused Results & Data ([facility]) Vital Signs (Past 12 Hours) Vital Signs Temp Pulse Resp BP Pulse Ox 10/12/20 08:01 53 L 20 139/46 L 95 10/12/20 08:00 97.7 F 53 L 14 94 10/12/20 07:27 53 L 14 143/31 H 89 L 10/12/20 07:00 52 L 16 73/61 L 10/12/20 04:07 97.5 F L 55 L 16 166/42 H 95 10/12/20 03:25 55 L 17 92 10/12/20 03:01 57 L 15 110/41 L 76 L 10/12/20 02:01 53 L 13 122/44 L 97 10/12/20 01:01 52 L 17 136/31 L 97 10/12/20 00:01 98.1 F 53 L 15 113/47 L 100 10/11/20 23:29 54 L 15 100 10/11/20 23:00 55 L 13 99/82 L 98 10/11/20 22:01 56 L 14 146/53 H 92 10/11/20 21:01 56 L 13 162/44 H 96 PG Care Time/CCT Total # of Minutes Spent Total Time Spent with Patient: Total time spent is greater than 50% in coordination of care (as documented) at patient's floor/unit and/or counseling patient: total time spent 50 minutes with more than 50% of time spent on goals of care, family update and education, coordination of care Coding Level of Care Code 10429 Subseq Hosp Care Lvl 3 Diagnoses Palliative care encounter Z51.5 Chest pain R07.9 Sepsis A41.9 Acute renal failure N17.9 Acute renal failure type: unspecified Closed fracture of right proximal humerus S42.201A Encounter type: sequela Time Spent (min) 50 (1) Acute renal failure Acute renal failure type: unspecified Qualified Code(s): N17.9 - Acute kidney failure, unspecified (2) Closed fracture of right proximal humerus Encounter type: sequela
--- NOTE | 2020-10-12 11:47 | Progress Notes ---
DATE: 10/12/2020 NEPHROLOGY PROGRESS NOTE SUBJECTIVE: The patient appears very weak and not interactive. She is not following command to me and sleeping. OBJECTIVE: VITAL SIGNS: Her vital signs appear to be better though with the most recent blood pressure of 137/48, pulse rate 55, temperature 36.8. She is on 3 liters oxygen at this time with good oxygen saturation. HEENT: Mucous membrane is dry, but she has mouth open. CHEST: Bilaterally decreased breath sounds, but very poor inspiratory effort limiting the quality of the exam. CARDIOVASCULAR: S1, S2 regular. ABDOMEN: Soft, nontender. EXTREMITIES: Show trace to 1+ edema. GENITOURINARY: She does have a Chinchilla catheter, but her urine output has been fairly low and is clearly oliguric at this time, 90 mL of urine since 7:00 in the morning. LABORATORY TEST: From this morning shows creatinine is still rising with this morning it is 3.85, BUN is 66. Lactic acid last night was still high at 3.1. Hemoglobin 8.1, WBC count 11,000. ASSESSMENT AND PLAN: An 85-year-old female who is admitted at this time with multitude of problems including possible sepsis with hypotension and associated acute renal failure on background chronic kidney disease III. Acute renal failure: This is secondary to acute tubular necrosis in the setting of sepsis and hypotension. Urine output since this morning appears to be better than yesterday, which is always an encouraging sign. However, creatinine has not started to come down and it may take a while for the creatinine to start improving. In any case, the rise is not very prominent. She does not need dialysis at this point. We will continue to assess her everyday. She is not eating or drinking anything, so the gentle hydration we are doing is appropriate. Continue to hold the diuretics for now.
[2020-10-12] MEDS: PANTOprazole 40 MG in SYRINGE 0 ML IV SCH (11:50)
--- NOTE | 2020-10-12 11:51 | Hospitalist Progress Note ---
Date of Service October 12, 2020 Assessment & Plan (1) Generalized weakness: (2) Sepsis: (3) Hypotension: (4) Elevated lactic acid level: This is an 85-year-old female who presents with ongoing illness. 1. Sepsis: Source could be pneumonia, cellulitis, with elevated lactate of 4.5 , WBC 16K - blood pressure was acceptable on admission however pt hypotensive soon after - received IV 500 NS bolus and albumin and persistently in 70-80s/50s - discussed code status with the pt and family (PAULETTE Armendariz), ok to pressor support if needed -contacted Dr. bueno, turkey farmer, pt will receive additional IV NS bolus and will be transferred to ICU for further management - BP improved in ICU after IVF, also nitro patch was found and removed -afebrile, currently, saturating 90s% on RA. Because of allergies, empirically started on Zosyn and Zyvox. CT chest obtained, not c/w pneumonia. DC zosyn, cont. linezolid for cellulitis Follow the cultures. IV fluids Repeat lactic acid ~3 2. Chest pain - pt developed chest pain yesterday (10/11) EKG, troponin obtained - cardiology consulted - Echo obtained - Anterior ST depression noted on presentation to the ICU yesterday has improved. Troponin levels detectable, but not significantly elevated. And she has no symptoms suggestive angina. Echocardiogram performed 10/11/2020 reveals normal biventricular systolic function without regional wall motion abnormalities. New severe pulmonary hypertension noted on echo. Given the fact that she is on anticoagulation without hypoxia or tachycardia, it is felt that the likelihood of underlying pulmonary embolism is clinically low. Pulmonary hypertension may be reflective of her ascites, pleural effusions with thoughts that although she is perhaps intravascularly volume depleted, she does have total body overload. 3. Afib Continue amiodarone, hold Toprol-XL, diltiazem due to low BP She is on Eliquis on a chronic basis for Afib. This was discontinued due to her acute renal insufficiency. She is not a candidate for Lovenox given the renal insufficiency. Will start heparin bridge, no bolus. Monitor hemoglobin. 4. Diarrhea - pt reports having loose stools, concern for poss. C. diff given recent Abx treatments - will obtain stool studies - CT abdomen /pelvis obtained 5. Anemia - component of chronic disease in setting of CKD - per Jaquelin, POA, there was concern of GI bleed at [place], Hgb was 8, Eliquis was held - current Hgb 8-9, will cont. to closely monitor 6. HONEY on CKD stage IV: Baseline creatinine around 1.2, presently with creatinine of 3.5. Cr above 3 last wek per Jaquelin (POA) -Last month, she had vancomycin. The patient reported micturating ok, however her urine output is small. We will follow the urinalysis. Cont. IVF, holding Lasix. We will monitor the response. Per Jaquelin pt may have had UTI while at [facility] Consult nephrology - HONEY likely secondary to ATN, continue to closely monitor 7. History of Higginbotham's esophagus: Continue Nexium. 8. Hypothyroidism: Continue Synthroid. 9. Hypertension: Patient hypotensive yesterday, albuterol sepsis/shock, holding diuretics, metoprolol and diltiazem 10. History of depression/ YOBANY: Hold the sertraline while she is on Zyvox. 11. History of hyperlipidemia: Continue Crestor. 12. History of coronary artery disease: Continue Crestor, metoprolol, and Zetia. 13. Morbid obesity: BMI over 40 , would recommend counseling if pt recovers from current illness. 14. Recent lower extremity cellulitis: Mild erythema of lower extremities. Getting antibiotics as above. 16. History of monoclonal gammopathy. 17. DVT prophylaxis: Eliquis switched to heparin Palliative medicine was consulted given patient's declining medical status over the past month at least. After further discussion with family, family decided for discharge with hospice tomorrow. Admission and Anticipated Discharge Date Admission Date: October 10, 2020 Subjective Patient seen in follow-up of sepsis Currently she is lying in bed, examined in ICU, where she was transferred yesterday due to hypotension Blood pressure now improved after IV fluids She appears very weak, but she is awake and able to answer some questions She denies having any complaints such as chest pain shortness of breath, abdominal pain Urine output has been minimal Cardiology, nephrology, intensive care medicine consulted Palliative medicine also consulted, and after further discussion with family, plan for discharge with hospice Review of Systems Review of Systems: All systems reviewed & are unremarkable except as noted in HPI & below Constitutional: + weakness (Generalized); no fever and no chills Respiratory: no cough and no dyspnea Cardiovascular: + edema; no chest pain and no palpitations Gastrointestinal: no abdominal pain, no nausea and no vomiting Genitourinary: + decreased urination Physical Exam Physical Exam: GENERAL: elderly obese F, not in acute distress. HEENT: NC/AT, Pupils equal, round, and reactive to light. Oral mucosa, reddish tongue. NECK: No JVD, no neck masses seen. CARDIOVASCULAR: S1, S2 heard, regular rate and rhythm, no murmur, no gallop. RESPIRATORY: Normal AP diameter. No accessory muscle use. No wheezing, no crackles. ABDOMEN: Soft, obese, bowel sounds present. No distention. NEURO: alert and oriented and answering questions appropriately. Speech fluent, no facial asymmetry, moves extremities. EXTREMITIES: +2-3 pitting B/l lower extremity edema present with mild erythematous changes seen. Results & Data Results & Data ([facility]) Vital Signs (Past 12 Hours) Vital Signs Temp Pulse Resp BP Pulse Ox 10/12/20 11:14 36.8 C 10/12/20 11:01 55 L 17 137/38 L 92 10/12/20 11:00 56 L 15 97 10/12/20 10:01 55 L 16 153/40 H 96 10/12/20 10:00 55 L 14 153/40 H 95 10/12/20 09:00 54 L 17 142/39 H 96 10/12/20 08:02 53 L 16 91 10/12/20 08:01 53 L 20 139/46 L 95 10/12/20 08:00 36.5 C 53 L 14 94 10/12/20 07:27 53 L 14 143/31 H 89 L 10/12/20 07:00 52 L 16 73/61 L 10/12/20 04:07 36.4 C L 55 L 16 166/42 H 95 10/12/20 03:25 55 L 17 92 10/12/20 03:01 57 L 15 110/41 L 76 L 10/12/20 02:01 53 L 13 122/44 L 97 10/12/20 01:01 52 L 17 136/31 L 97 10/12/20 00:01 36.7 C 53 L 15 113/47 L 100 Laboratory Results 10/12/20 10/12/20 10/12/20 Range/Units 11:46 04:55 04:55 WBC 11.94 H (4.8-10.8) K/uL RBC 2.81 L (4.2-5.4) M/uL Hgb 8.1 L (12.0-16.0) g/dL Hct 24.9 L (37-47) % MCV 88.6 (80-100) fL MCH 28.8 (25-34) pg MCHC 32.5 (32-36) g/dL RDW Std Deviation 61.2 H (36.4-46.3) fL RDW Coeff of Mary Kate 19.0 H (11.5-14.5) % Plt Count 236 (130-400) K/uL MPV 9.8 (7.4-10.4) fL Immature Gran % (Auto) 0.2 % Neut % (Auto) 61.7 % Lymph % (Auto) 30.4 % [place] % (Auto) 4.8 % Eos % (Auto) 2.6 % Baso % (Auto) 0.3 % Neut # (Auto) 7.38 H (1.4-6.5) K/uL Lymph # (Auto) 3.63 H (1.2-3.4) K/uL [place] # (Auto) 0.57 (0.11-0.59) K/uL Eos # (Auto) 0.31 (0-0.5) K/uL Baso # (Auto) 0.03 (0-0.2) K/uL Immature Gran # (Auto) 0.02 (0.00-0.02) K/uL Sodium 141 (136-145) mmol/L Potassium 4.2 (3.5-5.1) mmol/L Chloride 108 H (98-107) mmol/L Carbon Dioxide 24 (21-32) mmol/L Anion Gap 9.0 (3-11) BUN 66 H (7-18) mg/dl Creatinine 3.85 H (0.6-1.2) mg/dl Est Cr Clr Drug Dosing 12.2 ml/min Est GFR ( Amer) 11.7 ml/min Est GFR (Non-Af Amer) 10.1 ml/min BUN/Creatinine Ratio 17.2 (10-20) Glucose 93 (70-99) mg/dl POC Glucose 81 (70-99) mg/dl Lactate (0.4-2.0) mmol/L Calcium 8.2 L (8.5-10.1) mg/dl Phosphorus 4.2 (2.5-4.9) mg/dl Magnesium 2.1 (1.8-2.4) mg/dl Total Bilirubin 0.6 (0.2-1) mg/dl AST 111 H (15-37) U/L ALT 43 (12-78) U/L Alkaline Phosphatase 128 H (45-117) U/L Troponin I 0.044 (0-0.045) ng/ml Total Protein 4.5 L (6.4-8.2) gm/dl Albumin 2.0 L (3.4-5.0) gm/dl Globulin 2.5 (2.5-4.0) gm/dl Albumin/Globulin Ratio 0.8 L (0.9-2) Urine Color Urine Appearance (Clear) Urine pH (4.5-7.5) Ur Specific [place] (1.000-1.030) Urine Protein (Negative) Urine Glucose (UA) (Negative) Urine Ketones (Negative) Urine Blood (Negative) Urine Nitrite (Negative) Urine Bilirubin (Negative) Urine Urobilinogen (Negative) Ur Leukocyte Esterase (Negative) Urine WBC (Auto) (0-5) /hpf Urine RBC (Auto) (0-4) /hpf U Hyaline Cast (Auto) (0-5) /lpf U Epithel Cells (Auto) (0-5) /lpf Urine Bacteria (Auto) (Negative) Ur Renal Epithelial Cell Urine Yeast (None Prsent) Urine Osmolality (500-800) mOsm/kg Ur Random Creatinine mg/dl Ur Random Sodium mmol/L Ur Random Potassium mmol/L Ur Random Chloride mmol/L Ur Random Uric Acid mg/dl 10/12/20 10/11/20 10/11/20 Range/Units 00:13 20:14 16:58 WBC (4.8-10.8) K/uL RBC (4.2-5.4) M/uL Hgb (12.0-16.0) g/dL Hct (37-47) % MCV (80-100) fL MCH (25-34) pg MCHC (32-36) g/dL RDW Std Deviation (36.4-46.3) fL RDW Coeff of Mary Kate (11.5-14.5) % Plt Count (130-400) K/uL MPV (7.4-10.4) fL Immature Gran % (Auto) % Neut % (Auto) % Lymph % (Auto) % [place] % (Auto) % Eos % (Auto) % Baso % (Auto) % Neut # (Auto) (1.4-6.5) K/uL Lymph # (Auto) (1.2-3.4) K/uL [place] # (Auto) (0.11-0.59) K/uL Eos # (Auto) (0-0.5) K/uL Baso # (Auto) (0-0.2) K/uL Immature Gran # (Auto) (0.00-0.02) K/uL Sodium (136-145) mmol/L Potassium (3.5-5.1) mmol/L Chloride (98-107) mmol/L Carbon Dioxide (21-32) mmol/L Anion Gap (3-11) BUN (7-18) mg/dl Creatinine (0.6-1.2) mg/dl Est Cr Clr Drug Dosing ml/min Est GFR ( Amer) ml/min Est GFR (Non-Af Amer) ml/min BUN/Creatinine Ratio (10-20) Glucose (70-99) mg/dl POC Glucose 77 80 (70-99) mg/dl Lactate 3.1 H* (0.4-2.0) mmol/L Calcium (8.5-10.1) mg/dl Phosphorus (2.5-4.9) mg/dl Magnesium (1.8-2.4) mg/dl Total Bilirubin (0.2-1) mg/dl AST (15-37) U/L ALT (12-78) U/L Alkaline Phosphatase (45-117) U/L Troponin I (0-0.045) ng/ml Total Protein (6.4-8.2) gm/dl Albumin (3.4-5.0) gm/dl Globulin (2.5-4.0) gm/dl Albumin/Globulin Ratio (0.9-2) Urine Color Urine Appearance (Clear) Urine pH (4.5-7.5) Ur Specific [place] (1.000-1.030) Urine Protein (Negative) Urine Glucose (UA) (Negative) Urine Ketones (Negative) Urine Blood (Negative) Urine Nitrite (Negative) Urine Bilirubin (Negative) Urine Urobilinogen (Negative) Ur Leukocyte Esterase (Negative) Urine WBC (Auto) (0-5) /hpf Urine RBC (Auto) (0-4) /hpf U Hyaline Cast (Auto) (0-5) /lpf U Epithel Cells (Auto) (0-5) /lpf Urine Bacteria (Auto) (Negative) Ur Renal Epithelial Cell Urine Yeast (None Prsent) Urine Osmolality (500-800) mOsm/kg Ur Random Creatinine mg/dl Ur Random Sodium mmol/L Ur Random Potassium mmol/L Ur Random Chloride mmol/L Ur Random Uric Acid mg/dl 10/11/20 10/11/20 10/11/20 Range/Units 16:34 11:15 11:15 WBC (4.8-10.8) K/uL RBC (4.2-5.4) M/uL Hgb (12.0-16.0) g/dL Hct (37-47) % MCV (80-100) fL MCH (25-34) pg MCHC (32-36) g/dL RDW Std Deviation (36.4-46.3) fL RDW Coeff of Mary Kate (11.5-14.5) % Plt Count (130-400) K/uL MPV (7.4-10.4) fL Immature Gran % (Auto) % Neut % (Auto) % Lymph % (Auto) % [place] % (Auto) % Eos % (Auto) % Baso % (Auto) % Neut # (Auto) (1.4-6.5) K/uL Lymph # (Auto) (1.2-3.4) K/uL [place] # (Auto) (0.11-0.59) K/uL Eos # (Auto) (0-0.5) K/uL Baso # (Auto) (0-0.2) K/uL Immature Gran # (Auto) (0.00-0.02) K/uL Sodium (136-145) mmol/L Potassium (3.5-5.1) mmol/L Chloride (98-107) mmol/L Carbon Dioxide (21-32) mmol/L Anion Gap (3-11) BUN (7-18) mg/dl Creatinine (0.6-1.2) mg/dl Est Cr Clr Drug Dosing ml/min Est GFR ( Amer) ml/min Est GFR (Non-Af Amer) ml/min BUN/Creatinine Ratio (10-20) Glucose (70-99) mg/dl POC Glucose (70-99) mg/dl Lactate (0.4-2.0) mmol/L Calcium (8.5-10.1) mg/dl Phosphorus (2.5-4.9) mg/dl Magnesium (1.8-2.4) mg/dl Total Bilirubin (0.2-1) mg/dl AST (15-37) U/L ALT (12-78) U/L Alkaline Phosphatase (45-117) U/L Troponin I 0.036 (0-0.045) ng/ml Total Protein (6.4-8.2) gm/dl Albumin (3.4-5.0) gm/dl Globulin (2.5-4.0) gm/dl Albumin/Globulin Ratio (0.9-2) Urine Color Urine Appearance (Clear) Urine pH (4.5-7.5) Ur Specific [place] (1.000-1.030) Urine Protein (Negative) Urine Glucose (UA) (Negative) Urine Ketones (Negative) Urine Blood (Negative) Urine Nitrite (Negative) Urine Bilirubin (Negative) Urine Urobilinogen (Negative) Ur Leukocyte Esterase (Negative) Urine WBC (Auto) (0-5) /hpf Urine RBC (Auto) (0-4) /hpf U Hyaline Cast (Auto) (0-5) /lpf U Epithel Cells (Auto) (0-5) /lpf Urine Bacteria (Auto) (Negative) Ur Renal Epithelial Cell Urine Yeast (None Prsent) Urine Osmolality 330 L (500-800) mOsm/kg Ur Random Creatinine 221.0 mg/dl Ur Random Sodium 7 mmol/L Ur Random Potassium 44.8 mmol/L Ur Random Chloride < 10 mmol/L Ur Random Uric Acid 32.3 mg/dl 10/11/20 Range/Units 11:15 WBC (4.8-10.8) K/uL RBC (4.2-5.4) M/uL Hgb (12.0-16.0) g/dL Hct (37-47) % MCV (80-100) fL MCH (25-34) pg MCHC (32-36) g/dL RDW Std Deviation (36.4-46.3) fL RDW Coeff of Mary Kate (11.5-14.5) % Plt Count (130-400) K/uL MPV (7.4-10.4) fL Immature Gran % (Auto) % Neut % (Auto) % Lymph % (Auto) % [place] % (Auto) % Eos % (Auto) % Baso % (Auto) % Neut # (Auto) (1.4-6.5) K/uL Lymph # (Auto) (1.2-3.4) K/uL [place] # (Auto) (0.11-0.59) K/uL Eos # (Auto) (0-0.5) K/uL Baso # (Auto) (0-0.2) K/uL Immature Gran # (Auto) (0.00-0.02) K/uL Sodium (136-145) mmol/L Potassium (3.5-5.1) mmol/L Chloride (98-107) mmol/L Carbon Dioxide (21-32) mmol/L Anion Gap (3-11) BUN (7-18) mg/dl Creatinine (0.6-1.2) mg/dl Est Cr Clr Drug Dosing ml/min Est GFR ( Amer) ml/min Est GFR (Non-Af Amer) ml/min BUN/Creatinine Ratio (10-20) Glucose (70-99) mg/dl POC Glucose (70-99) mg/dl Lactate (0.4-2.0) mmol/L Calcium (8.5-10.1) mg/dl Phosphorus (2.5-4.9) mg/dl Magnesium (1.8-2.4) mg/dl Total Bilirubin (0.2-1) mg/dl AST (15-37) U/L ALT (12-78) U/L Alkaline Phosphatase (45-117) U/L Troponin I (0-0.045) ng/ml Total Protein (6.4-8.2) gm/dl Albumin (3.4-5.0) gm/dl Globulin (2.5-4.0) gm/dl Albumin/Globulin Ratio (0.9-2) Urine Color Dark Yellow Urine Appearance Cloudy A (Clear) Urine pH 5.0 (4.5-7.5) Ur Specific [place] 1.025 (1.000-1.030) Urine Protein Negative (Negative) Urine Glucose (UA) Negative (Negative) Urine Ketones Trace H (Negative) Urine Blood Negative (Negative) Urine Nitrite Negative (Negative) Urine Bilirubin 1+ H (Negative) Urine Urobilinogen Negative (Negative) Ur Leukocyte Esterase 1+ H (Negative) Urine WBC (Auto) >30 H (0-5) /hpf Urine RBC (Auto) 0-4 (0-4) /hpf U Hyaline Cast (Auto) 1-5 (0-5) /lpf U Epithel Cells (Auto) >30 H (0-5) /lpf Urine Bacteria (Auto) Negative (Negative) Ur Renal Epithelial Cell Not Reportable Urine Yeast Budding A (None Prsent) Urine Osmolality (500-800) mOsm/kg Ur Random Creatinine mg/dl Ur Random Sodium mmol/L Ur Random Potassium mmol/L Ur Random Chloride mmol/L Ur Random Uric Acid mg/dl Medications Administered Current Inpatient Medications Acetaminophen (Acetaminophen 325 Mg Tab) 650 mg PO Q4H PRN PRN Reason: Pain or Fever Stop: 11/10/20 02:02 Last Admin: 10/11/20 02:54 Dose: 650 mg Documented by: Amiodarone HCl (Amiodarone 200 Mg Tab) 200 mg PO QAM [facility] Stop: 11/11/20 11:59 Diltiazem HCl (Diltiazem Hcl 180 Mg Capcr) 180 mg PO QAM [facility] Stop: 11/10/20 08:59 Last Admin: 10/11/20 10:50 Dose: Not Given Documented by: Ezetimibe (Ezetimibe 10 Mg Tablet) 10 mg PO HS [facility] Stop: 11/10/20 20:59 Last Admin: 10/11/20 20:42 Dose: 10 mg Documented by: Heparin Sodium/Dextrose (Heparin Iv Adult Wt-Based Standard *No* Bolus Protocol) 1 ea IV Q20M [facility]; Protocol Stop: 11/11/20 11:49 Linezolid (Zyvox) 600 mg in 300 mls @ 200 mls/hr IV Q12H [facility] Stop: 10/18/20 03:59 Last Infusion: 10/12/20 05:50 Dose: Infused Documented by: Pantoprazole Sodium 40 mg/ (Syringe) 10 mls @ 5 mls/min IV DAILY@1100 [facility] Stop: 11/10/20 10:59 Last Admin: 10/11/20 12:01 Dose: 5 mls/min Documented by: Dextrose/Sodium Chloride (D5w And 1/2nss) 1,000 mls @ 40 mls/hr IV .Q24H [facility] Stop: 11/10/20 17:59 Last Admin: 10/11/20 18:10 Dose: 40 mls/hr Documented by: Heparin Sodium/Dextrose (Heparin Sodium/Dextrose) 25,000 units in 500 mls @ 0.02 mls/hr IV .Q24H [facility]; Protocol Stop: 11/11/20 11:57 Levothyroxine Sodium (Levothyroxine Sodium 50 Mcg Tablet) 50 mcg PO DAILYBB [facility] Stop: 11/10/20 06:29 Last Admin: 10/12/20 05:50 Dose: 50 mcg Documented by: Metoprolol Succinate (Metoprolol Succ 25mg Ext Rel Tab) 25 mg PO QAM [facility] Stop: 11/10/20 08:59 Last Admin: 10/11/20 10:50 Dose: Not Given Documented by: Miscellaneous Information (Linezolid Consult Active) 1 ea N/A UD PRN PRN Reason: Consult Stop: 11/10/20 02:02 Nystatin (Nystatin Powder 15gm Btl) 1 appln EXT BID [facility] Stop: 11/10/20 08:59 Last Admin: 10/12/20 08:02 Dose: 1 appln Documented by: Ondansetron HCl (Ondansetron Inj 2 Mg/Ml 2 Ml Vial) 4 mg IV Q6H PRN PRN Reason: Nausea Stop: 11/10/20 02:02 Rosuvastatin Calcium (Rosuvastatin Calcium 5 Mg Tab) 5 mg PO HS [facility] Stop: 11/10/20 20:59 Last Admin: 10/11/20 20:42 Dose: 5 mg Documented by:
--- NOTE | 2020-10-12 11:52 | Cardiology Progress Note ---
Date of Service October 12, 2020 Assessment & Plan (1) Sepsis: (2) Hypotension: (3) Chest pain: (4) Paroxysmal atrial fibrillation: -Patient has improved from a blood pressure standpoint with supportive care including antibiotics, although source of infection is still a little unclear, perhaps pneumonia. -She has a history of paroxysmal atrial fibrillation, I think it is reasonable to add back her amiodarone at present since she is in sinus rhythm with visible P waves on telemetry. Metoprolol and diltiazem remain on hold. If she goes into atrial fibrillation, I would have concerns of worsening hemodynamics so I think the amiodarone is an important medication for her despite elevation in her LFTs. Anterior ST depression noted on presentation to the ICU yesterday has improved. Troponin levels while not detectable, are not significantly elevated. And she has no symptoms suggestive angina. Echocardiogram performed 10/11/2020 reveals normal biventricular systolic function without regional wall motion abnormalities. New severe pulmonary hypertension noted on echo. Given the fact that she is on anticoagulation without hypoxia or tachycardia, it is felt that the likelihood of underlying pulmonary embolism is clinically low. Pulmonary hypertension may be reflective of her ascites, pleural effusions with thoughts that although she is perhaps intravascularly volume depleted, she does have total body overload. She is on Eliquis on a chronic basis due to her history of paroxysmal atrial fibrillation. This was discontinued due to her acute renal insufficiency. She is not a candidate for Lovenox given the renal insufficiency. Will start heparin bridge, no bolus. Monitor hemoglobin. Creatinine remains elevated, perhaps related to ATN from hypotension. Palliative care input noted and appreciated. Admission and Anticipated Discharge Date Admission Date: October 10, 2020 Subjective Patient seen in cardiology follow-up of her complaint of chest discomfort noted yesterday, and her history of paroxysmal atrial fibrillation, coronary heart disease. Telemetry and EKG reveals sinus bradycardia in the 50s. There had been concern about junctional rhythm, but P waves visible on EKG and telemetry this morning. Blood pressure has improved with systolic readings in the 130s to 140s. No chest discomfort this morning. No atrial fibrillation noted on telemetry. Physical Exam Physical Exam: Temp Pulse Resp BP Pulse Ox 36.8 C 55 L 17 137/38 L 92 10/12/20 11:14 10/12/20 11:01 10/12/20 11:01 10/12/20 11:01 10/12/20 11:01 Constitutional: WD/WN, vitals as above Respiratory: Auscultation: + diminished lung sounds (Mildly decreased breath sounds bilaterally at the bases); no crackles and no wheezes Cardiovascular: Rate/Rhythm: regular rhythm Heart Sounds: no murmur Extremities: + edema (1+ lower extremity edema, no erythema) Gastrointestinal (Abdomen): No tenderness on palpation Neurologic: Moves all 4 extremities on command Results & Data ([facility]) Vital Signs (Past 12 Hours) Vital Signs Temp Pulse Resp BP Pulse Ox 10/12/20 11:14 36.8 C 10/12/20 11:01 55 L 17 137/38 L 92 10/12/20 11:00 56 L 15 97 10/12/20 10:01 55 L 16 153/40 H 96 10/12/20 10:00 55 L 14 153/40 H 95 10/12/20 09:00 54 L 17 142/39 H 96 10/12/20 08:02 53 L 16 91 10/12/20 08:01 53 L 20 139/46 L 95 10/12/20 08:00 36.5 C 53 L 14 94 10/12/20 07:27 53 L 14 143/31 H 89 L 10/12/20 07:00 52 L 16 73/61 L 10/12/20 04:07 36.4 C L 55 L 16 166/42 H 95 10/12/20 03:25 55 L 17 92 10/12/20 03:01 57 L 15 110/41 L 76 L 10/12/20 02:01 53 L 13 122/44 L 97 10/12/20 01:01 52 L 17 136/31 L 97 10/12/20 00:01 36.7 C 53 L 15 113/47 L 100 Laboratory Results Cardiac Enzymes 10/11/20 10/12/20 Range/Units 16:34 04:55 AST 111 H (15-37) U/L Troponin I 0.036 0.044 (0-0.045) ng/ml CBC 10/12/20 Range/Units 04:55 WBC 11.94 H (4.8-10.8) K/uL RBC 2.81 L (4.2-5.4) M/uL Hgb 8.1 L (12.0-16.0) g/dL Hct 24.9 L (37-47) % Plt Count 236 (130-400) K/uL Neut # (Auto) 7.38 H (1.4-6.5) K/uL Lymph # (Auto) 3.63 H (1.2-3.4) K/uL [place] # (Auto) 0.57 (0.11-0.59) K/uL Eos # (Auto) 0.31 (0-0.5) K/uL Baso # (Auto) 0.03 (0-0.2) K/uL Comprehensive Metabolic Panel 10/12/20 Range/Units 04:55 Sodium 141 (136-145) mmol/L Potassium 4.2 (3.5-5.1) mmol/L Chloride 108 H (98-107) mmol/L Carbon Dioxide 24 (21-32) mmol/L BUN 66 H (7-18) mg/dl Creatinine 3.85 H (0.6-1.2) mg/dl Glucose 93 (70-99) mg/dl Calcium 8.2 L (8.5-10.1) mg/dl AST 111 H (15-37) U/L ALT 43 (12-78) U/L Alkaline Phosphatase 128 H (45-117) U/L Total Protein 4.5 L (6.4-8.2) gm/dl Albumin 2.0 L (3.4-5.0) gm/dl Intake and Output 10/11/20 10/12/20 10/12/20 22:59 06:59 14:59 Intake Total 1920 / 2495 420 / 2495 Output Total 60 / 250 100 / 250 90 / 90 Balance 1860 / 2245 320 / 2245 - / -90 Intake: IV 1920 / 2495 420 / 2495 Linezolid 600 mg In 300 ml @ 300 / 600 300 / 600 200 mls/hr IV Q12H [facility] Rx#: [id number] Piperacillin/Tazobactam 4.5 gm 120 / 240 120 / 240 In Dextrose 5% 100 ml @ 30 mls/ hr IV Q12H [facility] Rx#:[id number] Sodium Chloride 0.9% 1000ML 1, 1500 / 1500 000 ml @ 60 mls/hr IV .[id number] [facility] Rx#:[id number] Output: Urine Amount (Catheter) 60 / 250 100 / 250 90 / 90 Chinchilla/Indwelling 60 / 250 100 / 250 90 / 90 Other: Weight 110.4 kg 110.4 kg Weight Measurement Method Built in [facility] Patient Weight 10/13/20 06:59 Weight 110.4 kg
--- NOTE | 2020-10-12 11:54 | Critical Care Progress Note ---
Date of Service October 12, 2020 Assessment & Plan (1) Sepsis: Chest x-ray 10/10/2020 personally reviewed: Portable film, increased cardiac silhouette, hazy alveolar infiltrate appreciated on the right lower side near the hilum, bilateral costophrenic angles are clean. EKG 10/10/2020:Junctional rhythm, heart rate of 64, T wave flattening on the lateral leads as well as the limb leads. No ST changes. No significant change compared to EKG done 10/10/2020 at 8:30 PM. --Shock improved with fluids Right lower cellulitis could be one of the possibilities. Patient was also found to have Nitropatch which was removed on the night of 10/11/2020 Continue with antibiotics Follow-up septic work-up --Retrosternal chest pain EKG does not show any ST changes 2D echo shows pulmonary hypertension with preserved ejection fraction -- HONEY on CKD Follow-up urine lites Monitor BUN/creatinine Avoid nephrotoxic medications Strict ins and outs --History of A. fib On amiodarone, metoprolol as well as diltiazem Hold all medications right now -- Pulmonary HTN Likely type II with compoent of KIT/OHS continue to monitor --Hypothyroidism Continue with levothyroxine --KIT Continue with CPAP --DNI --Prophylaxis VTE: Heparin --> will be transitioned to heparin drip GI: Protonix Lines: Peripheral Diet: Cardiac renal diet Plan: In/out: +2.2 L, urine output 250 mL DC Zosyn continue with linezolid which will cover for cellulitis. Patient did not have any bowel movement since coming to the ICU. Random cortisol was on the lower side. But patient's blood pressure improved significantly with fluids and removal of the nitro patch Case discussed with Dr. Servin, will resume amiodarone p.o. 200 mg once a day Heparin drip will be restarted for her underlying A. fib. Patient does have pulmonary hypertension but she is not requiring any oxygen. She saturating well on room air. I do not think there is PE. Patient is hemodynamically stable to be downgraded to a medical floor. Overall prognosis remains guarded as there is no significant urine output. Palliative care is on board. Please note the above document was generated using voice recognition software. It may contain grammatical, syntax or spelling errors.Any formal questions or concerns about the content, text or information contained within the body of this dictation should be directly addressed to the provider for clarification. (2) Hypotension: (3) Acute renal failure: (4) Generalized weakness: (5) Chest pain: Admission and Anticipated Discharge Date Admission Date: October 10, 2020 Subjective Patient seen and examined at bedside. No acute distress, no adverse events overnight. Patient is still bradycardic with sinus bradycardia occasional junctional rhythm. She is somnolent but answering all questions appropriately. She used BiPAP overnight. Denies any chest pain, no headache, no nausea, no vomiting. No belly pain. Appetite is decreased. Patient is to have food. Review of Systems Review of Systems: All systems reviewed & are unremarkable except as noted in Subjective Physical Exam Physical Exam: Constitutional: No acute distress HEENT: EOMI, PERRLA Respiratory system: Good air entry bilaterally, no wheeze, no rhonchi, mild crackles bilateral lower lobe CVS: S1-S2 positive, no murmurs or gallops, bradycardia, distant heart sounds Abdomen: Soft, positive bowel sounds x4, obese, tenderness on the left upper and left lower quadrant, no rebound Extremities: +2 pulses bilaterally radialis/ dorsalis pedis, no cyanosis, +3 pitting edema bilateral lower extremity, on the right Mc-medial esqueda, positive rubor, no calor, no dolor Neuro: Awake alert oriented x3, somnolent but easily arousable Psych: Normal mood and affect G/U: No Chinchilla Skin: no rashes, warm and dry Lymphatic: no cervical or axillary lymphadenopathy Results & Data Results & Data ([facility]) Vital Signs (Past 12 Hours) Vital Signs Temp Pulse Resp BP Pulse Ox 10/12/20 11:14 36.8 C 10/12/20 11:01 55 L 17 137/38 L 92 10/12/20 11:00 56 L 15 97 10/12/20 10:01 55 L 16 153/40 H 96 10/12/20 10:00 55 L 14 153/40 H 95 10/12/20 09:00 54 L 17 142/39 H 96 10/12/20 08:02 53 L 16 91 10/12/20 08:01 53 L 20 139/46 L 95 10/12/20 08:00 36.5 C 53 L 14 94 10/12/20 07:27 53 L 14 143/31 H 89 L 10/12/20 07:00 52 L 16 73/61 L 10/12/20 04:07 36.4 C L 55 L 16 166/42 H 95 10/12/20 03:25 55 L 17 92 10/12/20 03:01 57 L 15 110/41 L 76 L 10/12/20 02:01 53 L 13 122/44 L 97 10/12/20 01:01 52 L 17 136/31 L 97 10/12/20 00:01 36.7 C 53 L 15 113/47 L 100 10/12/20 04:55 10/12/20 04:55 Coding Level of Care Code 32477 Subseq Hosp Care Lv 3 Diagnoses Sepsis A41.9 Hypotension I95.9 Acute renal failure N17.9 Acute renal failure type: unspecified Generalized weakness R53.1 Chest pain R07.9 (1) Acute renal failure Acute renal failure type: unspecified Qualified Code(s): N17.9 - Acute kidney failure, unspecified
[2020-10-12] MEDS ORDERED: HEPARIN SODIUM/DEXTROSE 25,000 UNITS/500 ML BAG IV SCH (12:15)
[2020-10-12] MEDS: AMIODARONE 200 MG TAB PO SCH (13:24)
[2020-10-12] MEDS: Heparin IV Adult Wt-Based Standard *NO* Bolus Protocol IV SCH ×4 (13:24→15:07)
[2020-10-12 13:42] LABS: Partial Thromboplastin Ratio 1.5
[2020-10-12] MEDS: D5W AND 1/2NSS 1,000 ML IV SCH (19:18)
[2020-10-12] MEDS: ROSUVASTATIN CALCIUM 5 MG TAB PO SCH (21:05)
[2020-10-12] MEDS: EZETIMIBE 10 MG TABLET PO SCH (21:05)
[2020-10-12 21:43] LABS: Partial Thromboplastin Ratio > 5.3
[2020-10-12 21:47] LABS: Partial Thromboplastin Time > 139.0 Seconds (21.0-31.0)
--- NOTE | 2020-10-12 22:48 | Electrocardiogram Report ---
Test Reason : Blood Pressure : / mmHG Vent. Rate : 053 BPM Atrial Rate : 053 BPM P-R Int : 228 ms QRS Dur : 086 ms QT Int : 512 ms P-R-T Axes : 000 064 061 degrees QTc Int : 480 ms Poor data quality, interpretation may be adversely affected Sinus bradycardia with 1st degree A-V block Low voltage QRS Nonspecific ST abnormality Prolonged QT Abnormal ECG When compared with ECG of 11-OCT-2020 09:34, T wave inversion less evident in Anterolateral leads Confirmed by Romario Low ([id number]) on 10/12/2020 10:48:25 PM Referred By: REFERRED SELF Confirmed By:Romario Low
--- NOTE | 2020-10-12 22:56 | Electrocardiogram Report ---
Test Reason : Blood Pressure : / mmHG Vent. Rate : 055 BPM Atrial Rate : 055 BPM P-R Int : 228 ms QRS Dur : 084 ms QT Int : 462 ms P-R-T Axes : 000 057 057 degrees QTc Int : 441 ms Poor data quality, interpretation may be adversely affected Probable Sinus bradycardia with 1st degree A-V block Low voltage QRS Nonspecific T wave abnormality Abnormal ECG When compared with ECG of 12-OCT-2020 05:34, Nonspecific T wave abnormality now evident in Anterior leads Confirmed by Romario Low ([id number]) on 10/12/2020 10:55:34 PM Referred By: REFERRED SELF Confirmed By:Romario Low
[2020-10-12 23:42] LABS: Partial Thromboplastin Ratio > 5.3
[2020-10-12 23:43] LABS: Partial Thromboplastin Time > 139.0 Seconds (21.0-31.0)
[2020-10-13 01:11] LABS: Partial Thromboplastin Ratio > 5.3
[2020-10-13 01:28] LABS: Partial Thromboplastin Time > 139.0 Seconds (21.0-31.0)
[2020-10-13 03:31] LABS: Partial Thromboplastin Ratio 2.3
[2020-10-13 03:39] LABS: Creatinine Clr Calc Pharmacy 11.5 ml/min; Est GFR (African American) 9.9 ml/min; Est GFR (Non-African American) 8.5 ml/min
[2020-10-13] MEDS: LINEZOLID 600 MG/300 ML BAG IV SCH (04:21)
[2020-10-13] MEDS: LEVOTHYROXINE SODIUM 50 MCG TABLET PO SCH (05:52)
[2020-10-13] MEDS: NYSTATIN POWDER 15GM BTL EXT SCH (07:58)
--- NOTE | 2020-10-13 08:17 | Hospitalist Progress Note ---
Date of Service October 13, 2020 Assessment & Plan (1) Generalized weakness: (2) Sepsis: (3) Hypotension: (4) Elevated lactic acid level: This is an 85-year-old female who presents with ongoing illness. 1. Sepsis: Source could be pneumonia, cellulitis, with elevated lactate of 4.5 , WBC 16K - blood pressure was acceptable on admission however pt hypotensive soon after - received IV 500 NS bolus and albumin and persistently in 70-80s/50s - discussed code status with the pt and family (PAULETTE Armendariz), ok to pressor support if needed -contacted Dr. bueno, geology professor, pt will receive additional IV NS bolus and will be transferred to ICU for further management - BP improved in ICU after IVF, also nitro patch was found and removed -afebrile, currently, saturating 90s% on RA. Because of allergies, empirically started on Zosyn and Zyvox. CT chest obtained, not c/w pneumonia. DC zosyn, cont. linezolid for cellulitis Follow the cultures. IV fluids Repeat lactic acid ~3 2. Chest pain - pt developed chest pain yesterday (10/11) EKG, troponin obtained - cardiology consulted - Echo obtained - Anterior ST depression noted on presentation to the ICU yesterday has improved. Troponin levels detectable, but not significantly elevated. And she has no symptoms suggestive angina. Echocardiogram performed 10/11/2020 reveals normal biventricular systolic function without regional wall motion abnormalities. New severe pulmonary hypertension noted on echo. Given the fact that she is on anticoagulation without hypoxia or tachycardia, it is felt that the likelihood of underlying pulmonary embolism is clinically low. Pulmonary hypertension may be reflective of her ascites, pleural effusions with thoughts that although she is perhaps intravascularly volume depleted, she does have total body overload. 3. Afib Continue amiodarone, hold Toprol-XL, diltiazem due to low BP She is on Eliquis on a chronic basis for Afib. This was discontinued due to her acute renal insufficiency. She is not a candidate for Lovenox given the renal insufficiency. Will start heparin bridge, no bolus. Monitor hemoglobin. 4. Diarrhea - pt reports having loose stools, concern for poss. C. diff given recent Abx treatments - will obtain stool studies - CT abdomen /pelvis obtained 5. Anemia - component of chronic disease in setting of CKD - per Jaquelin, POA, there was concern of GI bleed at [place], Hgb was 8, Eliquis was held - current Hgb 8-9, will cont. to closely monitor 6. HONEY on CKD stage IV: Baseline creatinine around 1.2, presently with creatinine of 3.5. Cr above 3 last wek per Jaquelin (POA) -Last month, she had vancomycin. The patient reported micturating ok, however her urine output is small. We will follow the urinalysis. Cont. IVF, holding Lasix. We will monitor the response. Per Jaquelin pt may have had UTI while at [facility] Consult nephrology - HONEY likely secondary to ATN, continue to closely monitor 7. History of Higginbotham's esophagus: Continue Nexium. 8. Hypothyroidism: Continue Synthroid. 9. Hypertension: Patient hypotensive yesterday, albuterol sepsis/shock, holding diuretics, metoprolol and diltiazem 10. History of depression/ YOBANY: Hold the sertraline while she is on Zyvox. 11. History of hyperlipidemia: Continue Crestor. 12. History of coronary artery disease: Continue Crestor, metoprolol, and Zetia. 13. Morbid obesity: BMI over 40 , would recommend counseling if pt recovers from current illness. 14. Recent lower extremity cellulitis: Mild erythema of lower extremities. Getting antibiotics as above. 16. History of monoclonal gammopathy. 17. DVT prophylaxis: Eliquis switched to heparin Palliative medicine was consulted given patient's declining medical status over the past month at least. After further discussion with family, family decided for discharge with hospice today. Admission and Anticipated Discharge Date Admission Date: October 10, 2020 Subjective Patient seen in follow-up of sepsis and HONEY on CKD Currently she is lying in bed, in NAD She was in ICU due to hypotension, then transferred yesterday after discussion with family and palliative medicine, as family decided for discharge with hospiceplan for today She appears very weak, but she is awake and able to answer some questions She denies having any complaints such as chest pain shortness of breath, abdo elfego pain Urine output has been minimal Cardiology, nephrology, intensive care medicine consulted Palliative medicine also consulted, and after further discussion with family, plan for discharge with hospice Review of Systems Review of Systems: All systems reviewed & are unremarkable except as noted in HPI & below Constitutional: + weakness (Generalized); no fever and no chills Respiratory: no cough and no dyspnea Cardiovascular: + edema; no chest pain and no palpitations Gastrointestinal: no abdominal pain, no nausea and no vomiting Genitourinary: + decreased urination Physical Exam Physical Exam: GENERAL: elderly obese F, not in acute distress. HEENT: NC/AT, Pupils equal, round, and reactive to light. Oral mucosa, reddish tongue. NECK: No JVD, no neck masses seen. CARDIOVASCULAR: S1, S2 heard, regular rate and rhythm, no murmur, no gallop. RESPIRATORY: Normal AP diameter. No accessory muscle use. No wheezing, no crackles. ABDOMEN: Soft, obese, bowel sounds present. No distention. NEURO: awake and alert but appears drowsy, answering simple questions appropriately. Speech fluent but slow, no facial asymmetry, moves extremities. EXTREMITIES: +2-3 pitting B/l lower extremity edema present with mild erythematous changes seen. Results & Data Results & Data ([facility]) Vital Signs (Past 12 Hours) Vital Signs Temp Pulse Pulse Pulse Resp BP BP 10/13/20 07:36 57 L 16 100/55 L 10/13/20 07:22 54 L 10/13/20 06:56 36.4 C L 57 L 16 118/63 10/13/20 03:53 36.7 C 55 L 16 98/49 L 10/12/20 23:59 58 L 10/12/20 22:55 36.7 C 54 L 16 118/68 Pulse Ox 10/13/20 07:36 97 10/13/20 07:22 10/13/20 06:56 93 10/13/20 03:53 95 10/12/20 23:59 10/12/20 22:55 100 Laboratory Results 10/13/20 10/13/20 10/13/20 Range/Units 02:39 02:39 00:33 APTT 60.0 H* > 139.0 H* (21.0-31.0) Seconds PTT Ratio 2.3 > 5.3 Creatinine 4.44 H D (0.6-1.2) mg/dl Est Cr Clr Drug Dosing 11.5 ml/min Est GFR ( Amer) 9.9 ml/min Est GFR (Non-Af Amer) 8.5 ml/min POC Glucose (70-99) mg/dl 10/12/20 10/12/20 10/12/20 Range/Units 22:58 21:12 20:02 APTT > 139.0 H* > 139.0 H* Cancelled (21.0-31.0) Seconds PTT Ratio > 5.3 > 5.3 Cancelled Creatinine (0.6-1.2) mg/dl Est Cr Clr Drug Dosing ml/min Est GFR ( Amer) ml/min Est GFR (Non-Af Amer) ml/min POC Glucose (70-99) mg/dl 10/12/20 10/12/20 Range/Units 13:21 11:46 APTT 40.0 H (21.0-31.0) Seconds PTT Ratio 1.5 Creatinine (0.6-1.2) mg/dl Est Cr Clr Drug Dosing ml/min Est GFR ( Amer) ml/min Est GFR (Non-Af Amer) ml/min POC Glucose 81 (70-99) mg/dl Medications Administered Current Inpatient Medications Acetaminophen (Acetaminophen 325 Mg Tab) 650 mg PO Q4H PRN PRN Reason: Pain or Fever Stop: 11/10/20 02:02 Last Admin: 10/11/20 02:54 Dose: 650 mg Documented by: Amiodarone HCl ([facility]iodarone 200 Mg Tab) [facility] [place]: 11/11/20 11:59 Last Admin: 10/12/20 13:24 Dose: 200 mg Documented by: Diltiazem HCl (Diltiazem Hcl 180 Mg Capcr) 180 [facility] [place] Stop: 11/10/20 08:59 Last Admin: 10/11/20 10:50 Dose: Not Given Documented by: Ezetimibe (Ezetimibe 10 Mg Tablet) 10 mg PO HS [facility] Stop: 11/10/20 20:59 Last Admin: 10/12/20 21:05 Dose: 10 mg Documented by: Linezolid (Zyvox) 600 mg in 300 mls @ 200 mls/hr IV Q12H [facility] Stop: 10/18/20 03:59 Last Infusion: 10/13/20 05:53 Dose: Infused Documented by: Pantoprazole Sodium 40 mg/ (Syringe) 10 mls @ 5 mls/min IV DAILY@1100 [facility] Stop: 11/10/20 10:59 Last Admin: 10/12/20 11:50 Dose: 5 mls/min Documented by: Dextrose/Sodium Chloride (D5w And 1/2nss) 1,000 mls @ 40 mls/hr IV .Q24H [facility] Stop: 11/10/20 17:59 Last Admin: 10/12/20 19:18 Dose: 40 mls/hr Documented by: Heparin Sodium/Dextrose (Heparin Sodium/Dextrose) 25,000 units in 500 mls @ 20 mls/hr IV .Q24H [facility]; Protocol Stop: 11/11/20 12:14 Last Titration: 10/13/20 04:16 Dose: 1,000 units/hr, 20 mls/hr Documented by: Levothyroxine Sodium (Levothyroxine Sodium 50 Mcg Tablet) 50 mcg PO DAILYBB [facility] Stop: 11/10/20 06:29 Last Admin: 10/13/20 05:52 Dose: 50 mcg Documented by: Metoprolol Succinate (Metoprolol Succ 25mg Ext Rel Tab) 25 mg PO QAM [facility] Stop: 11/10/20 08:59 Last Admin: 10/11/20 10:50 Dose: Not Given Documented by: Miscellaneous Information (Linezolid Consult Active) 1 ea N/A UD PRN PRN Reason: Consult Stop: 11/10/20 02:02 Nystatin (Nystatin Powder 15gm Btl) 1 appln EXT BID [facility] Stop: 11/10/20 08:59 Last Admin: 10/13/20 07:58 Dose: 1 appln Documented by: Ondansetron HCl (Ondansetron Inj 2 Mg/Ml 2 Ml Vial) 4 mg IV Q6H PRN PRN Reason: Nausea Stop: 11/10/20 02:02 Rosuvastatin Calcium (Rosuvastatin Calcium 5 Mg Tab) 5 mg PO HS [facility] Stop: 11/10/20 20:59 Last Admin: 10/12/20 21:05 Dose: 5 mg Documented by:
[2020-10-13] MEDS: AMIODARONE 200 MG TAB PO SCH (08:32)
[2020-10-13 10:16] LABS: Partial Thromboplastin Ratio > 5.3
[2020-10-13 10:21] LABS: Partial Thromboplastin Time > 139.0 Seconds (21.0-31.0)
--- NOTE | 2020-10-13 11:16 | Nephrology Progress Note ---
Date of Service October 13, 2020 Assessment & Plan Admission and Anticipated Discharge Date Admission Date: October 10, 2020 Subjective SUBJECTIVE: The patient appears very weak and not interactive. She is not following command to me and sleeping. OBJECTIVE: VITAL SIGNS: Her vital signs appear to be better though with the most recent blood pressure of 137/48, pulse rate 55, temperature 36.8. She is on 3 liters oxygen at this time with good oxygen saturation. HEENT: Mucous membrane is dry, but she has mouth open. CHEST: Bilaterally decreased breath sounds, but very poor inspiratory effort limiting the quality of the exam. CARDIOVASCULAR: S1, S2 regular. ABDOMEN: Soft, nontender. EXTREMITIES: Show trace to 1+ edema. GENITOURINARY: She does have a Chinchilla catheter, but her urine output has been fairly low and is clearly oliguric at this time, 90 mL of urine since 7:00 in the morning. LABORATORY TEST: From this morning shows creatinine is still rising and now 4+ ASSESSMENT AND PLAN: An 85-year-old female who is admitted at this time with multitude of problems including possible sepsis with hypotension and associated acute renal failure on background chronic kidney disease III. Acute renal failure: This is secondary to acute tubular necrosis in the setting of sepsis and hypotension. Urine output still low. However, creatinine still rising. No dialysis need yet today. She does not need dialysis at this point. We will continue to assess her everyday. She is not eating or drinking anything, so the gentle hydration we are doing is appropriate. Continue to hold the diuretics for now. If she does not start recovering renal standpoint within the next 2 days, we will talk with the patient and the family greater depth regarding dialysis need. Results & Data ([facility]) Vital Signs (Past 12 Hours) Vital Signs Temp Pulse Pulse Pulse Resp BP BP 10/13/20 07:36 57 L 16 100/55 L 10/13/20 07:22 54 L 10/13/20 06:56 36.4 C L 57 L 16 118/63 10/13/20 03:53 36.7 C 55 L 16 98/49 L 10/12/20 23:59 58 L Pulse Ox 10/13/20 07:36 97 10/13/20 07:22 10/13/20 06:56 93 10/13/20 03:53 95 10/12/20 23:59
[2020-10-13] MEDS: PANTOprazole 40 MG in SYRINGE 0 ML IV SCH (11:52)
--- NOTE | 2020-10-13 12:03 | Discharge Summary ---
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 The patient was in the hospital in August with pneumonia, treated with antibiotics, discharged on cefdinir and doxycycline. In September, as per the case management report in [facility], from 10/04/2020 to 10/08/2020, she was in [facility], treated for cellulitis of bilateral lower extremities, chronic renal insufficiency and she was discharged currently to [facility]. The patient says she is requiring two people to assist with ambulation and since last 2 days she has poor appetite, not eating or drinking much and she has dry cough. Denies any fever, chills. As per the intermediate, she was saturating mid 85% today but when EMS arrived, she was saturating fine. In the ER, she is saturating 100% on room air. Currently resting comfortably. She also complains of chronic abdominal pain. She is having diarrhea. Denies any blood in stools or black stools. Sometimes she sees blood in the stool from her hemorrhoids. Currently she says she is urinating okay. Denies any hematuria. Denies any burning micturition. Her lower extremity cellulitis is much improved as per the patient. Denies any headache, no blurred visions, no earache. She has chronic runny nose. She has some sore tongue. She says she swallows okay. Denies any chest pain. Currently no shortness of breath. She has dry heaves. She has chronic abdominal pain from hiatal hernia. No flank pains. Currently resting comfortably and hemodynamically stable. Admission Exam Per Admitting Provider GENERAL: The patient is morbidly obese, not in acute distress. VITAL SIGNS: Temperature 36.6, pulse 57, respiratory rate 17, blood pressure 138/60, oxygen 100% on room air. HEENT: Pupils equal, round, and reactive to light. Oral mucosa, reddish tongue. NECK: No JVD, no neck masses seen. CARDIOVASCULAR: S1, S2 heard, regular rate and rhythm, no murmur, no gallop. RESPIRATORY SYSTEM: Normal AP diameter. No accessory muscle use. No wheezing, no crackles. ABDOMEN: Soft, bowel sounds present. No distention. CENTRAL NERVOUS SYSTEM: Cranial nerves II-XII grossly intact, nonfocal. EXTREMITIES: Bilateral lower extremity edema present with mild erythematous changes seen. Principal Diagnosis Sepsis with hypotension HONEY on CKD , fluid overload Pulmonary hypertension Discharge Exam GENERAL: elderly obese F, not in acute distress. HEENT: NC/AT, Pupils equal, round, and reactive to light. Oral mucosa, reddish tongue. NECK: No JVD, no neck masses seen. CARDIOVASCULAR: S1, S2 heard, regular rate and rhythm, no murmur, no gallop. RESPIRATORY: Normal AP diameter. No accessory muscle use. No wheezing, no crackles. ABDOMEN: Soft, obese, bowel sounds present. No distention. NEURO: awake and alert but appears drowsy, answering simple questions appropriately. Speech fluent but slow, no facial asymmetry, moves extremities. EXTREMITIES: +2-3 pitting B/l lower extremity edema present with mild erythematous changes seen. Discharge Data Allergies Allergy/AdvReac Type Severity Reaction Status Date / Time albuterol Allergy Severe severe Verified 10/10/20 21:53 tachycardia "heart rate was 252" levofloxacin [From Levaquin] Allergy Intermediate Tachycardia Verified 10/10/20 21:53 tetracycline Allergy Intermediate Hives Verified 10/10/20 21:53 Dehrnid-Mhc-Eti Reductase Allergy Mild "leg Verified 10/10/20 21:53 Inhibitor cramps" with Lipitor sulfamethoxazole AdvReac Mild nausea/vomi Verified 10/10/20 21:53 [From Bactrim] ting trimethoprim [From Bactrim] AdvReac Mild nausea/vomi Verified 10/10/20 21:53 ting Consultations 10/10/20 22:13 ED Decision to Admit Stat 10/11/20 08:00 Consult Nephrology Routine 10/11/20 10:16 Consult Cardiology Routine 10/11/20 10:43 Consult Palliative Care Routine 10/11/20 10:52 Consult Yard [employer] Routine Ordered Studies 10/11/20 06:48 CT abd pelvis wo con Urgent IMPRESSION: 1. Evidence for volume overload with small to moderate ascites, anasarca, bilateral pleural effusions and interstitial pulmonary edema. 2. No bowel obstruction. Apparent mild wall thickening of the ascending colon. This is likely due to underdistention. Nonspecific colitis could appear similar. 10/11/20 09:30 US point of care ultrasound Urgent 10/11/20 10:34 US renal/blad retro comp Stat IMPRESSION : 1. Mild to moderate ascites 2. 39 mm left renal cyst 3. No evidence of hydronephrosis 10/11/20 10:52 CT chest diagnostic wo con Routine IMPRESSION: 1. Motion compromised study 2. Small bilateral pleural effusions right greater than left 3. Ascites 4. Mild septal edema 5. No evidence of lobar consolidation Hospital Course (1) Generalized weakness: (2) Sepsis: (3) Hypotension: (4) Elevated lactic acid level: This is an 85-year-old female who presents with ongoing illness. 1. Sepsis: Source could be pneumonia, cellulitis, with elevated lactate of 4.5 , WBC 16K - blood pressure was acceptable on admission however pt hypotensive soon after - received IV 500 NS bolus and albumin and persistently in 70-80s/50s - discussed code status with the pt and family (PAULETTE Jaquelin Armendariz), ok to pressor support if needed -contacted Dr. bueno, hospice manager, pt will receive additional IV NS bolus and will be transferred to ICU for further management - BP improved in ICU after IVF, also nitro patch was found and removed -afebrile, currently, saturating 90s% on RA. Because of allergies, empirically started on Zosyn and Zyvox. CT chest obtained, not c/w pneumonia. DC zosyn, cont. linezolid for cellulitis Follow the cultures. IV fluids Repeat lactic acid ~3 2. Chest pain - pt developed chest pain yesterday (10/11) EKG, troponin obtained - cardiology consulted - Echo obtained - Anterior ST depression noted on presentation to the ICU yesterday has improved. Troponin levels detectable, but not significantly elevated. And she has no symptoms suggestive angina. Echocardiogram performed 10/11/2020 reveals normal biventricular systolic function without regional wall motion abnormalities. New severe pulmonary hypertension noted on echo. Given the fact that she is on anticoagulation without hypoxia or tachycardia, it is felt that the likelihood of underlying pulmonary embolism is clinically low. Pulmonary hypertension may be reflective of her ascites, pleural effusions with thoughts that although she is perhaps intravascularly volume depleted, she does have total body overload. 3. Afib Continue amiodarone, hold Toprol-XL, diltiazem due to low BP She is on Eliquis on a chronic basis for Afib. This was discontinued due to her acute renal insufficiency. She is not a candidate for Lovenox given the renal insufficiency. started heparin bridge, no bolus, by cardiology. Monitor hemoglobin. 4. Diarrhea - pt reports having loose stools, concern for poss. C. diff given recent Abx treatments - stool studies ordered - CT abdomen /pelvis obtained - Evidence for volume overload with small to moderate ascites, anasarca, bilateral pleural effusions and interstitial pulmonary edema. No bowel obstruction. Apparent mild wall thickening of the ascending colon. This is likely due to underdistention. Nonspecific colitis could appear similar. 5. Anemia - component of chronic disease in setting of CKD - per PAULETTE Hammer, there was concern of GI bleed at [place], Hgb was 8, Eliquis was held - current Hgb 8-9, will cont. to closely monitor 6. HONEY on CKD stage IV: Baseline creatinine around 1.2, presently with creatinine of 3.5. Cr above 3 last week per Jaquelin (PAULETTE) -Last month, she had vancomycin. The patient reported micturating ok, however her urine output is small. We will follow the urinalysis. Cont. IVF, holding Lasix. We will monitor the response. Per Jaquelin pt may have had UTI while at [facility] Consult nephrology - HONEY likely secondary to ATN, continue to closely monitor No need for dialysis at this point, however patient is getting close for need of dialysis 7. History of Higginbotham's esophagus: Continue Nexium. 8. Hypothyroidism: Continue Synthroid. 9. Hypertension: Patient hypotensive on this admission,2/2 sepsis/shock, holding diuretics, metoprolol and diltiazem 10. History of depression/ YOBANY: Hold the sertraline while she is on Zyvox. 11. History of hyperlipidemia: Continue Crestor. 12. History of coronary artery disease: Continue Crestor, metoprolol, and Zetia. 13. Morbid obesity: BMI over 40 , would recommend counseling if pt recovers from current illness. 14. Recent lower extremity cellulitis: Mild erythema of lower extremities. Getting antibiotics as above. 16. History of monoclonal gammopathy. 17. DVT prophylaxis: Eliquis switched to heparin Palliative medicine was consulted given patient's declining medical status over the past month at least. After further discussion with family, family decided for discharge with hospice. Will discharge pt today. Total Time Total Time Spent Total Time Spent (In Minutes): 40 Total Time Includes: Examination of the Patient, Discharge Planning, Medication Reconciliation and Communication With Other Providers Discharge Plan Discharge Items Patient Disposition: Hospice - Home Reason For Visit: SOB Discharge Diagnosis: Sepsis with hypotension HONEY on CKD , fluid overload Pulmonary hypertension Activity: Per Instructions section Non-emergency contact: Primary Care Provider and Specialist Call non-emergency contact if: you have any medication questions and your symptoms worsen Follow-up/Referrals: Vibha Quiñones MD [Primary Care Provider] - Diet: Regular Diet Comment: as tolerated (per hospice) Addtl Attending Provider Instructions: Patient to be discharged with home hospice. Presented in the hospital with presumed sepsis, hypotension, elevated lactic acid. Recent recurrent readmissions in hospitals. Here also treated for acute kidney injury, poor urine output, required also ICU stay for hypotension. Due to her medical decline over the past month, and overall poor prognosis, palliative medicine was consulted and discussed with family goals of care. Plan to discharge patient with home hospice. Most home medications will not be helpful anymore, discuss with the hospice nurse which medications would be still helpful. Will prescribe medication for pain, shortness of breath, anxiety, to make sure that patient stays at comfort. Pending Studies at Discharge: No Stand-Alone Forms: My [facility] Medications and DC Order Prescriptions: New morphine concentrate 100 mg/5 mL (20 mg/mL) solution 5 mg PO Q6H PRN (Reason: pain) Qty: 30 RF: 0 lorazepam [Ativan] 0.5 mg tablet 0.5 mg PO Q6H PRN (Reason: anxiety) Qty: 7 RF: 0 ondansetron HCl [Zofran] 4 mg tablet 4 mg PO Q8H PRN (Reason: nausea and vomiting) Qty: 10 RF: 0 Continued amiodarone 200 mg Tablet 200 mg PO QAM RF: 0 sertraline 50 mg Tablet 75 mg PO QAM RF: 0 levothyroxine 50 mcg tablet 50 mcg PO DAILYBB RF: 0 tramadol 50 mg tablet 50 mg PO Q4H PRN (Reason: pain) RF: 0 Discontinued metoprolol succinate 50 mg Tablet Extended Release 24 Hr 25 mg PO QAM RF: 0 esomeprazole magnesium 40 mg Capsule,Delayed Release(Dr/Ec) 40 mg PO DAILYBB RF: 0 ezetimibe 10 mg Tablet 10 mg PO HS RF: 0 rosuvastatin [Crestor] 5 mg Tablet 5 mg PO HS RF: 0 furosemide [Lasix] 40 mg Tablet 40 mg PO QAM RF: 0 linezolid 600 mg tablet 600 mg PO BID RF: 0 nystatin 100,000 unit/gram powder 1 applic TOPICAL BID RF: 0 polyethylene glycol 3350 [Miralax] 17 gram/dose Powder 17 g PO QAM RF: 0 Eliquis 2.5 mg Tablet 2.5 mg PO BID RF: 0 acetaminophen 325 mg tablet 650 mg PO Q6H PRN (Reason: fever or pain) RF: 0 diltiazem HCl [Cardizem CD] 180 mg capsule,extended release 24hr 180 mg PO QAM RF: 0 Discharge Orders: Discharge Order (Routine); Ordered 10/13/20 Ordered By: Brock Parnell Admission Data Admit Date/Time: 10/10/20 23:12 Attending Provider: Brock Parnell Admit Provider: Stefan De León Primary Care Provider: Vibha Quiñones Other Providers: Stefan De León ; Yaz Parisi ; Hosea Nix ; Tita Gomez ; Melia Montez Japheth E. ; Mathew Dale ; Lance Servin ; Katy Negron ; Tres Bueno Other Interventions: Discharge Summary Assessment (RN) Last Done: 10/13/20 12:05
[2020-10-13] MEDS ORDERED: oxyCODONE HCL IR 5 MG TAB (IMMEDIATE RELEASE) PO STA (13:35)
--- NOTE | 2020-10-13 15:59 | Palliative Care Progress Note ---
Date of Service October 13, 2020 Assessment & Plan (1) Palliative care encounter: Plan for discharge to [facility] today with hospice per family wishes. She appears stable for transport. Will premedicate with oxycodone prior to transfer due to pain with humerus fracture. Admission and Anticipated Discharge Date Admission Date: October 10, 2020 Subjective Sleeping but easily arousable. She is able to tell me that she is going to [facility] today. She denies pain at rest but does have pain in her right shoulder with movement. Review of Systems Review of Systems: [place] Symptom Assessment Scale Pain 1/3 Dyspnea 0/3 Anxiety 0/3 Drowsiness 1/3 Palliative Performance Score 20% Physical Exam Constitutional: comfortable ENMT: Mouth: + dry oral mucous membranes Respiratory: normal respiratory effort; no labored breathing Cardiovascular: Extremities: + edema Gastrointestinal (Abdomen): Percussion/Palpation: abdomen nontender Musculoskeletal: right shoulder pain Skin: warm and dry Neurologic: awake; not confused Results & Data ([facility]) Vital Signs (Past 12 Hours) Vital Signs Temp Pulse Pulse Pulse Resp BP BP 10/13/20 15:05 87 10/13/20 12:05 97.7 F 64 57 L 16 118/63 121/49 L 10/13/20 11:25 97.7 F 64 16 121/49 L 10/13/20 07:36 57 L 16 100/55 L 10/13/20 07:22 54 L 10/13/20 06:56 97.5 F L 57 L 16 118/63 Pulse Ox 10/13/20 15:05 10/13/20 12:05 97 10/13/20 11:25 97 10/13/20 07:36 97 10/13/20 07:22 10/13/20 06:56 93 PG Care Time/CCT Total # of Minutes Spent Total Time Spent with Patient: Total time spent is greater than 50% in coordination of care (as documented) at patient's floor/unit and/or counseling patient: Coding Level of Care Code 28159 Subseq Hosp Care Lvl 2 Diagnoses Palliative care encounter Z51.5
== END 2020-10-13 16:03 | disposition hospice, home (50) ==
LOC: ED 20:31 → 2S 23:12 → 1E 10-11 09:29 → 2W 10-12 14:22